=== PATIENT | female | born 1975 | race Caucasian/White ===

== ENCOUNTER → 2020-11-19 08:27 | Outpatient (BNVA) | payer BC, SELFPAY | PROVIDERS: PCP Physician Assistant; Referring Provider Physician Assistant; Visit Provider Surgery ==

== ENCOUNTER 2020-12-01 06:27 | Day surgery (SDC) | payer BC, SELFPAY ==
[2020-11-24 07:13] LABS: MANUAL DIFF FLAG NO
[2020-11-24 07:19] LABS: Basophils Percent Auto 0.3 % (0-2); Hematocrit 38.8 % (37-47); Hemoglobin 12.7 g/dl (12.0-16.0); Imm Gran Abs Auto 0.01 X10*3/uL (0.00-0.03); Imm Gran Pct Auto 0.3 % (0.0-0.4); Lymphocytes Percent Auto 24.4 % (20-40); Mean Corpuscular HGB Conc 32.7 g/dl (31.0-35.0); Mean Corpuscular Hemoglobin 28.1 pg (27.0-33.0); Mean Corpuscular Volume 85.8 fL (80-98); Mean Platelet Volume 10.2 fL (9.4-12.3); Monocytes Absolute Auto 0.3 X10*3/uL (0.1-1.2); Monocytes Percent Auto 7.8 % (2-11); Neutrophils Absolute Auto 2.6 X10*3/uL (2.0-8.3); Neutrophils Percent Auto 66.2 % (45-73); Platelet Count 235 X10*3/uL (160-400); Red Blood Count 4.52 X10*6/uL (4.20-5.50); Red Cell Distribution Width 13.2 % (11.0-16.0)
[2020-11-24 07:43] LABS: Estimated Average Glucose 100 mg/dL; Hemoglobin A1c % 5.1 %
[2020-11-24 07:49] LABS: Alanine Aminotransferase 12 U/L (0-31); Albumin Level 4.3 g/dL (3.5-5.0); Alkaline Phosphatase 48 U/L (39-117); Anion Gap 11 (12-20); Aspartate Amino Transferase 16 U/L (5-31); Bilirubin Total 0.9 mg/dL (0.0-1.0); Blood Urea Nitrogen 19 mg/dL (9-16); C Reactive Protein 1.03 mg/dL (< or = 0.50); Calcium 9.2 mg/dL (8.4-10.2); Carbon Dioxide 24 mmol/L (22-29); Chloride 107 mmol/L (96-108); Cholesterol 199 mg/dL; Estimated Glomerular Filt Rate > 60; Glucose Fasting 105 mg/dL (60-99); HDL Cholesterol 62 mg/dL; Iron 109 mcg/dL (30-160); LDL Cholesterol Calculated 114 mg/dl; Percent Iron Saturation 24 % (15-50); Potassium 4.1 mmol/L (3.3-5.1); Sodium 138 mmol/L (135-145); Total Iron Binding Capacity 446 mcg/dL (228-428); Total Protein 6.9 g/dL (6.5-8.0); Triglycerides 119 mg/dL; Unsaturated Iron Binding 337 ug/dL
--- NOTE | 2020-11-24 07:50 | ECG_ITS ---
Test Reason : OBESITY Blood Pressure : / mmHG Vent. Rate : 075 BPM Atrial Rate : 075 BPM P-R Int : 162 ms QRS Dur : 084 ms QT Int : 414 ms P-R-T Axes : 005 -23 -11 degrees QTc Int : 462 ms Normal sinus rhythm Normal ECG No previous ECGs available Referred By: Hilaria Tracey Electronically Signed By:JODY LONG MD
[2020-11-24 08:11] LABS: Thyroid Stimulating Hormone 1.86 uIU/mL (0.32-4.0); Vitamin D 25-OH Total 25.5 ng/mL (>30)
[2020-11-24 08:24] LABS: Vitamin B12 185 pg/mL (200-900)
[2020-11-24 13:42] VITALS: BMI 47.9
[2020-11-25 12:21] LABS: Calcium (PTHI) 9.4 mg/dL (8.6-10.2); PTHI 107 pg/mL (14-64)
[2020-11-27 00:16] LABS: Zinc 81 mcg/dL (60-130)
[2020-11-28 12:22] LABS: Vitamin B1 10 nmol/L (8-30)
--- NOTE | 2020-11-30 08:57 | HO.ANESPROP2 ---
Documented by User: Hermelinda Kim 11/30/20 08:59 HPI - Anesthesia Eval Consult details Narrative: 45yo F for Upper Endoscopy h/o gastric bypass PMFSH Active Problems Active Problems: All Active Problems (Updated 11/24/20 @ 13:44 by sAhwini Sanchez) Screening for diabetes mellitus (DM) (Acute) Screening for hypothyroidism (Acute) Screening for hypercholesterolemia (Acute) Screening, anemia, deficiency, iron (Acute) Shortness of breath (Acute) Preoperative examination (Acute) Morbid obesity due to excess calories (Acute) BMI 45.0-49.9, adult (Acute) Past Medical History Medical History Anxiety COVID-19 vaccine administered Depression Family history of adverse response to anesthesia in mother History of insomnia History of pernicious anemia Migraines Tachycardia Family History Family History Mother Diabetes Heart attack Father No problems noted. Brother No problems noted. Daughter No problems noted. Surgical History Surgical History History of bunionectomy History of tonsillectomy and adenoidectomy Hx of gastric bypass Hx of hernia repair S/P panniculectomy Social History Social History Are you a primary acute care occupational therapist to a significant other at home: No Do you presently have visiting nurse or other home services: No Alcohol intake: current Alcohol intake frequency: holidays/special occasions only Smoking Status: Former smoker Smoking Quit Date: > 5 yrs ago Use of substances other than those prescribed or required for medical reasons: No Have you been hit, kicked, punched, or otherwise hurt by someone within the past year? If so, by whom?: No Are you DNR?: No Advance Directives: No Advance Directives Information Provided: No Advance Directives on File: No Recently lost weight without trying: No Eating poorly because of decreased appetite: No Nutrition Risks: No Nutritional Risk Meds Allergies Allergy/AdvReac Type Severity Reaction Status Date / Time oxycodone [From PERCOCET] Allergy Unknown ITCHY Verified 12/01/20 06:36 Home Medications Medication Instructions Recorded Confirmed Last Taken Type bupropion HCl 150 mg 24 hr tablet, 150 mg PO QAM 09/20/20 11/24/20 Unknown History extended release citalopram 40 mg tablet 40 mg PO DAILY 09/20/20 11/24/20 Unknown History ergocalciferol (vitamin D2) 1,250 1,250 mcg PO QWEEK 11/19/20 11/24/20 Unknown History mcg (50,000 unit) capsule sumatriptan succinate 100 mg tablet 100 mg PO BEDTIME 11/19/20 11/24/20 Unknown History topiramate 25 mg tablet 25 mg PO BID 11/19/20 11/24/20 Unknown History lorazepam 1 mg tablet 1 mg PO DAILY PRN 11/22/20 11/24/20 Unknown History [id number]-[id number] 1 cap PO Q8H PRN 11/24/20 11/24/20 Unknown History [Fioricet] Exam Exam Date and Time: November 30, 2020 0857 Height,Weight and Vital Signs: Height 5 ft 4 in Weight 126.552 kg Pertinent Lab Results Pertinent Lab Results: Laboratory Tests 11/24/20 11/24/20 11/24/20 06:50 06:50 06:50 WBC 4.0 L RBC 4.52 Hgb 12.7 Hct 38.8 MCV 85.8 MCH 28.1 MCHC 32.7 RDW 13.2 Plt Count 235 MPV 10.2 Immature Gran % (Auto) 0.3 Neut % (Auto) 66.2 Lymph % (Auto) 24.4 [place] % (Auto) 7.8 Eos % (Auto) 1.0 Baso % (Auto) 0.3 Lymph # (Auto) 1.0 L [place] # (Auto) 0.3 Eos # (Auto) 0.0 Baso # (Auto) 0.0 Abs Immat Gran (auto) 0.01 Absolute Neuts (auto) 2.6 Absolute Nucleated RBC 0.000 Nucleated RBC % (auto) 0.0 Sodium 138 Potassium 4.1 Chloride 107 Carbon Dioxide 24 Anion Gap 11 L BUN 19 H Creatinine 0.74 Estim Creat Clear Calc TNP Estimated GFR > 60 Fasting Glucose 105 H Estimat Average Glucose 100 Hemoglobin A1c % 5.1 Calcium 9.2 Iron 109 TIBC 446 H % Saturation 24 Unsat Iron Binding 337 Total Bilirubin 0.9 AST 16 ALT 12 Alkaline Phosphatase 48 C-Reactive Protein 1.03 H Total Protein 6.9 Albumin 4.3 Triglycerides 119 Cholesterol 199 LDL Cholesterol, Calc 114 HDL Cholesterol 62 Vitamin B1 Vitamin B12 25-OH Vitamin D Total 25.5 TSH 1.86 PTH Intact Calcium (PTH Intact) Zinc 11/24/20 11/24/20 11/24/20 06:50 06:50 06:50 WBC RBC Hgb Hct MCV MCH MCHC RDW Plt Count MPV Immature Gran % (Auto) Neut % (Auto) Lymph % (Auto) [place] % (Auto) Eos % (Auto) Baso % (Auto) Lymph # (Auto) [place] # (Auto) Eos # (Auto) Baso # (Auto) Abs Immat Gran (auto) Absolute Neuts (auto) Absolute Nucleated RBC Nucleated RBC % (auto) Sodium Potassium Chloride Carbon Dioxide Anion Gap BUN Creatinine Estim Creat Clear Calc Estimated GFR Fasting Glucose Estimat Average Glucose Hemoglobin A1c % Calcium Iron TIBC % Saturation Unsat Iron Binding Total Bilirubin AST ALT Alkaline Phosphatase C-Reactive Protein Total Protein Albumin Triglycerides Cholesterol LDL Cholesterol, Calc HDL Cholesterol Vitamin B1 10 Vitamin B12 185 L 25-OH Vitamin D Total TSH PTH Intact 107 H Calcium (PTH Intact) 9.4 Zinc 11/24/20 06:50 WBC RBC Hgb Hct MCV MCH MCHC RDW Plt Count MPV Immature Gran % (Auto) Neut % (Auto) Lymph % (Auto) [place] % (Auto) Eos % (Auto) Baso % (Auto) Lymph # (Auto) [place] # (Auto) Eos # (Auto) Baso # (Auto) Abs Immat Gran (auto) Absolute Neuts (auto) Absolute Nucleated RBC Nucleated RBC % (auto) Sodium Potassium Chloride Carbon Dioxide Anion Gap BUN Creatinine Estim Creat Clear Calc Estimated GFR Fasting Glucose Estimat Average Glucose Hemoglobin A1c % Calcium Iron TIBC % Saturation Unsat Iron Binding Total Bilirubin AST ALT Alkaline Phosphatase C-Reactive Protein Total Protein Albumin Triglycerides Cholesterol LDL Cholesterol, Calc HDL Cholesterol Vitamin B1 Vitamin B12 25-OH Vitamin D Total TSH PTH Intact Calcium (PTH Intact) Zinc 81 Narrative Narrative: EKG 11/2020 Vent. Rate : 075 BPM Atrial Rate : 075 BPM P-R Int : 162 ms QRS Dur : 084 ms QT Int : 414 ms P-R-T Axes : 005 -23 -11 degrees QTc Int : 462 ms Normal sinus rhythm Normal ECG No previous ECGs available Assessment and Plan Assessment Anesthesia Assessment: Chart Reviewed Documented by User: Gilmar Rice 12/01/20 07:06 PMFSH Past Medical History Medical History Anxiety COVID-19 vaccine administered Depression Family history of adverse response to anesthesia in mother History of insomnia History of pernicious anemia Migraines Tachycardia Family History Family History Mother Diabetes Heart attack Father No problems noted. Brother No problems noted. Daughter No problems noted. Surgical History Surgical History History of bunionectomy History of tonsillectomy and adenoidectomy Hx of gastric bypass Hx of hernia repair S/P panniculectomy Social History Social History Are you a primary acute care occupational therapist to a significant other at home: No Do you presently have visiting nurse or other home services: No Alcohol intake: current Alcohol intake frequency: holidays/special occasions only Smoking Status: Former smoker Smoking Quit Date: > 5 yrs ago Use of substances other than those prescribed or required for medical reasons: No Have you been hit, kicked, punched, or otherwise hurt by someone within the past year? If so, by whom?: No Are you DNR?: No Advance Directives: No Advance Directives Information Provided: No Advance Directives on File: No Recently lost weight without trying: No Eating poorly because of decreased appetite: No Nutrition Risks: No Nutritional Risk Meds Allergies Allergy/AdvReac Type Severity Reaction Status Date / Time oxycodone [From PERCOCET] Allergy Unknown ITCHY Verified 12/01/20 06:36 Home Medications Medication Instructions Recorded Confirmed Last Taken Type bupropion HCl 150 mg 24 hr tablet, 150 mg PO QAM 09/20/20 11/24/20 Unknown History extended release citalopram 40 mg tablet 40 mg PO DAILY 09/20/20 11/24/20 Unknown History ergocalciferol (vitamin D2) 1,250 1,250 mcg PO QWEEK 11/19/20 11/24/20 Unknown History mcg (50,000 unit) capsule sumatriptan succinate 100 mg tablet 100 mg PO BEDTIME 11/19/20 11/24/20 Unknown History topiramate 25 mg tablet 25 mg PO BID 11/19/20 11/24/20 Unknown History lorazepam 1 mg tablet 1 mg PO DAILY PRN 11/22/20 11/24/20 Unknown History nbwxmpeszk-ymqhfroeyotph-qrcw 1 cap PO Q8H PRN 11/24/20 11/24/20 Unknown History [Fioricet] Exam Airway Mallampati Class: III TM Dist: >3cm Neck ROM: Full
--- NOTE | 2020-11-30 11:11 | MHC.SHP ---
Pre-Procedural Eval Section B Chief Complaint: GERD,z01.818 Allergies: Allergies Allergy/AdvReac Type Severity Reaction Status Date / Time oxycodone [From PERCOCET] Allergy Unknown ITCHY Verified 11/24/20 13:38 Plan I have reviewed the history and physical and performed a pertinent physical examination on my patient. No changes have occurred unless specified.
[2020-11-30 13:21] LABS: Vitamin A 51 mcg/dL (38-98)
--- NOTE | ~2020-12-01 | XR_ITS ---
EXAMINATION: XR CHEST CLINICAL INFORMATION: Shortness of breath. COMPARISON: None TECHNIQUE: 2 views of the chest were obtained. FINDINGS: No significant abnormality is noted involving the heart, lungs, mediastinum, bony thorax or soft tissues. XR/XR chest 2V IMPRESSION: Unremarkable chest examination.
[2020-12-01 06:41] VITALS: BP 115/69; PULSE 73; RESP 16; TEMP 36.8; O2SAT 97
[2020-12-01 06:48] LABS: UPreg QC Valid YES; Urine Pregnancy NEGATIVE (NEGATIVE)
[2020-12-01] MEDS: Lactated Ringers 1,000 ML 100 ML IVCONT (06:57)
[2020-12-01 07:03] LABS: COVID-19 Test Negative (Negative)
[2020-12-01 08:07] VITALS: BP 127/77; PULSE 71; RESP 14; TEMP 36.4; O2SAT 96
--- NOTE | 2020-12-01 08:18 | P.BOP_ITS ---
Brief Operative Note Date of Service: 12/01/20 Pre-op diagnosis: Weight gain after gastric bypass Post-op diagnosis: other (Enlarged gastric pouch and sliding hiatal hernia) Procedure: Esophagogastrojejunostomy, enteroscopy to 90 cm from the incisors Implants: None Surgeon: Hilaria Tracey MD Anesthesia: MAC Was an Jewelry Store Manager used for this Procedure?: No Estimated blood loss (mL): 0 Pathology: none sent Condition: stable Disposition: PACU
[2020-12-01 08:23] VITALS: BP 124/77; PULSE 68; RESP 16; O2SAT 98
[2020-12-01 08:30] VITALS: PULSE 62; RESP 16; O2SAT 98
--- NOTE | 2020-12-01 13:30 | OP_ITS ---
SURGEON: Hilaria Tracey MD PREOPERATIVE DIAGNOSIS: POSTOPERATIVE DIAGNOSIS: PROCEDURE PERFORMED: Esophagogastrojejunoscopy with enteroscopy to 90 cm from the incisors. ESTIMATED BLOOD LOSS: COMPLICATIONS: None. ANESTHESIA: Total intravenous anesthesia with propofol given by the nurse bisque grader. ASSISTANTS: None. SPECIMENS: PRE-PROCEDURE DIAGNOSIS: Weight gain after gastric bypass. POSTPROCEDURE DIAGNOSES: Enlarged gastric pouch and sliding hiatal hernia. FINDINGS: An enlarged gastric pouch with the GE junction located at 34 cm from the incisors and the gastrojejunal anastomosis was located at 42 cm from the incisors. The gastric part was enlarged. The anastomotic opening was normal in size and was not too large. There was a small sliding hiatal hernia that was about 2 cm in size. DESCRIPTION OF PROCEDURE: The patient was brought into the operating room and placed on the stretcher in the left lateral decubitus position. A safety time-out was performed. A bite block was placed between the teeth. Total intravenous anesthesia was administered using propofol by the nurse bisque grader. Once the patient was adequately sedated, a gastroscope was placed into posterior oropharynx and passed down the esophagus, evaluating the esophageal mucosa, which was normal. There was a small sliding hiatal hernia and the GE junction was located at 34 cm from the incisors. The gastroscope was passed into the gastric pouch, which was large for its age. The gastrojejunal anastomosis was located at 42 cm from the incisors. The anastomotic opening was normal in size for its age and was not overly enlarged. The gastroscope was easily passed into the efferent limb of the [place] limb and was passed down to 90 cm from the incisors, all of which was normal. The gastroscope was retracted back into the stomach. The stomach was desufflated. The gastroscope was removed without difficulty. The patient tolerated the procedure well and was sent to the recovery room in stable condition. MD BENTLEY Goodson/SONUL / [id number] MTDD
== END 2020-12-01 08:50 | disposition home or self-care (01) ==
PROVIDERS: Nurse Practitioner; PCP Physician Assistant; Visit Provider Surgery
PROC: 0DJ08ZZ Inspection of Upper Intestinal Tract, Via Natural or Artificial Opening Endoscopic (ICD-10-PCS; CPT 43235; principal; 2020-12-01 07:30)
DX: K21.9 Gastro-esophageal reflux disease without esophagitis (principal); R06.02 Shortness of breath; K91.2 Postsurgical malabsorption, not elsewhere classified; R63.5 Abnormal weight gain; Z90.3 Acquired absence of stomach [part of]; Z98.84 Bariatric surgery status; K44.9 Diaphragmatic hernia without obstruction or gangrene; F32.9 Major depressive disorder, single episode, unspecified; Z20.822 Contact with and (suspected) exposure to COVID-19; Z79.899 Other long term (current) drug therapy; Z88.8 Allergy status to other drugs, medicaments and biological substances
CPT/HCPCS: 43235; 36415; 71046; 80053; 80061; 81025; 82306; 82607; 83036; 83540; 83970; 84425; 84443; 84590; 84630; 85025; 86140; 87635; 93005; J1100; J2250

== ENCOUNTER → 2020-12-07 08:15 | Outpatient (BNVA) | payer BC, SELFPAY | PROVIDERS: PCP Physician Assistant; Visit Provider Surgery ==

== ENCOUNTER → 2020-12-21 08:07 | Outpatient (BNVA) | payer BC, SELFPAY | PROVIDERS: PCP Physician Assistant; Visit Provider Dietitian, Registered | DX: E66.01 Morbid (severe) obesity due to excess calories (principal) | CPT/HCPCS: 97802 ==

== ENCOUNTER → 2021-01-04 10:10 | Outpatient (BNVA) | payer BC, SELFPAY | PROVIDERS: PCP Physician Assistant; Referring Provider Physician Assistant; Visit Provider Surgery ==

== ENCOUNTER 2021-01-27 09:38 | Outpatient (REF) | payer BC, SELFPAY ==
[2021-01-28 12:22] LABS: H Pylori Breath Test NOT DETECTED (NOT DETECTED)
== END 2021-01-27 09:39 | disposition home or self-care (01) ==
LOC: HO.LNP 09:38
PROVIDERS: PCP Physician Assistant; Referring Provider Physician Assistant; Visit Provider Surgery
DX: Z01.818 Encounter for other preprocedural examination (principal); E66.01 Morbid (severe) obesity due to excess calories; Z68.42 Body mass index [BMI] 45.0-49.9, adult; Z71.3 Dietary counseling and surveillance
CPT/HCPCS: 83013

== ENCOUNTER 2021-03-17 12:29 | Outpatient (REF) | payer BC, SELFPAY | END 2021-03-17 12:30 | disposition home or self-care (01) | LOC: HO.LAB 12:29 | PROVIDERS: PCP Physician Assistant; Visit Provider Nurse Practitioner Family | DX: Z20.822 Contact with and (suspected) exposure to COVID-19 (principal); R52 Pain, unspecified | CPT/HCPCS: U0003; U0005 ==

== ENCOUNTER 2021-08-08 08:06 | Outpatient (REF) | payer BC, SELFPAY ==
--- NOTE | ~2021-08-08 | US_ITS ---
EXAMINATION: US ABDOMEN COMPLETE CLINICAL INFORMATION: Right upper quadrant pain. COMPARISON: None TECHNIQUE: Real-time imaging of the abdominal viscera. Technically limited study secondary to body habitus. FINDINGS: PANCREAS: Not well visualized due to bowel gas. ABDOMINAL AORTA: Not well visualized due to bowel gas. INFERIOR VENA CAVA: The visualized IVC is normal. LIVER: Normal. The liver is normal in size. The liver contour is normal. Parenchymal echogenicity is normal. No focal hepatic lesion. There is no intrahepatic biliary duct dilatation seen. GALLBLADDER: The gallbladder is physiologically distended. Multiple mobile gallstones are present. No evidence of gallbladder wall thickening or pericholecystic fluid. COMMON BILE DUCT: Normal in caliber measuring 0.3 cm in diameter. RIGHT KIDNEY: Normal. No hydronephrosis. No renal calculi or focal parenchymal lesions. The kidney measures 10.1 cm in maximum dimension. LEFT KIDNEY: Normal. No hydronephrosis. No renal calculi or focal parenchymal lesions. The kidney measures 10.5 cm in maximum dimension. SPLEEN: Normal. The spleen measures 11.2 cm in maximum dimension. FREE FLUID: None. US/US abdomen complete IMPRESSION: Gallstones. Limited visualization of the pancreas and aorta.
== END 2021-08-08 08:07 | disposition home or self-care (01) ==
LOC: HO.US 08:06
PROVIDERS: PCP Physician Assistant; Visit Provider Physician Assistant
DX: R10.11 Right upper quadrant pain (principal)
CPT/HCPCS: 76700

== ENCOUNTER → 2021-09-08 08:38 | Outpatient (BNVA) | payer BC, SELFPAY | PROVIDERS: PCP Physician Assistant; Referring Provider Physician Assistant; Visit Provider Surgery ==

== ENCOUNTER 2021-11-09 05:56 | Day surgery (SDC) | payer BC, SELFPAY ==
[2021-11-03 14:54] VITALS: BMI 48.2
--- NOTE | 2021-11-08 08:11 | HO.ANESPROP2 ---
Documented by User: Hermelinda Kim NP 11/08/21 08:19 HPI - Anesthesia Eval Consult details Narrative: 46yo F for Cholecystectomy Laparoscopic, Poss Open PMFSH Active Problems Active Problems: All Active Problems (Updated 11/03/21 @ 15:00 by Ashwini Sanchez RN) Screening for diabetes mellitus (DM) (Acute) Screening for hypothyroidism (Acute) Screening for hypercholesterolemia (Acute) Screening, anemia, deficiency, iron (Acute) Shortness of breath (Acute) Preoperative examination (Acute) Morbid obesity due to excess calories (Acute) BMI 45.0-49.9, adult (Acute) Skin cyst (Acute) Generalized body aches (Acute) Annual physical exam (Acute) RUQ abdominal pain (Acute) Skin cyst (Acute) Loss of transverse plantar arch of left foot (Acute) Foot pain, bilateral (Acute) Cholelithiasis (Acute) Biliary colic (Acute) Atypical chest pain (Acute) Migraines (Acute) Anxiety (Acute) Past Medical History Medical History Anxiety COVID-19 vaccine administered Depression Family history of adverse response to anesthesia in mother Hiatal hernia History of insomnia History of pernicious anemia Migraines Obesity Personal history of COVID-19 Tachycardia Family History Family History Mother Diabetes Heart attack Father No problems noted. Brother No problems noted. Daughter No problems noted. Surgical History Surgical History History of bunionectomy History of esophagogastroduodenoscopy (EGD) History of tonsillectomy and adenoidectomy Hx of gastric bypass Hx of hernia repair S/P panniculectomy Social History Social History Housing: House Are you a primary healthcare liaison to a significant other at home: No Do you presently have visiting nurse or other home services: No Alcohol intake: current Alcohol intake frequency: a few times a month Patient Tobacco Use Status: Former Tobacco user Quit Date: many yrs ago Tobacco use type: Cigarette Use of substances other than those prescribed or required for medical reasons: No Have you been hit, kicked, punched, or otherwise hurt by someone within the past year? 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 Allergies Allergy/AdvReac Type Severity Reaction Status Date / Time oxycodone [From PERCOCET] Allergy Unknown ITCHY Verified 11/09/21 06:18 Home Medications Medication Instructions Recorded Confirmed Last Taken Type citalopram 40 mg tablet 40 mg PO DAILY 09/20/20 11/03/21 11/09/21 05:30 History sumatriptan succinate 100 mg tablet 100 mg PO BEDTIME 11/19/20 09/08/21 Unknown History topiramate 25 mg tablet 25 mg PO BID 11/19/20 11/03/21 Unknown History lorazepam 1 mg tablet 1 mg PO DAILY PRN 11/22/20 11/03/21 Unknown History cholecalciferol (vitamin D3) 50 3,000 unit PO DAILY cap 01/04/21 11/03/21 Unknown History mcg (2,000 unit) capsule cyanocobalamin (vitamin B-12) 1,000 mcg PO DAILY 01/04/21 11/03/21 Unknown History 1,000 mcg capsule omeprazole 20 mg capsule,delayed 20 mg PO DAILY 01/04/21 11/03/21 Unknown History release Exam Exam Date and Time: November 08, 2021 0811 Height,Weight and Vital Signs: Height 5 ft 4 in Weight 127.459 kg Pertinent Lab Results Pertinent Lab Results: Laboratory Tests 11/24/20 11/24/20 06:50 06:50 WBC 4.0 L Hgb 12.7 Hct 38.8 Plt Count 235 Sodium 138 Potassium 4.1 Chloride 107 Carbon Dioxide 24 BUN 19 H Creatinine 0.74 Narrative Narrative: EKG 11/2020 Vent. Rate : 075 BPM ? ? Atrial Rate : 075 BPM ?? P-R Int : 162 ms? QRS Dur : 084 ms ? ? QT Int : 414 ms ? ? ? P-R-T Axes : 005 -23 -11 degrees ?? QTc Int : 462 ms ? Normal sinus rhythm Normal ECG No previous ECGs available Assessment and Plan Assessment Anesthesia Assessment: Chart Reviewed Documented by User: Marsha Lozano MD 11/09/21 08:11 PMFSH Past Medical History Medical History Anxiety COVID-19 vaccine administered Depression Family history of adverse response to anesthesia in mother Hiatal hernia History of insomnia History of pernicious anemia Migraines Obesity Personal history of COVID-19 Tachycardia Family History Family History Mother Diabetes Heart attack Father No problems noted. Brother No problems noted. Daughter No problems noted. Family history of problems with anesthesia: No Surgical History Surgical History History of bunionectomy History of esophagogastroduodenoscopy (EGD) History of tonsillectomy and adenoidectomy Hx of gastric bypass Hx of hernia repair S/P panniculectomy History of Problems with Anesthesia: No Social History Social History Housing: House Are you a primary healthcare liaison to a significant other at home: No Do you presently have visiting nurse or other home services: No Alcohol intake: current Alcohol intake frequency: a few times a month Patient Tobacco Use Status: Former Tobacco user Quit Date: many yrs ago Tobacco use type: Cigarette Use of substances other than those prescribed or required for medical reasons: No Have you been hit, kicked, punched, or otherwise hurt by someone within the past year? 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 Allergies Allergy/AdvReac Type Severity Reaction Status Date / Time oxycodone [From PERCOCET] Allergy Unknown ITCHY Verified 11/09/21 06:18 Home Medications Medication Instructions Recorded Confirmed Last Taken Type citalopram 40 mg tablet 40 mg PO DAILY 09/20/20 11/03/21 11/09/21 05:30 History sumatriptan succinate 100 mg tablet 100 mg PO BEDTIME 11/19/20 09/08/21 Unknown History topiramate 25 mg tablet 25 mg PO BID 11/19/20 11/03/21 Unknown History lorazepam 1 mg tablet 1 mg PO DAILY PRN 11/22/20 11/03/21 Unknown History cholecalciferol (vitamin D3) 50 3,000 unit PO DAILY cap 01/04/21 11/03/21 Unknown History mcg (2,000 unit) capsule cyanocobalamin (vitamin B-12) 1,000 mcg PO DAILY 01/04/21 11/03/21 Unknown History 1,000 mcg capsule omeprazole 20 mg capsule,delayed 20 mg PO DAILY 01/04/21 11/03/21 Unknown History release Exam Height,Weight and Vital Signs: Height 5 ft 4 in Weight 127.459 kg Vital Signs Temp Pulse Resp BP Pulse Ox 11/09/21 06:12 97.2 F 76 16 136/84 98 Pertinent Lab Results Pertinent Lab Results: Laboratory Tests 11/24/20 11/24/20 06:50 06:50 WBC 4.0 L Hgb 12.7 Hct 38.8 Plt Count 235 Sodium 138 Potassium 4.1 Chloride 107 Carbon Dioxide 24 BUN 19 H Creatinine 0.74 Lab Results 11/09/21 Range/Units 06:05 Urine Test NEGATIVE (NEGATIVE) Airway Mallampati Class: III TM Dist: >3cm Neck ROM: Full Loose/Missing/Broken Teeth: No Heart: RRR Lungs: CTAB Assessment and Plan Assessment Anesthesia Assessment: Anesthesia Plan Discussed Final Anesthetic Review Family History of Problems with Anesthesia: No History of Problems with Anesthesia: No NPO: Yes ASA Class: III Final Preanesthetic Review: No Changes in Pt Med Stat, Meds/Allgs Chart Reviewed, Consent Obtained/Reviewed and Anes Risks/Benef Reviewed Patient Risk: Intermediate Procedure Risk: Intermediate Assessment/Block/Sedation in SS: Assess/Block/Sedation- Anesthetic Plan Anesthetic Plan: GA Disposition: Standard PACU
[2021-11-09 06:12] VITALS: BP 136/84; PULSE 76; RESP 16; TEMP 36.2; O2SAT 98
[2021-11-09] MEDS: Acetaminophen 325 MG TABLET 650 MG PO (06:23)
[2021-11-09] MEDS: Lactated Ringers 1,000 ML 100 ML IVCONT (06:31)
[2021-11-09 06:33] LABS: UPreg QC Valid YES; Urine Pregnancy NEGATIVE (NEGATIVE)
--- NOTE | 2021-11-09 07:22 | MHC.SHP ---
Pre-Procedural Eval Section A Date of Service: 11/09/21 The patient is an INPATIENT: No Changes since office visit: Yes Patient answered all questions; No Cold of Flu in the past 2 weeks, No New Medical Problems and No Changes in Medication The History & Physical has been completed within 30 days and I have reviewed it.: Yes Section B Chief Complaint: Cholelithiasis, Biliary colic Allergies: Allergies Allergy/AdvReac Type Severity Reaction Status Date / Time oxycodone [From PERCOCET] Allergy Unknown ITCHY Verified 11/09/21 06:18 Plan Diagnosis/Plan: Unchanged I have reviewed the history and physical and performed a pertinent physical examination on my patient. No changes have occurred unless specified.
--- NOTE | 2021-11-09 09:10 | W.PM.OPN ---
Operative Note Operative Note Date of Service: 11/09/21 Narrative: Preoperative diagnosis: Biliary colic, cholelithiasis Postoperative diagnosis: Same Procedure: Laparoscopic cholecystectomy Surgeon: Bart Garcia MD Shift Boss: BLAYNE Medrano Anesthesia: General endotracheal Indications for procedure:46 year old female presenting with complaints of pain in the right upper quadrant found to have tenderness in the right upper quadrant found to have several gallstones in the gallbladder Operative findings:Dense adhesions to the abdominal was due to previous hernia surgery. Acutely inflammed gallbladder. Specimen: gallbladder Estimated blood loss:2 mls Complications: none Procedure details: Patient was brought to the OR and placed in a supine position. After administering general anesthesia the patient's abdomen was prepped with ChloraPrep and draped in a sterile fashion. Local anesthesia consisting of 0.5% Sensorcaine without epinephrine was infiltrated in a periumbilical region. A 5 mm incision was made above the umbilicus in a transverse fashion. The Veress needle was then inserted while elevating abdominal cavity with towel clips. After positive drop test the abdomen was insufflated to a pressure of 15 mm of mercury. The Veress needle was then removed and a 5 mm trocar inserted. The camera was inserted in the abdomen explored. Dense adhesions were noted to the anterior abdominal wall. Patient had a previous laparoscopic hernia repair in the upper midline with a large mesh over the midline. Dense adhesions were obscuring the view of the gallbladder. A 2nd trocar was placed laterally in the right upper quadrant. The camera was placed in this trocar and operated by the porcelain buildup assistant. Using the umbilical incision LigaSure was used to divide the adhesions at the abdominal wall. Care was taken to avoid injury to the small bowel below. Once adhesions were taken down, a 12 mm trocar was then placed in the epigastrium. Two 5 mm trocars placed in the right upper quadrant by the porcelain buildup assistant. The patient was placed in reverse Trendelenburg positioning and rotated to the left. The gallbladder was grasped with the fundus and retracted cephalad by the porcelain buildup assistant. The infundibulum was then grasped and retracted away from the liver bed, also by the porcelain buildup assistant. The Dolphin dissected was then used by the surgeon to dissect the peritoneum off the infundibulum to reveal the junction with the cystic duct. Cystic artery was noted slightly medial and posterior to the cystic duct. After obtaining a critical view the cystic duct was doubly clipped and divided. The cystic artery was then doubly clipped and divided. The gallbladder was then dissected off the liver bed using electrocautery with an L hook. Hemostasis was assured all times using the electrocautery. When the gallbladder is completely dissected off the liver bed was placed in an Endo-Catch bag and brought out through the epigastric incision. The gallbladder was sent to pathology for further examination. The abdomen was then re-examined. The liver bed was irrigated and suctioned dry. No bleeding or bile leak could be identified. CO2 was then evacuated and all trocars removed. Fascia was closed at the epigastric incision using a [id number] 0 Polysorb suture. Skin was closed in all incisions using a subcuticular 4 0 Polysorb suture by both the surgeon and porcelain buildup assistant. Sterile dressings consisting of Steri-Strips, 2 x 2 gauze, and Tegaderm were then applied. The patient tolerated the procedure well. Sponge instrument and needle counts reported as correct. The patient was transferred to PACU in stable condition.
[2021-11-09 09:18] VITALS: BP 132/79; PULSE 81; RESP 20; TEMP 36.2; O2SAT 99
[2021-11-09 09:23] VITALS: BP 126/75; PULSE 72; RESP 20; O2SAT 99
[2021-11-09 09:28] VITALS: BP 121/69; PULSE 74; RESP 13; O2SAT 95
[2021-11-09 09:33] VITALS: BP 116/64; PULSE 78; RESP 20; O2SAT 98
[2021-11-09 09:48] VITALS: BP 121/78; PULSE 75; RESP 22; TEMP 36.2; O2SAT 96
== END 2021-11-09 10:30 | disposition home or self-care (01) ==
PROVIDERS: Nurse Practitioner; PCP Physician Assistant; Visit Provider Surgery
PROC: 0FT44ZZ Resection of Gallbladder, Percutaneous Endoscopic Approach (ICD-10-PCS; CPT 47562; principal; 2021-11-09 07:30)
DX: K80.10 Calculus of gallbladder with chronic cholecystitis without obstruction (principal); K66.0 Peritoneal adhesions (postprocedural) (postinfection); R00.0 Tachycardia, unspecified; F41.8 Other specified anxiety disorders; Z79.899 Other long term (current) drug therapy; Z88.8 Allergy status to other drugs, medicaments and biological substances; Z98.84 Bariatric surgery status; Z90.49 Acquired absence of other specified parts of digestive tract; Z98.890 Other specified postprocedural states; Z87.891 Personal history of nicotine dependence
CPT/HCPCS: 47562; 81025; 88304; J1100; J1170; J2250; J2405; J3010

== ENCOUNTER → 2021-11-17 08:57 | Outpatient (BNVA) | payer BC, SELFPAY | PROVIDERS: PCP Physician Assistant; Referring Provider Physician Assistant; Visit Provider Surgery | DX: K80.50 Calculus of bile duct without cholangitis or cholecystitis without obstruction (principal) ==

== ENCOUNTER 2021-12-08 03:23 | Observation (INO) | payer BC, SELFPAY ==
[2021-12-08] VITALS (8 sets, daily range): BP systolic 105–149; BP diastolic 63–103; PULSE 60–87; RESP 14–17; TEMP 36.1–36.6; O2SAT 94–97; BMI 47.2
--- NOTE | ~2021-12-08 | CT_ITS ---
EXAMINATION: CT ABDOMEN AND PELVIS WITH CONTRAST CLINICAL INFORMATION: Right flank pain. Possible liver hematoma, stone. COMPARISON: 12/08/2021 TECHNIQUE: Multidetector volumetric images were obtained from the superior aspect of the liver through the pubic symphysis following administration 100 mL of Omnipaque 300 intravenous contrast. Sagittal and coronal reformatted images were obtained on the technologist's workstation. Oral contrast: No This CT examination was performed using dose optimization techniques as appropriate, variously including the following: *Automated exposure control *Adjustment of mA and/or kV according to patient size (this includes techniques or standardized protocols for targeted exams where dose is matched to indication/reason for exam; i.e. extremities or head) *Use of iterative reconstruction technique DLP: 1471 mGy-cm FINDINGS: LUNG BASES: Trace right pleural effusion. Bibasilar atelectasis. The visualized cardiac structures are within normal limits. LIVER, GALLBLADDER, AND BILIARY TREE: Redemonstration of the exophytic area at the lower aspect of the right lobe of the liver. This measures higher than simple fluid attenuation, but lower attenuation than the adjacent liver parenchyma. This area measures 2.5 cm. Persistent mild adjacent stranding. The liver is otherwise normal in size, shape, and attenuation. No focal hepatic lesion or biliary ductal dilatation is present. Cholecystectomy. PANCREAS: Unremarkable. SPLEEN: Unremarkable. ADRENAL GLANDS: Subtle nodularity of the left adrenal gland measuring 1.1 cm. On prior noncontrast study this shows Hounsfield unit measurement consistent with lipid rich adenoma. KIDNEYS AND URETERS: The kidneys are normal in size, shape, and attenuation. No hydronephrosis, hydroureter, or calculi seen. No perinephric stranding. BLADDER: Unremarkable. GASTROINTESTINAL TRACT: Postsurgical changes of gastric bypass. Nonobstructive appearance of the bowel with normal caliber small bowel. Normal appendix. No colonic wall thickening or inflammatory change. No free air. No significant free fluid. ABDOMINAL WALL: No significant hernia is appreciated. LYMPH NODES: Normal. VASCULAR: Unremarkable. PELVIC VISCERA: Anteverted uterus with IUD in place. Bilateral adnexal follicles with no suspicious mass. OSSEOUS STRUCTURES: No acute or suspicious osseous abnormality. CT/CT abdomen pelvis w con IMPRESSION: Redemonstration of the exophytic area at the inferior aspect of the right lobe of the liver. This is nonspecific. Hematoma is possible. This is unchanged in size from prior. This is not visualized on the previous ultrasound. As such, consider follow-up CT to determine resolution or stability. Nonemergent MRI could also be performed if clinically indicated. No additional acute finding. No hydronephrosis or nephrolithiasis. The bowel is unremarkable. Fleischner guidelines were followed.
--- NOTE | ~2021-12-08 | US_ITS ---
EXAMINATION: US ABDOMEN LIMITED CLINICAL INFORMATION: Right upper quadrant pain, status post laparoscopic cholecystectomy. Abnormal findings on CT exam. COMPARISON: CT abdomen from 12/08/2021. TECHNIQUE: Real-time imaging of the right upper quadrant abdominal viscera. FINDINGS: PANCREAS: The pancreas is obscured by bowel gas. LIVER: Liver has normal size and contour. No focal liver lesion or intrahepatic bile duct dilatation. GALLBLADDER: Surgically absent. COMMON BILE DUCT: Normal in caliber measuring 0.5 cm in diameter. RIGHT KIDNEY: Normal. No hydronephrosis. No renal calculi or focal parenchymal lesions. The kidney measures 11.1 cm in maximum dimension. FREE FLUID: Small amount of free fluid is detected inferior to the right hepatic lobe in region of Morison's pouch. This area of hypoechoic fluid measures up to 5.4 cm in length and 1.3 cm in width (image 61 of 75). This fluid does not exert any mass effect upon the liver. A 0.9 cm echogenic structure in this area might represent a dropped gallstone (image 38 of 75) after recent cholecystectomy. The fluid is nonspecific. It could represent a small liquefying hematoma or residual small postoperative biloma. US/US abdomen limited IMPRESSION: A small amount of free fluid is detected in inferior to the right hepatic lobe, in region of Morison's pouch. In this same area, there is 0.9 cm echogenic structure, possibly representing a dropped gallstone.
--- NOTE | ~2021-12-08 | CT_ITS ---
EXAMINATION: CT ABDOMEN AND PELVIS WITHOUT CONTRAST CLINICAL INFORMATION: Upper abdominal pain, cholecystectomy 4 weeks ago COMPARISON: Ultrasound 08/08/2021 TECHNIQUE: Multidetector volumetric imaging was performed from the superior aspect of the liver through the pubic symphysis. Sagittal and coronal reformatted images were obtained on the technologist's workstation. This CT examination was performed using dose optimization techniques as appropriate, variously including the following: *Automated exposure control *Adjustment of mA and/or kV according to patient size (this includes techniques or standardized protocols for targeted exams where dose is matched to indication/reason for exam; i.e. extremities or head) *Use of iterative reconstruction technique DLP: 1355 mGy-cm FINDINGS: LUNG BASES: Mild pleural thickening versus trace effusion at the right base. LIVER, GALLBLADDER, AND BILIARY TREE: The liver is normal in size, shape, and attenuation. There is mild bulging along the contour of the inferior right hepatic lobe such as seen on axial image 33/105 and coronal image 67. There is ill-defined mild hyperdensity in this region with subtle surrounding hypoattenuation, not adequately characterized on this exam. In the coronal plane this region measures up to approximately 3.6 cm. Mild adjacent fat stranding is noted. No biliary ductal dilatation is present. Patient is status post cholecystectomy. PANCREAS: Unremarkable. SPLEEN: Unremarkable. ADRENAL GLANDS: Unremarkable. KIDNEYS AND URETERS: The kidneys are normal in size, shape, and attenuation. No hydronephrosis, hydroureter, or calculi seen. Nonspecific mild perinephric stranding. BLADDER: Minimally distended and not well evaluated. GASTROINTESTINAL TRACT: Small hiatal hernia. Status post gastric bypass surgery. No evidence of bowel obstruction. No significant bowel wall thickening or pericolonic inflammation. The appendix is unremarkable. No free fluid or free air is seen. ABDOMINAL WALL: No significant hernia is appreciated. LYMPH NODES: Normal. VASCULAR: Unremarkable. PELVIC VISCERA: IUD is present in the uterus. OSSEOUS STRUCTURES: Unremarkable. CT/CT abdomen pelvis wo con IMPRESSION: 1. Mild bulging along the contour of the inferior right hepatic lobe with an ill-defined region of heterogeneous attenuation measuring approximately 3.6 cm. In the setting of relatively recent cholecystectomy, appearance is suggestive of a peripheral hepatic hematoma. Evaluation with ultrasound may be helpful to assess for the extent of this abnormality. Underlying mass would be difficult to entirely exclude, though is considered less likely given no abnormality was seen in this region on ultrasound of 08/08/2021. Mild adjacent stranding is noted, without additional intra-abdominal collection. 2. No acute bowel abnormality. Status post gastric bypass surgery. 3. Small hiatal hernia. This was discussed with Dr. Martin on 12/08/2021 6:47 AM.
[2021-12-08 04:04] LABS: MANUAL DIFF FLAG NO
[2021-12-08 04:05] LABS: Basophils Percent Auto 0.2 % (0-2); Eosinophils Absolute Auto 0.1 X10*3/uL (0.0-0.4); Eosinophils Percent Auto 1.9 % (0-4); Hematocrit 36.4 % (37.0-47.0); Hemoglobin 11.5 g/dl (12.0-16.0); Imm Gran Abs Auto 0.01 X10*3/uL (0.00-0.03); Imm Gran Pct Auto 0.2 % (0.0-0.4); Lymphocytes Absolute Auto 1.5 X10*3/uL (1.2-4.9); Lymphocytes Percent Auto 23.2 % (20-40); Mean Corpuscular HGB Conc 31.6 g/dl (31.0-35.0); Mean Corpuscular Hemoglobin 26.4 pg (27.0-33.0); Mean Corpuscular Volume 83.7 fL (80.0-98.0); Mean Platelet Volume 9.6 fL (9.4-12.3); Monocytes Absolute Auto 0.5 X10*3/uL (0.1-1.2); Monocytes Percent Auto 7.3 % (2-11); Neutrophils Absolute Auto 4.2 x10*3/uL (2.0-8.3); Neutrophils Percent Auto 67.2 % (45-73); Platelet Count 238 X10*3/uL (160-400); Red Blood Count 4.35 X10*6/uL (4.20-5.50); Red Cell Distribution Width 13.6 % (11.0-16.0); White Blood Count 6.3 X10*3/uL (4.8-10.8)
[2021-12-08 04:24] LABS: Alanine Aminotransferase 16 U/L (0-31); Albumin Level 3.7 g/dL (3.5-5.0); Alkaline Phosphatase 65 U/L (39-117); Anion Gap 13 (12-20); Aspartate Amino Transferase 15 U/L (5-31); Bilirubin Direct 0.3 mg/dL (0.0-0.5); Bilirubin Total 0.6 mg/dL (0.0-1.0); Blood Urea Nitrogen 12 mg/dL (9-16); Calcium 8.7 mg/dL (8.4-10.2); Carbon Dioxide 20 mmol/L (22-29); Chloride 106 mmol/L (96-108); Creatinine Clr Calc Pharmacy 134.4; Estimated Glomerular Filt Rate > 60; Glucose Random 103 mg/dL (60-115); Lipase 20 U/L (8-78); Potassium 3.9 mmol/L (3.3-5.1); Sodium 135 mmol/L (135-145); Total Protein 6.2 g/dL (6.5-8.0)
--- NOTE | 2021-12-08 04:30 | ED_ITS ---
HPI - General Adult General Chief complaint: Abdominal Pain Stated complaint: Back pain Time Seen by Provider: 12/08/21 04:27 Source: patient and family (Spouse) Mode of arrival: ambulatory Limitations: no limitations History of Present Illness HPI narrative: 46-year-old female status post laparoscopic cholecystectomy came in for evaluation of right-sided abdominal pain radiate to the back and goes to the right shoulder. Pain started about a week ago but progressively getting worse, patient declined any difficulty breathing or chest pain. No fever or chills. No urinary frequency or dysuria. Related Data Home Medications Medication Instructions Recorded Confirmed citalopram 40 mg tablet 40 mg PO DAILY 09/20/20 11/03/21 sumatriptan succinate 100 mg tablet 100 mg PO BEDTIME 11/19/20 09/08/21 topiramate 25 mg tablet 25 mg PO BID 11/19/20 11/03/21 lorazepam 1 mg tablet 1 mg PO DAILY PRN 11/22/20 11/03/21 cholecalciferol (vitamin D3) 50 3,000 unit PO DAILY cap 01/04/21 11/03/21 mcg (2,000 unit) capsule cyanocobalamin (vitamin B-12) 1,000 mcg PO DAILY 01/04/21 11/03/21 1,000 mcg capsule omeprazole 20 mg capsule,delayed 20 mg PO DAILY 01/04/21 11/03/21 release Previous Rx's Medication Instructions Recorded doxycycline hyclate 100 mg tablet 100 mg PO BID 7 Days #14 tab 03/24/21 mupirocin 2 % topical ointment 1 appl TOPICAL BID 15 Days #22 g 03/24/21 bupropion HCl 150 mg 24 hr tablet, 150 mg PO QAM 90 Days #90 tab 09/12/21 extended release topiramate 50 mg tablet 50 mg PO BEDTIME 90 Days #90 tab 09/27/21 hydromorphone 2 mg tablet 2 mg PO Q6H PRN #14 tab 11/09/21 (Dilaudid) Allergies Allergy/AdvReac Type Severity Reaction Status Date / Time oxycodone [From PERCOCET] Allergy Unknown ITCHY Verified 11/09/21 06:18 Review of Systems Review of Systems: All other systems are reviewed and are negative Constitutional: Reports as per HPI and Reports no additional constitutional complaints Eyes: Reports as per HPI and Reports no additional eye complaints Reports system reviewed and no additional complaints, except as documented Cardiovascular: Reports as per HPI and Reports no additional cardiovascular complaints Respiratory: Reports as per HPI and Reports no additional respiratory complaints Gastrointestinal: Reports as per HPI and Reports no additional gastrointestinal complaints Genitourinary: Reports no additional female genitourinary complaints Musculoskeletal: Reports no additional musculoskeletal complaints Skin/Breast: Reports system reviewed and no additional complaints, except as docu Psychiatric: Reports no additional psychiatric complaints Endocrine: Reports no additional endocrine complaints Hematologic/Lymphatic: Reports no additional hematologic/lymphatic complaints Allergic/Immunologic: Reports no additional allergic/immunologic complaints Reports system reviewed and no additional complaints, except as documented and Reports Abnormal speech present [facility] Past Medical History Medical History Anxiety COVID-19 vaccine administered Depression Family history of adverse response to anesthesia in mother Hiatal hernia History of insomnia History of pernicious anemia Migraines Obesity Personal history of COVID-19 Tachycardia Surgical History History of bunionectomy History of esophagogastroduodenoscopy (EGD) History of tonsillectomy and adenoidectomy Hx of gastric bypass Hx of hernia repair S/P laparoscopic cholecystectomy (11/09/21) S/P panniculectomy Family History Family History Mother Diabetes Heart attack Father No problems noted. Brother No problems noted. Daughter No problems noted. 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 Blood pressure no rmal. Heart rate normal. Respiration rate normal. Temperature normal. Oxygen saturation normal. Appearance: Alert. Oriented X3. No acute distress. Head: Normal external exam. Normocephalic. Atraumatic. No [place] signs noted. No raccoon eyes noted Eyes: PERRLA. EOMI. Conjunctiva and sclera normal. Eyelids normal. ENT: TM's Normal. Pharynx normal. Uvula midline. Moist mucous membranes. No trismus noted. No drooling noted. No muffled voice noted. Neck: Normal inspection. Neck supple. FROM. No adenopathy. Thyroid Normal. No meningeal signs. No neck mass noted. CVS: Normal heart rate and rhythm. Heart sound normal. No murmurs noted. Pulses normal throughout. Respiratory: No respiratory distress. Painless inspiration. Breath sounds normal. No wheezes/rales/rhonchi noted. Chest nontender. No accessory muscle usage noted or decreased air movement noted. Abdomen: Soft, obese and nontender. Incision site is dry, clean, and intact. With no discharge. Bowel sounds normal in all 4 quadrants. No distention noted. No organomegaly noted. No visible injury noted. Back: No CVA tenderness. Full range of motion noted. Skin: Skin warm and dry. Normal skin color. Normal skin turgor. No rashes/lesions/lacerations noted. Extremities: No lower extremity edema. Extremities exhibit normal range of motion. Extremities nontender. Neuro: Oriented X 3. Cranial nerve exam: II-XII are grossly intact No motor deficit. No sensory deficit. Reflexes normal. Course Course Course Narrative: Assessment and plan. 46-year-old female status post cholecystectomy a month ago by Dr. Garcia, been having on and off postoperative pain in the right upper quadrant radiate to the back, last night felt pain 10/10 and came to the ER for further evaluation. Labs are unremarkable, patient already feels better with p.o. oxycodone, awaiting for CT abdomen and pelvis for further evaluation of postoperative complication case discussed with who recommended ultrasound, signed out to Dr. Mason Medical Decision Making Lab Data Lab results reviewed: Yes I reviewed the patient's lab results. Result diagrams: 12/08/21 03:59 12/08/21 03:59 Labs: Lab Results 12/08/21 12/08/2122 Range/Units 03:59 03:59 06:04 WBC 6.3 (4.8-10.8) X10*3/uL RBC 4.35 (4.20-5.50) X10*6/uL Hgb 11.5 L (12.0-16.0) g/dl Hct 36.4 L (37.0-47.0) % MCV 83.7 (80.0-98.0) fL MCH 26.4 L (27.0-33.0) pg MCHC 31.6 (31.0-35.0) g/dl RDW 13.6 (11.0-16.0) % Plt Count 238 (160-400) X10*3/uL MPV 9.6 (9.4-12.3) fL Immature Gran % (Auto) 0.2 (0.0-0.4) % Neut % (Auto) 67.2 (45-73) % Lymph % (Auto) 23.2 (20-40) % [place] % (Auto) 7.3 (2-11) % Eos % (Auto) 1.9 (0-4) % Baso % (Auto) 0.2 (0-2) % Lymph # (Auto) 1.5 (1.2-4.9) X10*3/uL [place] # (Auto) 0.5 (0.1-1.2) X10*3/uL Eos # (Auto) 0.1 (0.0-0.4) X10*3/uL Baso # (Auto) 0.0 (0.0-0.2) X10*3/uL Abs Immat Gran (auto) 0.01 (0.00-0.03) X10*3/uL Absolute Neuts (auto) 4.2 (2.0-8.3) x10*3/uL Absolute Nucleated RBC 0.000 (0.0-0.012) X10*3/uL Nucleated RBC % (auto) 0.0 (0.0-0.2) /100WBC Sodium 135 (135-145) mmol/L Potassium 3.9 (3.3-5.1) mmol/L Chloride 106 (96-108) mmol/L Carbon Dioxide 20 L (22-29) mmol/L Anion Gap 13 (12-20) BUN 12 (9-16) mg/dL Creatinine 0.69 (0.5-1.4) mg/dL Estim Creat Clear Calc 134.4 Estimated GFR > 60 Random Glucose 103 (60-115) mg/dL Calcium 8.7 (8.4-10.2) mg/dL Total Bilirubin 0.6 (0.0-1.0) mg/dL Direct Bilirubin 0.3 (0.0-0.5) mg/dL AST 15 (5-31) U/L ALT 16 (0-31) U/L Alkaline Phosphatase 65 D (39-117) U/L Total Protein 6.2 L (6.5-8.0) g/dL Albumin 3.7 (3.5-5.0) g/dL Lipase 20 (8-78) U/L Urine Color YELLOW Urine Appearance HAZY Urine pH 6.0 (5.0-8.0) Ur Specific [place] 1.020 (1.005-1.025) Urine Protein NEG (NEG-TRACE) MG/DL Urine Glucose (UA) NEG (NEG) MG/DL Urine Ketones NEG (NEG) MG/DL Urine Blood NEG (NEG) Urine Nitrite NEG (NEG) Ur Leukocyte Esterase NEG (NEG) Urine Test (NEGATIVE) 12/08/21 Range/Units 06:04 WBC (4.8-10.8) X10*3/uL RBC (4.20-5.50) X10*6/uL Hgb (12.0-16.0) g/dl Hct (37.0-47.0) % MCV (80.0-98.0) fL MCH (27.0-33.0) pg MCHC (31.0-35.0) g/dl RDW (11.0-16.0) % Plt Count (160-400) X10*3/uL MPV (9.4-12.3) fL Immature Gran % (Auto) (0.0-0.4) % Neut % (Auto) (45-73) % Lymph % (Auto) (20-40) % [place] % (Auto) (2-11) % Eos % (Auto) (0-4) % Baso % (Auto) (0-2) % Lymph # (Auto) (1.2-4.9) X10*3/uL [place] # (Auto) (0.1-1.2) X10*3/uL Eos # (Auto) (0.0-0.4) X10*3/uL Baso # (Auto) (0.0-0.2) X10*3/uL Abs Immat Gran (auto) (0.00-0.03) X10*3/uL Absolute Neuts (auto) (2.0-8.3) x10*3/uL Absolute Nucleated RBC (0.0-0.012) X10*3/uL Nucleated RBC % (auto) (0.0-0.2) /100WBC Sodium (135-145) mmol/L Potassium (3.3-5.1) mmol/L Chloride (96-108) mmol/L Carbon Dioxide (22-29) mmol/L Anion Gap (12-20) BUN (9-16) mg/dL Creatinine (0.5-1.4) mg/dL Estim Creat Clear Calc Estimated GFR Random Glucose (60-115) mg/dL Calcium (8.4-10.2) mg/dL Total Bilirubin (0.0-1.0) mg/dL Direct Bilirubin (0.0-0.5) mg/dL AST (5-31) U/L ALT (0-31) U/L Alkaline Phosphatase (39-117) U/L Total Protein (6.5-8.0) g/dL Albumin (3.5-5.0) g/dL Lipase (8-78) U/L Urine Color Urine Appearance Urine pH (5.0-8.0) Ur Specific [place] (1.005-1.025) Urine Protein (NEG-TRACE) MG/DL Urine Glucose (UA) (NEG) MG/DL Urine Ketones (NEG) MG/DL Urine Blood (NEG) Urine Nitrite (NEG) Ur Leukocyte Esterase (NEG) Urine Test NEGATIVE (NEGATIVE) Discharge Plan Discharge Clinical Impression: RUQ abdominal pain, Status post laparoscopic cholecystectomy Patient Disposition: Still a Patient Prescriptions: No Action bupropion HCl 150 mg tablet extended release 24 hr 150 mg PO QAM 90 Days Qty: 90 1RF topiramate 50 mg tablet 50 mg PO BEDTIME 90 Days Qty: 90 1RF hydromorphone [Dilaudid] 2 mg tablet 2 mg PO Q6H PRN (Reason: pain (scale score 7-10)) Qty: 14 0RF mupirocin 2 % ointment 1 appl topical BID 15 Days Qty: 22 1RF doxycycline hyclate 100 mg tablet 100 mg PO BID 7 Days Qty: 14 0RF citalopram 40 mg tablet 40 mg PO DAILY 0RF lorazepam 1 mg tablet 1 mg PO DAILY PRN (Reason: Anxiety) 0RF sumatriptan succinate 100 mg tablet 100 mg PO BEDTIME 0RF topiramate 25 mg tablet 25 mg PO BID 0RF cholecalciferol (vitamin D3) 50 mcg (2,000 unit) capsule 3,000 unit PO DAILY 0RF cyanocobalamin (vitamin B-12) 1,000 mcg capsule 1,000 mcg PO DAILY 0RF omeprazole 20 mg capsule,delayed release(DR/EC) 20 mg PO DAILY 0RF
[2021-12-08 06:10] LABS: Appearance Urine HAZY; Color Urine YELLOW; Glucose Urine UA NEG (NEG); Leukocyte Esterase Urine NEG (NEG); Nitrite Urine NEG (NEG); Urine Blood NEG (NEG); Urine Ketones NEG (NEG); Urine Protein NEG (NEG-TRACE)
[2021-12-08 06:12] LABS: UPreg QC Valid YES; Urine Pregnancy NEGATIVE (NEGATIVE)
[2021-12-08] MEDS: oxyCODONE HCl Immed Release 5 MG TABLET PO (06:12)
--- NOTE | 2021-12-08 09:02 | PHA.MEDREC ---
Pharmacy Consult ? Medication Reconciliation Pharmacy has completed the medication reconciliation. Patient reported all medications. Nidia Hurley, CrystalD
[2021-12-08 09:35] LABS: COVID-19 Test Negative (Negative); IDNOW Serial# 9DD0AD1C
[2021-12-08] MEDS: Piperacillin Sodium/Tazobactam 3.375 GM in 0.9 % Sodium Chloride 50 ML IV ×3 (09:48→21:26)
--- NOTE | 2021-12-08 10:01 | P.CONGS_ITS ---
History of Present Illness Consult details Consult date: 12/08/21 Reason for consult: abdominal pain Requesting physician: Bart Garcia Narrative: 46 yo woman who is s/p lap patel on 11/09 21 and GBP 2001 presented to ED today with complaints of severe right flank and RUQ pain that radiates to her right chest wall and takes her breath away. Pt states the pain has been present since her lap patel but has gotten worse over the last week or so. + nausea due to pain, no emesis and no lower GI symptoms. Regular BM's and flatus. Patient was seen in [facility] office in 2020 when she was interested in revision of her previous GBP done at [facility] in 2001, Dr Tracey did an EGD in November 2020 and patient did not return for appts after January 2021. Review of Systems Constitutional: Constitutional: Reports as per [facility] Past Medical History Medical History Anxiety COVID-19 vaccine administered Depression Family history of adverse response to anesthesia in mother Hiatal hernia History of insomnia History of pernicious anemia Migraines Obesity Personal history of COVID-19 Tachycardia Family History Family History Mother Diabetes Heart attack Father No problems noted. Brother No problems noted. Daughter No problems noted. Surgical History Surgical History (Updated 12/08/21 @ 10:08 by Lisa Byrd PA-C) History of bunionectomy History of esophagogastroduodenoscopy (EGD) History of tonsillectomy and adenoidectomy Hx of gastric bypass Hx of hernia repair S/P laparoscopic cholecystectomy (11/09/21) S/P panniculectomy Social History Social History Housing: House Are you a primary healthcare business analyst to a significant other at home: No Do you presently have visiting nurse or other home services: No Alcohol intake: current Alcohol intake frequency: a few times a month Patient Tobacco Use Status: Former Tobacco user Quit Date: many yrs ago Tobacco use type: Cigarette Advance Directives: No service: No Current occupational status: employed 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 Allergies Allergy/AdvReac Type Severity Reaction Status Date / Time oxycodone [From PERCOCET] Allergy Unknown ITCHY Verified 11/09/21 06:18 Active Medications: Current Medications Hydromorphone HCl (Hydromorphone Hcl 1 Mg/Ml Syringe) 0.5 mg IVPUSH Q4H PRN; Protocol PRN Reason: Pain, Severe (Pain Scale 7-10) Acetaminophen (Ofirmev) 1,000 mg in 100 mls @ 400 mls/hr IV Q6H [facility]ILA Stop: 12/09/21 03:29 Piperacillin Sod/Tazobactam (Sod 3.375 gm/ Sodium Chloride) 50 mls @ 100 mls/hr IV Q6H [facility] Last Admin: 12/08/21 09:48 Dose: 100 mls/hr Documented by: Ondansetron HCl (Ondansetron Hcl 4 Mg/2 Ml Vial) 4 mg IVPUSH QID PRN PRN Reason: Nausea Pharmacy Consult (Consult Rx Perform Med Rec) 1 each MISCELLANE ONCE PRN PRN Reason: Consult order Sodium Chloride (0.9 % Sodium Chloride Flush 3 Ml Syringe) 3 ml IVFLUSH [facility] Zolpidem Tartrate (Zolpidem Tartrate 5 Mg Tablet) 5 mg PO BEDTIME PRN PRN Reason: Insomnia Home Medications Medication Instructions Recorded Confirmed Last Taken Type citalopram 40 mg tablet 40 mg PO DAILY 09/20/20 12/08/21 12/07/21 History sumatriptan succinate 100 mg tablet 100 mg PO BEDTIME PRN 11/19/20 12/08/21 12/07/21 History lorazepam 1 mg tablet 1 mg PO BEDTIME 11/22/20 12/08/21 12/07/21 History cholecalciferol (vitamin D3) 50 3,000 unit PO DAILY cap 01/04/21 12/08/21 12/07/21 History mcg (2,000 unit) capsule omeprazole 20 mg capsule,delayed 20 mg PO DAILY PRN 01/04/21 12/08/21 Unknown History release Physical Exam Vital Signs: Vital Signs: Last Vital Signs Temp 97.8 F 12/08/21 03:48 Pulse 87 12/08/21 03:48 Resp 16 12/08/21 03:48 BP 144/103 H 12/08/21 03:48 Pulse Ox 97 12/08/21 03:48 BMI result Body Mass Index 47.2 Const: General: cooperative, healthy appearing and no acute distress (until she moves, then significant distress over R flankwith movement) Limitations: no limitations GI: Inspection: No distended Palpation (GI): Soft to palpation, nontender (no tenderness over mid and low abdomen or LUQ), no guarding and not rigid Results Labs Result diagrams: 12/08/21 03:59 12/08/21 03:59 Labs: Abnormal lab results 12/08/21 12/08/21 Range/Units 03:59 03:59 Hgb 11.5 L (12.0-16.0) g/dl Hct 36.4 L (37.0-47.0) % MCH 26.4 L (27.0-33.0) pg Carbon Dioxide 20 L (22-29) mmol/L Total Protein 6.2 L (6.5-8.0) g/dL Short CBC 12/08/21 Range/Units 03:59 WBC 6.3 (4.8-10.8) X10*3/uL Hgb 11.5 L (12.0-16.0) g/dl Hct 36.4 L (37.0-47.0) % Plt Count 238 (160-400) X10*3/uL BMP 12/08/21 03:59 Sodium 135 Potassium 3.9 Chloride 106 Carbon Dioxide 20 L BUN 12 Creatinine 0.69 Calcium 8.7 Liver Function 12/08/21 Range/Units 03:59 Total Bilirubin 0.6 (0.0-1.0) mg/dL Direct Bilirubin 0.3 (0.0-0.5) mg/dL AST 15 (5-31) U/L ALT 16 (0-31) U/L Alkaline Phosphatase 65 D (39-117) U/L Albumin 3.7 (3.5-5.0) g/dL Urine 12/08/21 12/08/21 Range/Units 06:04 06:04 Urine Color YELLOW Urine Appearance HAZY Urine pH 6.0 (5.0-8.0) Ur Specific [place] 1.020 (1.005-1.025) Urine Protein NEG (NEG-TRACE) MG/DL Urine Glucose (UA) NEG (NEG) MG/DL Urine Test NEGATIVE (NEGATIVE) All other labs normal. Imaging Abdomen CT scan report/results: image reviewed (no evidence for pathology of gastric bypass) Assessment and Plan (1) RUQ abdominal pain: Status: Acute 46 yo patient with 1 month of increaasing RUQ and R flank pain since lap patel. No evidence for any abnormalities of her remote gastric bypass. Labs and VS normal, except for low protein stores. Pt is admitted to general surgery, Dr Garcia's service. Please contact bariatric surgery if the need arises. Discussed with Dr Garcia. (2) Status post laparoscopic cholecystectomy: Status: Acute (3) Morbid obesity due to excess calories: Status: Acute Patient can return to bariatric surgery office for care if she desires. Procedures Date of Service Date of Service: 12/08/21
--- NOTE | 2021-12-08 12:44 | P.HPGS_ITS ---
History of Present Illness History of Present Illness Date of Service: 12/08/21 Chief complaint: Abdominal pain post cholecystectomy Narrative: Colleen Garrido is a 46 year old female presented to the emergency department with progressively increased pain in the right flank extending up into the right shoulder. Pain started approximately 1 week ago and increased in severity since then. She denies fever or chills, nausea or vomiting. She is having difficulty sleeping because of the pain. She presented to the emergency department for further evaluation. Initial laboratories revealed normal WBC and liver function tests. CT of the abdomen and pelvis however revealed a possible hematoma in the liver. Subsequent ultrasound however revealed fluid around the liver possibly of hematoma verses seroma/biloma. A possible drop stone was also noted by ultrasound. Patient is admitted for further observation, antibiotics, and pain control. Review of Systems Review of Systems: Yes all other systems are reviewed and are negative Constitutional: Constitutional: Reports difficulty sleeping and Reports fatigue Cardiovascular: Cardiovascular: Denies chest pain, Denies irregular heart rhythm, Denies palpitations and Denies dyspnea on exertion Respiratory: Respiratory: Denies cough, Reports pain on inspiration and Denies dyspnea on exertion Gastrointestinal: Gastrointestinal: Reports as per HPI, Reports abdominal pain, Denies constipation, Denies nausea and Denies vomiting Genitourinary: Genitourinary: Denies dysuria and Denies urinary urgency Endocrine: Endocrine: Reports fatigue and Denies palpitations PMFSH Past Medical History Medical History Anxiety COVID-19 vaccine administered Depression Family history of adverse response to anesthesia in mother Hiatal hernia History of insomnia History of pernicious anemia Migraines Obesity Personal history of COVID-19 Tachycardia Family History Family History Mother Diabetes Heart attack Father No problems noted. Brother No problems noted. Daughter No problems noted. Surgical History Surgical History History of bunionectomy History of esophagogastroduodenoscopy (EGD) History of tonsillectomy and adenoidectomy Hx of gastric bypass Hx of hernia repair S/P laparoscopic cholecystectomy (11/09/21) S/P panniculectomy Social History Social History Housing: House Are you a primary memory care program director to a significant other at home: No Do you presently have visiting nurse or other home services: No Alcohol intake: unknown Patient Tobacco Use Status: Former Tobacco user Quit Date: many yrs ago Tobacco use type: Cigarette Use of substances other than those prescribed or required for medical reasons: No Advance Directives: No service: No Current occupational status: employed 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 Allergies Allergy/AdvReac Type Severity Reaction Status Date / Time oxycodone [From PERCOCET] Allergy Unknown ITCHY Verified 11/09/21 06:18 Active Medications: Current Medications Hydromorphone HCl (Hydromorphone Hcl 1 Mg/Ml Syringe) 0.5 mg IVPUSH Q4H PRN; Protocol PRN Reason: Pain, Severe (Pain Scale 7-10) Acetaminophen (Ofirmev) 1,000 mg in 100 mls @ 400 mls/hr IV Q6H PENDING SALE TO [facility] Stop: 12/09/21 03:29 Last Infusion: 12/08/21 10:38 Dose: Infused Documented by: Piperacillin Sod/Tazobactam (Sod 3.375 gm/ Sodium Chloride) 50 mls @ 100 mls/hr IV Q6H [facility] TO [facility] Last Infusion: 12/08/21 10:20 Dose: Infused Documented by: Ondansetron HCl (Ondansetron Hcl 4 Mg/2 Ml Vial) 4 mg IVPUSH QID PRN PRN Reason: Nausea Pharmacy Consult (Consult Rx Perform Med Rec) 1 each MISCELLANE ONCE PRN PRN Reason: Consult order Sodium Chloride (0.9 % Sodium Chloride Flush 3 Ml Syringe) 3 ml IVFLUSH QSHIFT PENDING SALE TO [facility] Zolpidem Tartrate (Zolpidem Tartrate 5 Mg Tablet) 5 mg PO BEDTIME PRN PRN Reason: Insomnia Home Medications Medication Instructions Recorded Confirmed Last Taken Type citalopram 40 mg tablet 40 mg PO DAILY 09/20/20 12/08/21 12/07/21 History sumatriptan succinate 100 mg tablet 100 mg PO BEDTIME PRN 11/19/20 12/08/21 12/07/21 History lorazepam 1 mg tablet 1 mg PO BEDTIME 11/22/20 12/08/21 12/07/21 History cholecalciferol (vitamin D3) 50 3,000 unit PO DAILY cap 01/04/21 12/08/21 12/07/21 History mcg (2,000 unit) capsule omeprazole 20 mg capsule,delayed 20 mg PO DAILY PRN 01/04/21 12/08/21 Unknown History release Physical Exam Vital Signs: Vital Signs: Last Vital Signs Temp 97.0 F 12/08/21 10:07 Pulse 71 12/08/21 10:07 Resp 16 12/08/21 10:07 BP 149/86 H 12/08/21 10:07 Pulse Ox 96 12/08/21 10:07 BMI result Body Mass Index 47.2 Const: General: healthy appearing and no acute distress Nutritional Appearance: well nourished Orientation/consciousness: patient oriented x3 Limitations: no limitations HEENT: Head: Yes normocephalic and Yes atraumatic Eyes: Sclerae: sclerae normal EOM: EOMs intact bilaterally GI: Inspection: Yes normal to inspection Palpation (GI): Soft to palpation, Tenderness to palpation present (GI) (Right flank, right back, subcostal), No hepatosplenomegaly present, no hernias and no masses Percussion: Yes normal to percussion Auscultation: normal bowel sounds Rectal Exam - Female: deferred Skin: General skin exam: no ecchymosis and no erythema Neuro: General: patient oriented x3 Extrem: General: No edema Results Results Labs: Short CBC 12/08/21 Range/Units 03:59 WBC 6.3 (4.8-10.8) X10*3/uL Hgb 11.5 L (12.0-16.0) g/dl Hct 36.4 L (37.0-47.0) % Plt Count 238 (160-400) X10*3/uL BMP 12/08/21 03:59 Sodium 135 Potassium 3.9 Chloride 106 Carbon Dioxide 20 L BUN 12 Creatinine 0.69 Calcium 8.7 Liver Function 12/08/21 Range/Units 03:59 Total Bilirubin 0.6 (0.0-1.0) mg/dL Direct Bilirubin 0.3 (0.0-0.5) mg/dL AST 15 (5-31) U/L ALT 16 (0-31) U/L Alkaline Phosphatase 65 D (39-117) U/L Albumin 3.7 (3.5-5.0) g/dL Urine 06/02/22 06/02/22 Range/Units 06:04 06:04 Urine Color YELLOW Urine Appearance HAZY Urine pH 6.0 (5.0-8.0) Ur Specific Mum[place] 1.020 (1.005-1.025) Urine Protein NEG (NEG-TRACE) MG/DL Urine Glucose (UA) NEG (NEG) MG/DL Urine Test NEGATIVE (NEGATIVE) Assessment and Plan (1) Status post laparoscopic cholecystectomy: Status: Acute (2) Right flank pain: Status: Acute Plan 46-year-old female patient presenting with right flank pain following laparoscopic cholecystectomy. CT and ultrasound indicate fluid around the liver which appears to be postoperative fluid. There is also the possibility of a drop stone in the intraperitoneal cavity noted by ultrasound. I discussed the findings in detail with the patient and her family. She will be placed in observation and placed on IV antibiotic, pain control. Will monitor labs as well. Patient expressed understanding and agreed with the plan. Quality Stroke Does the patient have a stroke diagnosis?: No VTE Prior VTE?: No VTE Risk Level:: Surgical - moderate VTE Device Contraindication: N/A - Device Ordered VTE Drug Contraindication: Treatment Not Indicated Procedures Date of Service Date of Service: 12/08/21
[2021-12-08] MEDS: 0.9 % Sodium Chloride Flush 3 ML SYRINGE IVFLUSH ×2 (16:11→22:46)
[2021-12-08] MEDS: HYDROmorphone HCl 1 MG/ML SYRINGE 0.5 MG IVPUSH ×2 (16:33→21:25)
--- NOTE | 2021-12-08 17:13 | HO.PM.IMCN ---
History of Present Illness Data of Consult Service Date: 12/08/21 Requesting physician: Bart Garcia Primary Care Provider: Abiel Verma PA-C HPI Reason for consult: Abdominal pain 46-year-old female patient with past medical history significant for anxiety, migraine, morbid obesity status post gastric bypass surgery, status post recent laparoscopic cholecystectomy on November 09 presented to [facility] due to right flank pain with radiation to right upper abdomen and right shoulder as per patient post surgery she was having progressively worsening pain, that got worse in last 2 days this morning pain was sharp CVA that made her nauseous without associated fever chills, she denies urinary symptoms of dysuria urgency she denies vaginal discharge, patient denies associated URI symptoms no cough no sputum production, denies hematemesis, no melena, tolerating diet, CT abdomen and pelvis without contrast in the emergency room showed mild bulging along inferior right hepatic lobe with an ill-defined region of heterogeneous attenuation measuring 3.6 cm suggestive of peripheral hepatitic hematoma, mild adjacent stranding is noted without additional intra-abdominal collection no acute bowel abnormality was noted, and ultrasound showed small amount of free fluid in the inferior to the right hepatic lobe in region of Morison's pouch there is also 0.9 cm echogenic structure possibly representing a dropped gallstone, patient urinalysis is normal, no leukocytosis, normal LFTs and lipase, patient admitted under surgical service. Review of Systems Review of Systems: General no headache, no dizziness, no fever chills. CVS no chest pain, no palpitation. Respiratory no cough no sob. Gastrointestinal no nausea no vomiting Skin no rash no urinary urgency, no frequency, no cervical discharge Yes all other systems are reviewed and are negative [facility] Medical History Anxiety COVID-19 vaccine administered Depression Family history of adverse response to anesthesia in mother Hiatal hernia History of insomnia History of pernicious anemia Migraines Obesity Personal history of COVID-19 Tachycardia Family History Mother Diabetes Heart attack Father No problems noted. Brother No problems noted. Daughter No problems noted. Surgical History History of bunionectomy History of esophagogastroduodenoscopy (EGD) History of tonsillectomy and adenoidectomy Hx of gastric bypass Hx of hernia repair S/P laparoscopic cholecystectomy (11/09/21) S/P panniculectomy Social History Housing: House Are you a primary health careers instructor to a significant other at home: No Do you presently have visiting nurse or other home services: No Alcohol intake: unknown Patient Tobacco Use Status: Former Tobacco user Quit Date: 2016 Tobacco use type: Cigarette Second Hand Smoke Exposure: No service: No Current occupational status: employed 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 Allergies Allergy/AdvReac Type Severity Reaction Status Date / Time oxycodone [From PERCOCET] Allergy Unknown ITCHY Verified 11/09/21 06:18 Active Medications: Current Medications Bupropion HCl (Bupropion Hcl Xl 150 Mg Tab.Er.24h) 150 mg PO DAILY LEILA Escitalopram Oxalate (Escitalopram Oxalate 20 Mg Tablet) 20 mg PO DAILY LEILA Hydromorphone HCl (Hydromorphone Hcl 1 Mg/Ml Syringe) 0.5 mg IVPUSH Q4H PRN; Protocol PRN Reason: Pain, Severe (Pain Scale 7-10) Last Admin: 12/08/21 16:33 Dose: 0.5 mg Documented by: Hydromorphone HCl (Hydromorphone Hcl 2 Mg Tablet) 2 mg PO Q4H PRN PRN Reason: Pain, Moderate (Pain Scale 4-6 Acetaminophen (Ofirmev) 1,000 mg in 100 mls @ 400 mls/hr IV Q6H [facility] Stop: 12/09/21 03:29 Last Infusion: 12/08/21 16:10 Dose: Infused Documented by: Piperacillin Sod/Tazobactam (Sod 3.375 gm/ Sodium Chloride) 50 mls @ 100 mls/hr IV Q6H [facility] Last Admin: 12/08/21 16:40 Dose: 100 mls/hr Documented by: Lorazepam (Lorazepam 1 Mg Tablet) 1 mg PO BEDTIME LEILA Omeprazole (Omeprazole 20 Mg Capsule.Dr) 20 mg PO DAILY PRN PRN Reason: Gastric Reflux Ondansetron HCl (Ondansetron Hcl 4 Mg/2 Ml Vial) 4 mg IVPUSH QID PRN PRN Reason: Nausea Pharmacy Consult (Consult Rx Perform Med Rec) 1 each MISCELLANE ONCE PRN PRN Reason: Consult order Sodium Chloride (0.9 % Sodium Chloride Flush 3 Ml Syringe) 3 ml IVFLUSH QSHIFT [facility] Last Admin: 12/08/21 16:11 Dose: 3 ml Documented by: Sumatriptan Succinate (Sumatriptan Succinate 100 Mg Tablet) 100 mg PO BEDTIME PRN PRN Reason: Migraine Headache Topiramate (Topiramate 25 Mg Tablet) 50 mg PO BEDTIME [facility]IL[facility] Vitamin D (Cholecalciferol (Vitamin D3) 25 Mcg Tablet) 25 mcg PO DAILY [facility] Zolpidem Tartrate (Zolpidem Tartrate 5 Mg Tablet) 5 mg PO BEDTIME PRN PRN Reason: Insomnia Home Medications Medication Instructions Recorded Confirmed Last Taken Type citalopram 40 mg tablet 40 mg PO DAILY 09/20/20 12/08/21 12/07/21 History sumatriptan succinate 100 mg tablet 100 mg PO BEDTIME PRN 11/19/20 12/08/21 12/07/21 History lorazepam 1 mg tablet 1 mg PO BEDTIME 11/22/20 12/08/21 12/07/21 History cholecalciferol (vitamin D3) 50 3,000 unit PO DAILY cap 01/04/21 12/08/21 12/07/21 History mcg (2,000 unit) capsule omeprazole 20 mg capsule,delayed 20 mg PO DAILY PRN 01/04/21 12/08/21 Unknown History release Physical Exam Vital Signs and Narrative: Vital Signs: Last Vital Signs Temp 97.0 F 12/08/21 10:07 Pulse 71 12/08/21 13:00 Resp 16 12/08/21 17:02 BP 121/73 12/08/21 13:00 Pulse Ox 96 12/08/21 13:00 BMI result Body Mass Index 47.2 Const: Other: General patient resting comfortably in no acute distress. HEENT pupils equal round reactive to light and accommodation Neck no JVD. CVS regular rate rhythm, Respiratory lungs clear to auscultation, no respiratory distress, no wheeze, no rhonchi. Gastrointestinal abdomen soft, obese, nontender, bowel sounds audible, no guarding , no rigidity. Right flank no tenderness to palpation Extremities no edema. Neuro nonfocal Skin no rash Psych appropriate affect Results Labs CBC and Chem 7: 12/09/21 05:36 12/09/21 05:36 Labs: Laboratory Results - last 24 hr 12/08/21 12/08/21 12/08/21 03:59 03:59 06:04 MCV 83.7 MCH 26.4 L MCHC 31.6 RDW 13.6 Plt Count 238 MPV 9.6 Immature Gran % (Auto) 0.2 Neut % (Auto) 67.2 Lymph % (Auto) 23.2 Davidson % (Auto) 7.3 Eos % (Auto) 1.9 Baso % (Auto) 0.2 Lymph # (Auto) 1.5 Davidson # (Auto) 0.5 Eos # (Auto) 0.1 Baso # (Auto) 0.0 Abs Immat Gran (auto) 0.01 Absolute Neuts (auto) 4.2 Absolute Nucleated RBC 0.000 Nucleated RBC % (auto) 0.0 Anion Gap 13 Estim Creat Clear Calc 134.4 Estimated GFR > 60 Random Glucose 103 Calcium 8.7 Total Bilirubin 0.6 Direct Bilirubin 0.3 AST 15 ALT 16 Alkaline Phosphatase 65 D Total Protein 6.2 L Albumin 3.7 Lipase 20 Urine Color YELLOW Urine Appearance HAZY Urine pH 6.0 Ur Specific Bowman 1.020 Urine Protein NEG Urine Glucose (UA) NEG Urine Ketones NEG Urine Blood NEG Urine Nitrite NEG Ur Leukocyte Esterase NEG Urine Test COVID-19 ([place]) COVID-19 [employer] Com 12/08/21 12/08/21 06:04 09:01 MCV MCH MCHC RDW Plt Count MPV Immature Gran % (Auto) Neut % (Auto) Lymph % (Auto) Davidson % (Auto) Eos % (Auto) Baso % (Auto) Lymph # (Auto) Davidson # (Auto) Eos # (Auto) Baso # (Auto) Abs Immat Gran (auto) Absolute Neuts (auto) Absolute Nucleated RBC Nucleated RBC % (auto) Anion Gap Estim Creat Clear Calc Estimated GFR Random Glucose Calcium Total Bilirubin Direct Bilirubin AST ALT Alkaline Phosphatase Total Protein Albumin Lipase Urine Color Urine Appearance Urine pH Ur Specific Bowman Urine Protein Urine Glucose (UA) Urine Ketones Urine Blood Urine Nitrite Ur Leukocyte Esterase Urine Test NEGATIVE COVID-19 ([place]) Negative COVID-19 Clin Com See Note Imaging Radiologist's Impressions: Impressions Abdomen/Pelvis CT 12/08/21 06:25 IMPRESSION: 1. Mild bulging along the contour of the inferior right hepatic lobe with an ill-defined region of heterogeneous attenuation measuring approximately 3.6 cm. In the setting of relatively recent cholecystectomy, appearance is suggestive of a peripheral hepatic hematoma. Evaluation with ultrasound may be helpful to assess for the extent of this abnormality. Underlying mass would be difficult to entirely exclude, though is considered less likely given no abnormality was seen in this region on ultrasound of 08/08/2021. Mild adjacent stranding is noted, without additional intra-abdominal collection. 2. No acute bowel abnormality. Status post gastric bypass surgery. 3. Small hiatal hernia. This was discussed with Dr. Martin on 12/08/2021 6:47 AM. Abdomen Ultrasound 12/08/21 07:32 IMPRESSION: A small amount of free fluid is detected in inferior to the right hepatic lobe, in region of Morison's pouch. In this same area, there is 0.9 cm echogenic structure, possibly representing a dropped gallstone. Assessment and Plan (1) Right flank pain: Status: Acute (2) Status post laparoscopic cholecystectomy: Status: Acute (3) Hx of gastric bypass: Status: Acute (4) BMI 45.0-49.9, adult: Status: Acute (5) Morbid obesity due to excess calories: Status: Acute Plan 46-year-old female patient presenting with right flank pain following laparoscopic cholecystectomy.? CT and ultrasound indicate fluid around the liver which appears to be postoperative fluid.? There is also the possibility of a drop stone in the intraperitoneal cavity noted by ultrasound. Right flank pain with radiation to right shoulder and right upper quadrant gradually progressing since laparoscopic cholecystectomy 11/09 Patient afebrile, normal WBC Differential diagnosis inferior right hepatic lobe peripheral hepatic hematoma causing inflammation /irritation/drop stones/no evidence of pancreatitis, no hepatitis, no renal stones, no pelvic infection symptoms No heartburn, no acidity no evidence of gastritis or peptic ulcer disease, no hematemesis, no melena Normal LFTs, normal lipase, normal urinalysis Continue analgesics, follow clinical course, repeat imaging study as per General surgery Tolerating diet Morbid obesity history of gastric bypass, will recommend low-calorie diet. Anxiety no acute exacerbation continue home medication. DVT prophylaxis? compression therapy.
[2021-12-08] MEDS: buPROPion HCl XL 150 MG TAB.ER.24H PO (18:40)
[2021-12-08] MEDS: LORazepam 1 MG TABLET PO (20:55)
[2021-12-08] MEDS: Topiramate 25 MG TABLET 50 MG PO (20:55)
[2021-12-09 03:53] VITALS: BP 157/90; PULSE 75; RESP 17; TEMP 36.4; O2SAT 95
[2021-12-09] MEDS: Piperacillin Sodium/Tazobactam 3.375 GM in 0.9 % Sodium Chloride 50 ML IV ×2 (03:56→09:13)
[2021-12-09] MEDS: HYDROmorphone HCl 1 MG/ML SYRINGE 0.5 MG IVPUSH ×2 (04:03→10:56)
[2021-12-09 06:17] LABS: MANUAL DIFF FLAG NO
[2021-12-09 06:25] LABS: Basophils Percent Auto 0.3 % (0-2); Eosinophils Absolute Auto 0.1 X10*3/uL (0.0-0.4); Hematocrit 34.9 % (37.0-47.0); Hemoglobin 10.9 g/dl (12.0-16.0); Imm Gran Abs Auto 0.03 X10*3/uL (0.00-0.03); Imm Gran Pct Auto 0.5 % (0.0-0.4); Lymphocytes Absolute Auto 0.9 X10*3/uL (1.2-4.9); Lymphocytes Percent Auto 15.4 % (20-40); Mean Corpuscular HGB Conc 31.2 g/dl (31.0-35.0); Mean Corpuscular Hemoglobin 26.5 pg (27.0-33.0); Mean Corpuscular Volume 84.9 fL (80.0-98.0); Mean Platelet Volume 10.3 fL (9.4-12.3); Monocytes Absolute Auto 0.3 X10*3/uL (0.1-1.2); Monocytes Percent Auto 5.8 % (2-11); Neutrophils Absolute Auto 4.5 x10*3/uL (2.0-8.3); Platelet Count 229 X10*3/uL (160-400); Red Blood Count 4.11 X10*6/uL (4.20-5.50); White Blood Count 5.9 X10*3/uL (4.8-10.8)
[2021-12-09 06:51] LABS: Anion Gap 11 (12-20); Blood Urea Nitrogen 13 mg/dL (9-16); Calcium 8.8 mg/dL (8.4-10.2); Carbon Dioxide 22 mmol/L (22-29); Chloride 106 mmol/L (96-108); Creatinine Clr Calc Pharmacy 132.5; Estimated Glomerular Filt Rate > 60; Glucose Random 97 mg/dL (60-115); Potassium 4.1 mmol/L (3.3-5.1); Sodium 135 mmol/L (135-145)
[2021-12-09 08:00] VITALS: BP 114/75; PULSE 63; RESP 18; TEMP 36.6; O2SAT 95
[2021-12-09] MEDS: buPROPion HCl XL 150 MG TAB.ER.24H PO (09:15)
[2021-12-09] MEDS: Escitalopram Oxalate 20 MG TABLET PO (09:15)
[2021-12-09] MEDS: Cholecalciferol (Vitamin D3) 25 MCG TABLET PO (09:15)
[2021-12-09] MEDS: 0.9 % Sodium Chloride Flush 3 ML SYRINGE IVFLUSH (09:16)
--- NOTE | 2021-12-09 09:32 | MHC.CM.PN ---
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 transportyation family health care proxy her requested copy to be brought in
[2021-12-09] MEDS: iohexoL 300 MG/ML 100 ML INFUS..BTL IV (10:48)
--- NOTE | 2021-12-09 11:36 | HO.PM.IMPN ---
Subjective Subjective Date of Service: 12/09/21 Interval History: No change in abdominal pain, complaining of persistent right flank pain with radiation to right upper quadrant and right shoulder, denies fever chills, no lightheadedness, no dizziness, no acute issues overnight. Review of Systems [employer] no headache, no dizziness CVS no chest pain, no palpatation GI no nausea no vomiting no epigastric pain no diarrhea Review of Systems: Yes all other systems are reviewed and are negative Physical Exam Vital Signs: Vital Signs: Last Vital Signs Temp 98 F 12/09/21 08:00 Pulse 63 12/09/21 08:00 Resp 18 12/09/21 08:00 BP 114/75 12/09/21 08:00 Pulse Ox 95 12/09/21 08:00 BMI result Body Mass Index 47.2 Const: Other: General patient resting comfortably in no acute distress.? Neck no JVD. CVS? regular rate rhythm, Respiratory lungs clear to auscultation, no respiratory distress, no wheeze, no rhonchi. Gastrointestinal abdomen soft, obese, nontender, bowel sounds audible, no guarding , no rigidity. Right flank discomfort with palpation Extremities no edema. Neuro nonfocal Skin no rash Psych appropriate affect Objective Data Active Medications Bupropion HCl (Bupropion Hcl Xl 150 Mg Tab.Er.24h) 150 mg PO DAILY [facility] Last Admin: 12/09/21 09:15 Dose: 150 mg Documented by: DAYLIN Escitalopram Oxalate (Escitalopram Oxalate 20 Mg Tablet) 20 mg PO DAILY [facility] Last Admin: 12/09/21 09:15 Dose: 20 mg Documented by: DAYLIN Hydromorphone HCl (Hydromorphone Hcl 1 Mg/Ml Syringe) 0.5 mg IVPUSH Q4H PRN; Protocol PRN Reason: Pain, Severe (Pain Scale 7-10) Last Admin: 12/09/21 10:56 Dose: 0.5 mg Documented by: GUILHERME Hydromorphone HCl (Hydromorphone Hcl 2 Mg Tablet) 2 mg PO Q4H PRN PRN Reason: Pain, Moderate (Pain Scale 4-6 Piperacillin Sod/Tazobactam (Sod 3.375 gm/ Sodium Chloride) 50 mls @ 100 mls/hr IV Q6H [facility] Last Infusion: 12/09/21 09:43 Dose: 0 mls/hr Documented by: GUILHERME Lorazepam (Lorazepam 1 Mg Tablet) 1 mg PO BEDTIME [facility] Last Admin: 12/08/21 20:55 Dose: 1 mg Documented by: GOPAL Omeprazole (Omeprazole 20 Mg Capsule.Dr) 20 mg PO DAILY PRN PRN Reason: Gastric Reflux Ondansetron HCl (Ondansetron Hcl 4 Mg/2 Ml Vial) 4 mg IVPUSH QID PRN PRN Reason: Nausea Pharmacy Consult (Consult Rx Perform Med Rec) 1 each MISCELLANE ONCE PRN PRN Reason: Consult order Sodium Chloride (0.9 % Sodium Chloride Flush 3 Ml Syringe) 3 ml IVFLUSH QSHIFT [facility] Last Admin: 12/09/21 09:16 Dose: 3 ml Documented by: DAYLIN Sumatriptan Succinate (Sumatriptan Succinate 100 Mg Tablet) 100 mg PO BEDTIME PRN PRN Reason: Migraine Headache Topiramate (Topiramate 25 Mg Tablet) 50 mg PO BEDTIME [facility] Last Admin: 12/08/21 20:55 Dose: 50 mg Documented by: GOPAL Vitamin D (Cholecalciferol (Vitamin D3) 25 Mcg Tablet) 25 mcg PO DAILY [facility] Last Admin: 12/09/21 09:15 Dose: 25 mcg Documented by: DAYLIN Zolpidem Tartrate (Zolpidem Tartrate 5 Mg Tablet) 5 mg PO BEDTIME PRN PRN Reason: Insomnia Labs CBC & Chem 7: 12/09/21 05:36 12/09/21 05:36 Labs: Laboratory Results - last 24 hr 12/09/21 12/09/21 05:36 05:36 MCV 84.9 MCH 26.5 L MCHC 31.2 RDW 14.0 Plt Count 229 MPV 10.3 Immature Gran % (Auto) 0.5 H Neut % (Auto) 76.0 H Lymph % (Auto) 15.4 L [place] % (Auto) 5.8 Eos % (Auto) 2.0 Baso % (Auto) 0.3 Lymph # (Auto) 0.9 L [place] # (Auto) 0.3 Eos # (Auto) 0.1 Baso # (Auto) 0.0 Abs Immat Gran (auto) 0.03 Absolute Neuts (auto) 4.5 Absolute Nucleated RBC 0.000 Nucleated RBC % (auto) 0.0 Anion Gap 11 L Estim Creat Clear Calc 132.5 Estimated GFR > 60 Random Glucose 97 Calcium 8.8 Assessment and Plan (1) Right flank pain: Status: Acute (2) Status post laparoscopic cholecystectomy: Status: Acute (3) Hx of gastric bypass: Status: Acute Plan 46-year-old female patient presenting with right flank pain following laparoscopic cholecystectomy.? CT and ultrasound indicate fluid around the liver which appears to be postoperative fluid.? There is also the possibility of a drop stone in the intraperitoneal cavity noted by ultrasound. Right flank pain with radiation to right shoulder and right upper quadrant gradually progressing since laparoscopic cholecystectomy 5/4 Persistent abdominal pain unchanged, tolerating diet no nausea no vomiting no fevers no chills Patient afebrile, normal WBC, normal LFTs, normal lipase, normal UA No evidence of nephrolithiasis/peptic ulcer disease/PID CT abdomen and pelvis with contrast redemonstrated nonspecific exophytic area at the inferior aspect of the right lobe of the liver possible hematoma unchanged from yesterday, no other bowel pathology Likely hematoma with irritation of the hepatic capsule question outpatient follow-up versus MRI abdomen Continue analgesics, further treatment plan as per General surgery Morbid obesity history of gastric bypass, will recommend low-calorie diet. Anxiety no acute exacerbation continue home medication. DVT prophylaxis? compression therapy. Quality Stroke Does the patient have a stroke diagnosis?: No VTE Prior VTE?: No VTE Risk Level:: Surgical - moderate VTE Device Contraindication: N/A - Device Ordered VTE Drug Contraindication: Treatment Not Indicated
--- NOTE | 2021-12-14 13:10 | PM.DS ---
DS: Providers Provider Date of Service: 12/09/21 Date of admission: 12/08/21 09:15 Date of discharge: 12/09/21 Primary care physician: Abiel Verma PA-C Admitting clinician: Bart Garcia Consults: 12/08/21 16:38 Consult to Hospitalist Routine Consulting Provider: Hospitalist Reason For Exam: Flank/pleuritic pain following cholecystectomy Discharging clinician: Bart Garcia DS: Diagnosis Discharge Diagnosis (1) Atelectasis, right: Status: Acute (2) Right flank pain: Status: Acute (3) Status post laparoscopic cholecystectomy: Status: Acute (4) Hx of gastric bypass: Status: Acute DS: Summary Hospital Course Hospital Course: Colleen Garrido is a 46 year old female presented to the emergency department with progressively increased pain in the right flank extending up into the right shoulder.? Pain started approximately 1 week ago and increased in severity since then.? She denies fever or chills, nausea or vomiting.? She is having difficulty sleeping because of the pain.? She presented to the emergency department for further evaluation.? Initial laboratories revealed normal WBC and liver function tests.? CT of the abdomen and pelvis however revealed a possible hematoma in the liver.? Subsequent ultrasound however revealed fluid around the liver possibly of hematoma verses seroma/biloma.? A possible drop stone was also noted by ultrasound.? Patient is admitted for further observation, antibiotics, and pain control. Patient reports that proximally 2 weeks following her laparoscopic cholecystectomy, she developed COVID with persistent coughing noted. She subsequently developed increased left flank pain as noted above. Patient was admitted to the surgical service and hospitalist consultation requested. On the 2nd hospital day she continued to have the right flank pain essentially unchanged. The pain seems to increase with deep breathing. Laboratories remained normal with normal H&H and WBC. A repeat contrasted CT was obtained To evaluate for liver hematoma. Note was made of right lower lobe atelectasis with a effusion which corresponds to the area of right flank tenderness. And patient was started on incentive spirometry and encouraged to perform this Q1 hour while awake times 10. She reported having difficulty taking deep breaths since her COVID infection. The patient was tolerating regular diet without nausea or vomiting feel comfortable enough to go home. She agree to continue the incentive spirometry at home. She will follow up in the office in approximately 1 week. Time spent discussing smoking cessation with patient: 3 to 10 minutes Status at Discharge Functional status at discharge: independent ambulation Overall status at discharge: patient is not back to baseline Time Spent with Patient Time attestation: Total time spent providing and/or coordinating discharge services: Discharge coordination time: Less than 30 minutes Quality: Safe Use of Opioids Does Pt have an Active Cancer Diagnosis on the Problem List?: No Quality: Stroke Does the patient have a stroke diagnosis?: No Physical Exam Vital Signs: Vital Signs: Last Vital Signs Temp 98 F 12/09/21 08:00 Pulse 63 12/09/21 08:00 Resp 18 12/09/21 08:00 BP 114/75 12/09/21 08:00 Pulse Ox 95 12/09/21 08:00 O2 Del Method 12/09/21 08:00 BMI result Body Mass Index 47.2 Const: General: no acute distress and well developed Nutritional Appearance: well nourished Orientation/consciousness: patient oriented x3 Limitations: no limitations HEENT: Head: Yes normocephalic and Yes atraumatic Ears: hearing grossly normal bilaterally Resp: Other: Effort & Inspection: normal respiratory effort, no audible wheezes, no cough and no respiratory distress GI: Other: right flank tenderness as noted above Palpation (GI): Soft to palpation, nontender, no guarding and not rigid Percussion: Yes normal to percussion Auscultation: normal bowel sounds Neuro: General: patient oriented x3 Extrem: General: Yes normal to inspection and No edema DS: Data Imaging CT scan - abdomen: Radiologist's impression: ITS Impressions Abdomen/Pelvis CT 12/08/21 06:25 IMPRESSION: 1. Mild bulging along the contour of the inferior right hepatic lobe with an ill-defined region of heterogeneous attenuation measuring approximately 3.6 cm. In the setting of relatively recent cholecystectomy, appearance is suggestive of a peripheral hepatic hematoma. Evaluation with ultrasound may be helpful to assess for the extent of this abnormality. Underlying mass would be difficult to entirely exclude, though is considered less likely given no abnormality was seen in this region on ultrasound of 08/08/2021. Mild adjacent stranding is noted, without additional intra-abdominal collection. 2. No acute bowel abnormality. Status post gastric bypass surgery. 3. Small hiatal hernia. This was discussed with Dr. Martin on 12/08/2021 6:47 AM. Abdomen Ultrasound 12/08/21 07:32 IMPRESSION: A small amount of free fluid is detected in inferior to the right hepatic lobe, in region of Morison's pouch. In this same area, there is 0.9 cm echogenic structure, possibly representing a dropped gallstone. Abdomen/Pelvis CT 12/09/21 10:58 IMPRESSION: Redemonstration of the exophytic area at the inferior aspect of the right lobe of the liver. This is nonspecific. Hematoma is possible. This is unchanged in size from prior. This is not visualized on the previous ultrasound. As such, consider follow-up CT to determine resolution or stability. Nonemergent MRI could also be performed if clinically indicated. No additional acute finding. No hydronephrosis or nephrolithiasis. The bowel is unremarkable. Fleischner guidelines were followed. Discharge Plan Discharge Patient Disposition: Home, Self-Care Referrals: Abiel Verma PA-C [Primary Care Provider] - 1 Week Discharge Medications: New hydrocodone-acetaminophen 5-325 mg tablet 1 tab PO Q6H PRN (Reason: pain) Qty: 14 0RF Continued bupropion HCl 150 mg tablet extended release 24 hr 150 mg PO QAM 90 Days Qty: 90 1RF topiramate 50 mg tablet 50 mg PO BEDTIME 90 Days Qty: 90 1RF citalopram 40 mg tablet 40 mg PO DAILY lorazepam 1 mg tablet 1 mg PO BEDTIME sumatriptan succinate 100 mg tablet 100 mg PO BEDTIME PRN (Reason: Migraine Headache) cholecalciferol (vitamin D3) 50 mcg (2,000 unit) capsule 3,000 unit PO DAILY omeprazole 20 mg capsule,delayed release(DR/EC) 20 mg PO DAILY PRN (Reason: Gastric Reflux) Discharge Orders: Discharge Order (Routine); Ordered 12/09/21 Ordered By: Bart Garcia Diet: advance to usual diet Activity on Discharge: As tolerated Stand Alone Forms: Patient Portal Discharge page Care Plan Goals: Return to normal activity and diet Health Concerns: Pain in the right flank Plan of Treatment: Incentive spirometry x 10 every hour Assessment: Atelectasis, effusion right lower lobe Patient Instructions: How to Use an Incentive Spirometer (DC) Discharge Date/Time: 12/09/21 13:04
== END 2021-12-09 13:04 | disposition home or self-care (01) ==
LOC: HO.ED 09:11 → HO.EDOVER 12:21 → HO.S3 19:36
PROVIDERS: Emergency Medicine; Admitting Provider Surgery; Emergency Provider Emergency Medicine; PCP Physician Assistant; Visit Provider Surgery
DX: R10.11 Right upper quadrant pain (principal); R10.9 Unspecified abdominal pain; J98.11 Atelectasis; E66.01 Morbid (severe) obesity due to excess calories; G43.909 Migraine, unspecified, not intractable, without status migrainosus; F41.8 Other specified anxiety disorders; Z87.891 Personal history of nicotine dependence; Z20.822 Contact with and (suspected) exposure to COVID-19; Z68.42 Body mass index [BMI] 45.0-49.9, adult; Z98.84 Bariatric surgery status; Z90.49 Acquired absence of other specified parts of digestive tract; Z97.5 Presence of (intrauterine) contraceptive device; Z88.6 Allergy status to analgesic agent; Z79.899 Other long term (current) drug therapy
CPT/HCPCS: 36415; 74176; 74177; 76705; 80048; 80053; 81003; 81025; 82248; 83690; 85025; 87635; 96365; 96375; 99218; 99285; J0131; J1170; J2543; Q9967

== ENCOUNTER 2021-12-23 09:02 | Outpatient (REF) | payer BC, SELFPAY ==
--- NOTE | ~2021-12-23 | XR_ITS ---
EXAMINATION: XR CHEST CLINICAL INFORMATION: Low back pain COMPARISON: Previous chest x-rays most recent November 2020 TECHNIQUE: 2 views of the chest were obtained. FINDINGS: The cardiac and mediastinal contours are stable. There is mild subsegmental atelectasis left lung base. The lungs are otherwise clear. No pleural effusion or pneumothorax. The structures are unremarkable. XR/XR chest 2V IMPRESSION: Mild subsegmental atelectasis at the left lung base.
== END 2021-12-23 09:03 | disposition home or self-care (01) ==
LOC: HO.XRAY 09:02
PROVIDERS: PCP Physician Assistant; Visit Provider Surgery
DX: J98.11 Atelectasis (principal); M54.50 Low back pain, unspecified
CPT/HCPCS: 71046

== ENCOUNTER → 2022-01-26 11:00 | Outpatient (BNVA) | payer BC, SELFPAY | PROVIDERS: PCP Physician Assistant; Referring Provider Physician Assistant; Visit Provider Counselor Mental Health | DX: F41.1 Generalized anxiety disorder (principal); E66.9 Obesity, unspecified | CPT/HCPCS: 90791 ==

== ENCOUNTER 2022-02-09 06:09 | Outpatient (REF) | payer BC, SELFPAY ==
[2022-02-09 06:26] LABS: MANUAL DIFF FLAG NO
[2022-02-09 07:32] LABS: Basophils Percent Auto 0.4 % (0-2); Eosinophils Absolute Auto 0.1 X10*3/uL (0.0-0.4); Eosinophils Percent Auto 2.1 % (0-4); Hematocrit 37.3 % (37.0-47.0); Hemoglobin 11.6 g/dl (12.0-16.0); Imm Gran Abs Auto 0.03 X10*3/uL (0.00-0.03); Imm Gran Pct Auto 0.5 % (0.0-0.4); Lymphocytes Percent Auto 17.2 % (20-40); Mean Corpuscular HGB Conc 31.1 g/dl (31.0-35.0); Mean Corpuscular Hemoglobin 26.2 pg (27.0-33.0); Mean Corpuscular Volume 84.4 fL (80.0-98.0); Mean Platelet Volume 10.6 fL (9.4-12.3); Monocytes Absolute Auto 0.3 X10*3/uL (0.1-1.2); Monocytes Percent Auto 5.4 % (2-11); Neutrophils Absolute Auto 4.2 x10*3/uL (2.0-8.3); Neutrophils Percent Auto 74.4 % (45-73); Platelet Count 247 X10*3/uL (160-400); Red Blood Count 4.42 X10*6/uL (4.20-5.50); White Blood Count 5.6 X10*3/uL (4.8-10.8)
[2022-02-09 07:42] LABS: Estimated Average Glucose 100 mg/dL; Hemoglobin A1c % 5.1 %
[2022-02-09 07:52] LABS: Alanine Aminotransferase 13 U/L (0-31); Alkaline Phosphatase 57 U/L (39-117); Anion Gap 15 (12-20); Aspartate Amino Transferase 19 U/L (5-31); Bilirubin Total 0.7 mg/dL (0.0-1.0); Blood Urea Nitrogen 11 mg/dL (9-16); C Reactive Protein 1.88 mg/dL (< or = 0.50); Calcium 8.8 mg/dL (8.4-10.2); Carbon Dioxide 21 mmol/L (22-29); Chloride 107 mmol/L (96-108); Cholesterol 187 mg/dL; Estimated Glomerular Filt Rate > 60; Glucose Random 110 mg/dL (60-115); HDL Cholesterol 79 mg/dL; Iron 57 mcg/dL (30-160); LDL Cholesterol Calculated 84 mg/dl; Percent Iron Saturation 13 % (15-50); Potassium 4.1 mmol/L (3.3-5.1); Sodium 139 mmol/L (135-145); Total Iron Binding Capacity 437 mcg/dL (228-428); Total Protein 6.5 g/dL (6.5-8.0); Triglycerides 123 mg/dL; Unsaturated Iron Binding 380 ug/dL
[2022-02-09 08:17] LABS: Ferritin 10 ng/mL (10-250); Insulin 11 uU/mL (2-29); TSH reflex Free T4 3.08 uIU/mL (0.32-4.0); Vitamin D 25-OH Total 39.4 ng/mL (>30)
[2022-02-09 08:27] LABS: Folate 9.6 ng/mL (> or = 4.0); Vitamin B12 871 pg/mL (200-900)
[2022-02-13 17:32] LABS: Calcium (PTHI) 8.9 mg/dL (8.6-10.2); PTHI 112 pg/mL (16-77)
[2022-02-14 06:07] LABS: Zinc 58 mcg/dL (60-130)
[2022-02-15 10:52] LABS: Vitamin A 40 mcg/dL (38-98)
[2022-02-16 06:22] LABS: Vitamin B1 11 nmol/L (8-30)
== END 2022-02-09 06:10 | disposition home or self-care (01) ==
LOC: HO.LAB 06:09
PROVIDERS: PCP Physician Assistant; Visit Provider Physician Assistant
DX: Z01.818 Encounter for other preprocedural examination (principal); E66.01 Morbid (severe) obesity due to excess calories; Z98.84 Bariatric surgery status
CPT/HCPCS: 36415; 80053; 80061; 82306; 82607; 82728; 82746; 83036; 83525; 83540; 83970; 84425; 84443; 84590; 84630; 85025; 86140

== ENCOUNTER → 2022-02-14 14:36 | Outpatient (BNVA) | payer BC, SELFPAY | PROVIDERS: PCP Physician Assistant; Referring Provider Physician Assistant; Visit Provider Dietitian, Registered | DX: Z98.84 Bariatric surgery status (principal) | CPT/HCPCS: 97803 ==

== ENCOUNTER 2022-02-27 17:13 | Outpatient (REF) | payer BC, SELFPAY ==
[2022-02-28 13:19] LABS: H Pylori Breath Test Negative (Negative)
== END 2022-02-27 17:14 | disposition home or self-care (01) ==
LOC: HO.LNP 17:13
PROVIDERS: Visit Provider Physician Assistant
DX: Z01.818 Encounter for other preprocedural examination (principal); E66.01 Morbid (severe) obesity due to excess calories
CPT/HCPCS: 83013

== ENCOUNTER 2022-03-07 09:34 | Outpatient (REF) | payer BC, SELFPAY ==
--- NOTE | ~2022-03-07 | FL_ITS ---
EXAMINATION: FL UPPER GI SERIES CLINICAL INFORMATION: Encounter for other preprocedural examination COMPARISON: CT 12/09/2021 TECHNIQUE: Realtime fluoroscopy with spot images were obtained as the patient swallowed thick barium by cup. FINDINGS: The patient initiated swallowing normally. There is mildly ineffective primary peristalsis but no tertiary contractions were seen. No fixed esophageal mucosal abnormality to suggest stricture or mass. There is a hiatal hernia with the majority of the gastric pouch extending above the diaphragm, seen on recent CT scan as well. The pouch is normal in size. There is prompt emptying of the gastric pouch via a side to side gastrojejunostomy. There is prompt runoff to the distal small bowel. No dilated loops of small bowel to suggest obstruction. No stricture seen. FLUOROSCOPY TIME: 1.9 minutes DOSE AREA PRODUCT: 51.163 Gy-cm2 (tyson-centimeter squared) 24 images. FL/FL upper GI series IMPRESSION: Hiatal hernia with the majority of the normal size gastric pouch seen above the diaphragm. Prompt runoff via the gastrojejunostomy. Mildly ineffective primary esophageal peristalsis but no evidence of stricture or mass.
--- NOTE | ~2022-03-07 | XR_ITS ---
EXAMINATION: XR CHEST CLINICAL INFORMATION: Atelectasis COMPARISON: December 23, 2021 and November 24, 2020 TECHNIQUE: 2 views of the chest were obtained. FINDINGS: No significant abnormality is noted involving the heart, lungs, mediastinum, bony thorax or soft tissues. XR/XR chest 2V IMPRESSION: No acute disease.
--- NOTE | ~2022-03-07 | US_ITS ---
EXAMINATION: US COMPLETE ABDOMEN WITH LIVER ELASTOGRAPHY CLINICAL INFORMATION: Obesity COMPARISON: Previous CT of the abdomen and pelvis most recent December 2021 and abdominal ultrasound most recent December 2021 TECHNIQUE: Real-time imaging of the abdominal viscera. Noninvasive ultrasound liver fibrosis assessment is performed using Naresh ElastPQ point quantification shear wave elastography (2D-SWE) with a C5-2 MHz transducer. Multiple elastography samples are obtained. FINDINGS: PANCREAS: Not well visualized due to bowel gas ABDOMINAL AORTA: The proximal abdominal aorta is not well visualized due to bowel gas. The middle and distal aortic segments are normal in caliber. INFERIOR VENA CAVA: Not well visualized due to bowel gas. LIVER: The liver echotexture is slightly increased. The liver size and contour is normal. No focal lesion or intrahepatic biliary duct dilatation. The right lobe measures 13 cm in length. The left lobe measures 9 cm in length. Portal flow is normal/hepatopedal Shear wave liver elastography median stiffness is 1.3 m/s (reference: normal median stiffness is 1.3 m/s or less). IQR/median stiffness to assess sampling precision is 0.08 (reference: good quality data set is IQR/median stiffness of 0.15 or less). GALLBLADDER: Surgically removed. COMMON BILE DUCT: Not seen. RIGHT KIDNEY: Normal. No hydronephrosis. No renal calculi or focal parenchymal lesions. The kidney measures 11 cm in maximum dimension. LEFT KIDNEY: Normal. No hydronephrosis. No renal calculi or focal parenchymal lesions. The kidney measures 10 cm in maximum dimension. SPLEEN: Normal. The spleen measures 11.6 cm in maximum dimension. FREE FLUID: None. US/US abdomen comp w elastography IMPRESSION: 1. Impression: Slightly echogenic liver. Limited exam. The pancreas, proximal aorta, IVC and common bile duct are not well visualized. 2. Liver elastography: Adequate liver sampling. High probability of being normal. REFERENCE: Society of Radiologists in Ultrasound Liver Stiffness Thresholds (2020): LIVER STIFFNESS THRESHOLDS: *Liver Stiffness equal or less than 1.3 m/s: High probability of being normal. *Liver Stiffness less than 1.7 m/s: In the absence of other known clinical signs, rules out compensated advanced chronic liver disease. *Liver Stiffness 1.7-2.1 m/s: Suggestive of compensated advanced chronic liver disease but need further test for confirmation. *Liver Stiffness over 2.1 m/s: Rules in compensated advanced chronic liver disease. *Liver Stiffness over 2.4 m/s: Suggestive of clinically significant portal hypertension. QUALITY OF DATA SET: *IQR/Median value equal or less than 0.15 implies a quality data set. *IQR/Median value over 0.15 implies a poor quality data set. SIGNIFICANT CHANGE FROM PRIOR EXAM: Significant change if liver stiffness measurement is 10% or greater from prior exam. OTHER CONSIDERATIONS: The stage of liver fibrosis may be overestimated in the setting of acute hepatitis, liver inflammation, elevated liver function tests, hepatic vascular congestion, obstructive cholestasis, non-fasting state, and infiltrative diseases such as amyloidosis and lymphoma. In some patients with NAFLD, the liver stiffness thresholds for compensated advanced chronic liver disease may be lower. In causes other than viral hepatitis and NAFLD, liver stiffness thresholds are not well established.
== END 2022-03-07 09:35 | disposition home or self-care (01) ==
LOC: HO.US 09:34
PROVIDERS: Visit Provider Physician Assistant
DX: Z01.818 Encounter for other preprocedural examination (principal); J98.11 Atelectasis; Z98.84 Bariatric surgery status; E66.9 Obesity, unspecified; K21.9 Gastro-esophageal reflux disease without esophagitis
CPT/HCPCS: 71046; 74240; 76705; 76981

== ENCOUNTER → 2022-03-16 14:07 | Outpatient (BNVA) | payer BC, SELFPAY | PROVIDERS: PCP Physician Assistant; Referring Provider Physician Assistant; Visit Provider Dietitian, Registered | DX: E66.01 Morbid (severe) obesity due to excess calories (principal); Z71.3 Dietary counseling and surveillance | CPT/HCPCS: 97803 ==

== ENCOUNTER 2022-03-17 08:25 | Outpatient (REF) | payer BC, SELFPAY ==
--- NOTE | ~2022-03-17 | CT_ITS ---
EXAMINATION: CT ANGIOGRAM OF THE CHEST WITH AND WITHOUT CONTRAST (CT PULMONARY ANGIOGRAM FOR PE) CLINICAL INFORMATION: Atelectasis. J98.11 COMPARISON: Chest 03/08/2022 TECHNIQUE: Prior to contrast administration, noncontrast localization images were obtained. Subsequently, multidetector volumetric imaging was performed from the thoracic inlet to below the diaphragms following the administration of 80 mL Omnipaque 350 intravenous contrast. No contrast reaction reported Sagittal, coronal, and MIP oblique sagittal reformatted images were obtained on the CT workstation, uploaded to PACS, and reviewed. This CT examination was performed using dose optimization techniques as appropriate, variously including the following: *Automated exposure control *Adjustment of mA and/or kV according to patient size (this includes techniques or standardized protocols for targeted exams where dose is matched to indication/reason for exam; i.e. extremities or head) *Use of iterative reconstruction technique Total exam dose-length product: 406 mGy-cm FINDINGS: QUALITY OF STUDY/CONTRAST BOLUS: Satisfactory. PULMONARY ARTERIES: No central or segmental pulmonary emboli. THORACIC AORTA: No aneurysm or dissection. LUNGS: The lungs are well-expanded and clear of acute pneumonic process. There is no pulmonary nodule, mass, ground-glass density or interstitial thickening. Minimal linear atelectatic changes are seen in the lingula. PLEURA: No pleural effusion or pneumothorax. MEDIASTINUM: Normal heart size. No pericardial effusion. No hilar or mediastinal lymphadenopathy. No evidence of septal bowing or right heart strain. There is a small hiatal hernia. CHEST WALL/AXILLA: No axillary or internal mammary lymphadenopathy. OSSEOUS STRUCTURES: No acute or suspicious osseous abnormality. UPPER ABDOMEN: No reflux of contrast into the hepatic veins to suggest elevated right heart pressures. CT/CT angio chest PE protocol IMPRESSION: No evidence of PE. No evidence of aortic aneurysm or dissection. Minimal atelectatic changes seen in the lingula. VTE: negative
[2022-03-17] MEDS: iohexoL 350 MG/ML 100 ML INFUS..BTL IV (10:51)
== END 2022-03-17 08:26 | disposition home or self-care (01) ==
LOC: HO.CT 08:25
PROVIDERS: PCP Physician Assistant; Visit Provider Physician Assistant
DX: J98.11 Atelectasis (principal); R07.81 Pleurodynia; Z98.890 Other specified postprocedural states
CPT/HCPCS: 71275; Q9967

== ENCOUNTER 2022-03-29 11:11 | Day surgery (SDC) | payer BC, SELFPAY ==
[2022-03-24 09:45] VITALS: BMI 47.7
--- NOTE | 2022-03-25 00:01 | MHC.SHP ---
Pre-Procedural Eval Section A Date of Service: 03/25/22 The patient is an INPATIENT: No The History & Physical has been completed within 30 days and I have reviewed it.: Yes Section B Chief Complaint: Bariatric surgery status Relevant Family History (Specify if Yes): No Relevant Social History: None Present Medications: None Medical History: No relevant PMH History of Previous Operations: Relevant previous surgery/procedure and date(s) (lap gastric bypass) Allergies: Allergies Allergy/AdvReac Type Severity Reaction Status Date / Time oxycodone [From PERCOCET] Allergy Unknown ITCHY Verified 02/27/22 15:51 Review of Systems Sugical H&P ROS: Negative: Constitution, Cardiovascular, Respiratory, Neurological, Psychiatric, Hem-Onc, Allergic/Immunologic, Gastrointestinal, Genitourinary, Musculoskeletal, Integumentary, Endocrine and Eyes/Ears/Nose/Throat Exam Surgical H&P Exam: Normal: HEENT, Normal: Heart, Normal: Lungs, Normal: Extremities, Normal: Abdomen, Normal: Skin and Normal: Neurological Plan Diagnosis/Plan: Unchanged I have reviewed the history and physical and performed a pertinent physical examination on my patient. No changes have occurred unless specified.
[2022-03-28 14:11] LABS: COVID-19 Test Negative (Negative)
[2022-03-29 11:51] VITALS: BMI 46.1
[2022-03-29 11:56] LABS: UPreg QC Valid YES; Urine Pregnancy NEGATIVE (NEGATIVE)
[2022-03-29 12:13] VITALS: BP 116/72; PULSE 74; RESP 16; TEMP 36.6; O2SAT 96
[2022-03-29] MEDS: Lactated Ringers 1,000 ML 80 ML IVCONT (12:41)
--- NOTE | 2022-03-29 14:11 | HO.ANESPROP2 ---
[facility] Active Problems Active Problems: All Active Problems (Updated 03/27/22 @ 17:03 by Lisa Byrd PA-C) Hiatal hernia (Acute) Screening for diabetes mellitus (DM) (Acute) Screening for hypothyroidism (Acute) Screening for hypercholesterolemia (Acute) Screening, anemia, deficiency, iron (Acute) Shortness of breath (Acute) Preoperative examination (Acute) Morbid obesity due to excess calories (Acute) BMI 45.0-49.9, adult (Acute) Skin cyst (Acute) Generalized body aches (Acute) Annual physical exam (Acute) Skin cyst (Acute) Loss of transverse plantar arch of left foot (Acute) Foot pain, bilateral (Acute) Cholelithiasis (Acute) Biliary colic (Acute) Atypical chest pain (Acute) Migraines (Acute) Obesity (Acute) Right flank pain (Acute) Atelectasis, right (Acute) S/P cholecystectomy (Acute) Polyarthralgia (Acute) Acid reflux (Acute) Right low back pain (Acute) Pre-op evaluation (Acute) Generalized anxiety disorder (Acute) Hx of hernia repair (Acute) Hx of gastric bypass (Acute) Anxiety (Acute) Past Medical History Medical History (Updated 03/27/22 @ 17:03 by Lisa Byrd PA-C) Anxiety COVID-19 vaccine administered Depression Family history of adverse response to anesthesia in mother Hiatal hernia History of insomnia History of pernicious anemia Migraines Personal history of COVID-19 RUQ abdominal pain Tachycardia Family History Family History Mother Diabetes Heart attack Father No problems noted. Brother No problems noted. Daughter No problems noted. Surgical History Surgical History History of bunionectomy History of esophagogastroduodenoscopy (EGD) History of tonsillectomy and adenoidectomy Hx of cholecystectomy Hx of gastric bypass Hx of hernia repair S/P laparoscopic cholecystectomy (11/09/21) S/P panniculectomy History of Problems with Anesthesia: No Social History Social History Housing: House Are you a primary medical care administrator to a significant other at home: No Do you presently have visiting nurse or other home services: No Alcohol intake: current Alcohol intake frequency: holidays/special occasions only Patient Tobacco Use Status: Former Tobacco user Quit Date: 2016 Tobacco use type: Cigarette Second Hand Smoke Exposure: No Use of substances other than those prescribed or required for medical reasons: No Are you DNR?: No Advance Directives: No Advance Directives Information Provided: Yes service: No Current occupational status: employed 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 Cognitive needs: No Hearing needs: No Vision needs: Yes Meds Allergies Allergy/AdvReac Type Severity Reaction Status Date / Time oxycodone [From PERCOCET] Allergy Unknown ITCHY Verified 03/27/22 16:24 Active Medications: Current Medications Lactated Ringer's (Lr) 1,000 mls @ 80 mls/hr IVCONT .[id number] LEILA Last Admin: 03/29/22 12:41 Dose: 80 mls/hr Home Medications Medication Instructions Recorded Confirmed Last Taken Type citalopram 40 mg tablet 40 mg PO DAILY 09/20/20 03/29/22 03/29/22 History lorazepam 1 mg tablet 1 mg PO BEDTIME 11/22/20 01/17/22 12/07/21 History cholecalciferol (vitamin D3) 50 3,000 unit PO DAILY 01/04/21 01/17/22 12/07/21 History mcg (2,000 unit) capsule cyanocobalamin (vitamin B-12) 500 500 mcg PO DAILY 01/17/22 01/17/22 Unknown History mcg lozenges Exam Exam Date and Time: March 29, 2022 1411 Height,Weight and Vital Signs: Height 5 ft 4 in Weight 122.016 kg Last Vital Signs Temp 97.8 F 03/29/22 12:13 Pulse 74 03/29/22 12:13 Resp 16 03/29/22 12:13 BP 116/72 03/29/22 12:13 Pulse Ox 96 03/29/22 12:13 O2 Del Method 03/29/22 12:13 Pertinent Lab Results Pertinent Lab Results: Laboratory Tests 03/28/22 03/29/22 13:25 11:45 Urine Test NEGATIVE COVID-19 (TOSHIA) Negative COVID-19 Clin Com See Note Airway Mallampati Class: II TM Dist: >3cm Neck ROM: Full Loose/Missing/Broken Teeth: No Heart: RRR Lungs: CTA Assessment and Plan Assessment Anesthesia Assessment: Anesthesia Plan Discussed and Chart Reviewed Final Anesthetic Review History of Problems with Anesthesia: No NPO: Yes ASA Class: III Final Preanesthetic Review: Meds/Allgs Chart Reviewed, Consent Obtained/Reviewed and Anes Risks/Benef Reviewed Patient Risk: Intermediate Procedure Risk: Intermediate Anesthetic Plan Anesthetic Plan: MAC: Disposition: Standard PACU
--- NOTE | 2022-03-29 14:37 | PM.OP ---
Brief Operative Note Date of Service: 03/29/22 Pre-op diagnosis: Diaphragmatic hernia, s/p gastric bypass Procedure: PROCEDURE DATE: ?03/29/2022 PREOPERATIVE DIAGNOSIS: GERD, diaphragmatic hernia, s/p gastric bypass POSTOPERATIVE DIAGNOSIS: ?Same as above. 1) Redundant gastric pouch, 2) Candy cane gastro-jejunostomy, 3) diaphragmatic hernia PROCEDURE: [id number] with biopsies Surgeon: ?Keenan Huber M.D.. Ph.D. Switchgear Repairer: ?None ? Anesthesia: IV sedation Estimated blood loss: ?Minimal FINDINGS AND PROCEDURE: ? OPERATIVE INDICATIONS: ?The patient is a 47 year old female known to me who underwent an open gastric bypass at [facility]. The patient had inadequate weight loss so far and has GERD.?Recent UGI showed a large diaphragmatic hernia containing 2/3 of the gastric pouch. Based on this information I recommended an upper endoscopy to evaluate the patient's symptoms.? Risks and complications of the surgery were discussed with the patient in advance particularly the possibility of perforation or bleeding that may require surgical intervention. The patient understood the risks and was in agreement with the plan. ? PROCEDURE: After informed consent was obtained by the patient, the patient was ?transferred to the Operating Room and was placed in the supine position.? After successful induction of IV sedation, a mouth block was placed and the patient was placed in the left lateral decubitus position. An upper endoscopy was performed next, the oropharynx and esophagus appeared within the normal limits. There was 4cm hiatal hernia.? The z-line was at 34cm from incisors and it smooth. Two biopsies were obtained from the distal esophagus 2-3 cm proximal to the GE junction and two biopsies from the GE junction. The crura were at 38cm from incisors. The gastric pouch was entered. There was significant lateral redundancy.. There was no gastritis and the gastrojejunostomy was at 41cm from incisors and it was patent. A biopsy was obtained from the gastric pouch. No significant bleeding was noted from any of the biopsy sites. There was no anastomotic ulcer.? At that point the scope was advanced into the proximal small intestine (proximal Idalia limb) which appeared to be normal as well. The scope was advancing preferentially to an elongated blind end of the Id[place] limb. Considerable manipulation was required to enter into the [place] limb and the scope was advanced up to 56cm from incisors. At that point Idalia limb and the pouch were decompressed and the scope was withdrawn from the patient's mouth. The patient was awaken and was transferred in stable condition to the Recovery Room for further care. I was present and performed all steps of the procedure. There were no residents to assist with this case. Keenan Huber M.D., Ph.D. Surgeon: David Huber MD Anesthesia: MAC Was an Switchgear Repairer used for this Procedure?: No Estimated blood loss (mL): 0 IV fluids (mL): 400 Urine output (mL): 0 (No Zarate to record) Pathology: other (1) gastric pouch, 2) GE junction x2, 3) distal esophagus x2) Condition: stable Disposition: PACU
[2022-03-29 15:09] VITALS: BP 101/69; PULSE 65; RESP 11; TEMP 36.5; O2SAT 100
[2022-03-29 15:24] VITALS: BP 101/69; PULSE 64; RESP 15; O2SAT 93
[2022-03-29 15:39] VITALS: BP 100/68; PULSE 60; RESP 16; TEMP 36.7; O2SAT 95
[2022-03-29 15:50] VITALS: BP 109/72
== END 2022-03-29 16:16 | disposition home or self-care (01) ==
PROVIDERS: Anesthesiology; Physician Assistant Surgical; PCP Physician Assistant; Visit Provider Surgery
PROC: 0DJ08ZZ Inspection of Upper Intestinal Tract, Via Natural or Artificial Opening Endoscopic (ICD-10-PCS; CPT 43235; principal; 2022-03-29 12:30)
DX: K95.89 Other complications of other bariatric procedure (principal); K21.9 Gastro-esophageal reflux disease without esophagitis; K44.9 Diaphragmatic hernia without obstruction or gangrene; Z98.84 Bariatric surgery status; E66.01 Morbid (severe) obesity due to excess calories; Z68.42 Body mass index [BMI] 45.0-49.9, adult; F32.A Depression, unspecified; F41.9 Anxiety disorder, unspecified; R00.0 Tachycardia, unspecified; Z88.8 Allergy status to other drugs, medicaments and biological substances; Z20.822 Contact with and (suspected) exposure to COVID-19; Z86.16 Personal history of COVID-19; Z90.49 Acquired absence of other specified parts of digestive tract; Z87.891 Personal history of nicotine dependence
CPT/HCPCS: 43239; 81025; 87635; 88305; 88342

== ENCOUNTER 2022-06-06 08:53 | Inpatient (IN) | payer BC, SELFPAY ==
[2022-05-29 13:19] VITALS: BMI 42.4
--- NOTE | 2022-05-30 07:08 | ECG_ITS ---
Test Reason : cp Blood Pressure : / mmHG Vent. Rate : 065 BPM Atrial Rate : 065 BPM P-R Int : 166 ms QRS Dur : 086 ms QT Int : 416 ms P-R-T Axes : 011 -21 015 degrees QTc Int : 432 ms Normal sinus rhythm RSR' or QR pattern in V1 suggests right ventricular conduction delay Left axis deviation Borderline ECG When compared with ECG of 24-NOV-2020 07:53, No significant change was found Referred By: Abiel Verma Electronically Signed By:KHUSHI FOLEY MD
[2022-05-30 07:18] LABS: MANUAL DIFF FLAG NO
[2022-05-30 07:28] LABS: Basophils Percent Auto 0.4 % (0-2); Eosinophils Percent Auto 0.7 % (0-4); Hematocrit 39.7 % (37.0-47.0); Hemoglobin 12.7 g/dl (12.0-16.0); Imm Gran Abs Auto 0.01 X10*3/uL (0.00-0.03); Imm Gran Pct Auto 0.2 % (0.0-0.4); Lymphocytes Absolute Auto 0.8 X10*3/uL (1.2-4.9); Lymphocytes Percent Auto 17.5 % (20-40); Mean Corpuscular Hemoglobin 27.3 pg (27.0-33.0); Mean Corpuscular Volume 85.4 fL (80.0-98.0); Mean Platelet Volume 10.5 fL (9.4-12.3); Monocytes Absolute Auto 0.4 X10*3/uL (0.1-1.2); Monocytes Percent Auto 8.3 % (2-11); Neutrophils Absolute Auto 3.3 x10*3/uL (2.0-8.3); Neutrophils Percent Auto 72.9 % (45-73); Platelet Count 221 X10*3/uL (160-400); Red Blood Count 4.65 X10*6/uL (4.20-5.50); Red Cell Distribution Width 14.6 % (11.0-16.0); White Blood Count 4.6 X10*3/uL (4.8-10.8)
[2022-05-30 07:36] LABS: INTERNATIONAL NORM RATIO 1.1 (0.9-1.1); Prothrombin Time 12.8 SEC (10.0-13.1)
[2022-05-30 07:39] LABS: Estimated Average Glucose 94 mg/dL; Hemoglobin A1c % 4.9 %; Partial Thromboplastin Time 40.6 SEC (26.0-36.4)
[2022-05-30 08:21] LABS: Alanine Aminotransferase 10 U/L (0-31); Albumin Level 4.2 g/dL (3.5-5.0); Alkaline Phosphatase 50 U/L (39-117); Anion Gap 14 (12-20); Aspartate Amino Transferase 14 U/L (5-31); Bilirubin Total 1.1 mg/dL (0.0-1.0); Blood Urea Nitrogen 18 mg/dL (9-16); C Reactive Protein 1.21 mg/dL (< or = 0.50); Calcium 9.4 mg/dL (8.4-10.2); Carbon Dioxide 21 mmol/L (22-29); Chloride 107 mmol/L (96-108); Cholesterol 162 mg/dL; Estimated Glomerular Filt Rate > 60; Glucose Random 101 mg/dL (60-115); HDL Cholesterol 45 mg/dL; Insulin 7 uU/mL (2-29); LDL Cholesterol Calculated 100 mg/dl; Sodium 138 mmol/L (135-145); TSH reflex Free T4 1.66 uIU/mL (0.32-4.0); Total Protein 6.7 g/dL (6.5-8.0); Triglycerides 86 mg/dL
--- NOTE | 2022-06-02 14:56 | MHC.SHP ---
Pre-Procedural Eval Section A Date of Service: 06/02/22 The patient is an INPATIENT: Yes The History & Physical has been completed within 30 days and I have reviewed it.: Yes Section B Chief Complaint: morbid obesity Relevant Family History (Specify if Yes): No Relevant Social History: None Present Medications: None Medical History: No relevant PMH History of Previous Operations: Relevant previous surgery/procedure and date(s) (open gastric bypass) Allergies: Allergies Allergy/AdvReac Type Severity Reaction Status Date / Time oxycodone [From PERCOCET] Allergy Intermediate Itching Verified 05/29/22 11:14 Review of Systems Sugical H&P ROS: Negative: Constitution, Cardiovascular, Respiratory, Neurological, Psychiatric, Hem-Onc, Allergic/Immunologic, Gastrointestinal, Genitourinary, Musculoskeletal, Integumentary, Endocrine and Eyes/Ears/Nose/Throat Exam Surgical H&P Exam: Normal: HEENT, Normal: Heart, Normal: Lungs, Normal: Extremities, Normal: Abdomen, Normal: Skin and Normal: Neurological Plan Diagnosis/Plan: Unchanged I have reviewed the history and physical and performed a pertinent physical examination on my patient. No changes have occurred unless specified.
--- NOTE | 2022-06-05 09:32 | HO.ANESPROP2 ---
Documented by User: Hermelinda Kim NP 06/05/22 09:34 HPI - Anesthesia Eval Consult details Narrative: 47yo F for Gastrectomy Sleeve,EGD,poss diaphragmatic hernia,poss ventral hernia,poss open, PMFSH Active Problems Active Problems: All Active Problems (Updated 05/29/22 @ 13:19 by Ludy Rojas RN) Screening for diabetes mellitus (DM) (Acute) Screening for hypothyroidism (Acute) Screening for hypercholesterolemia (Acute) Screening, anemia, deficiency, iron (Acute) Shortness of breath (Acute) Preoperative examination (Acute) Morbid obesity due to excess calories (Acute) BMI 45.0-49.9, adult (Acute) Skin cyst (Acute) Generalized body aches (Acute) Annual physical exam (Acute) Skin cyst (Acute) Loss of transverse plantar arch of left foot (Acute) Foot pain, bilateral (Acute) Cholelithiasis (Acute) Biliary colic (Acute) Atypical chest pain (Acute) Migraines (Acute) Obesity (Acute) Right flank pain (Acute) Atelectasis, right (Acute) S/P cholecystectomy (Acute) Polyarthralgia (Acute) Acid reflux (Acute) Right low back pain (Acute) Pre-op evaluation (Acute) Generalized anxiety disorder (Acute) Hiatal hernia (Acute) Barretts esophagus (Acute) Hx of hernia repair (Acute) Hx of gastric bypass (Acute) Anxiety (Acute) Past Medical History Medical History Anxiety COVID-19 vaccine administered Depression Family history of adverse response to anesthesia in mother Hiatal hernia History of insomnia Iron deficiency anemia Migraines Personal history of COVID-19 RUQ abdominal pain Family History Family History Mother Diabetes Heart attack Father No problems noted. Brother No problems noted. Daughter No problems noted. Surgical History Surgical History History of bunionectomy History of esophagogastroduodenoscopy (EGD) History of tonsillectomy and adenoidectomy Hx of gastric bypass Hx of hernia repair S/P laparoscopic cholecystectomy (11/09/21) S/P panniculectomy History of Problems with Anesthesia: No Social History Social History Housing: House Are you a primary ambulatory care coordinator to a significant other at home: No Do you presently have visiting nurse or other home services: No Alcohol intake: current Alcohol intake frequency: does not drink Patient Tobacco Use Status: Former Tobacco user Quit Date: 2016 Tobacco use type: Cigarette Years Smoked: 15 Second Hand Smoke Exposure: No Use of substances other than those prescribed or required for medical reasons: No Have you been hit, kicked, punched, or otherwise hurt by someone within the past year? 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 needs: No Hearing needs: No Vision needs: Yes Meds Allergies Allergy/AdvReac Type Severity Reaction Status Date / Time oxycodone [From PERCOCET] Allergy Intermediate Itching Verified 06/06/22 09:31 Home Medications Medication Instructions Recorded Confirmed Last Taken Type citalopram 40 mg tablet 40 mg PO DAILY 09/20/20 05/29/22 06/05/22 07:00 History lorazepam 1 mg tablet 1 mg PO BEDTIME 11/22/20 05/29/22 06/05/22 20:00 History cholecalciferol (vitamin D3) 50 2,000 unit PO DAILY 01/04/21 05/29/22 06/05/22 07:00 History mcg (2,000 unit) capsule cyanocobalamin (vitamin B-12) 500 500 mcg PO DAILY 01/17/22 05/29/22 06/05/22 07:00 History mcg lozenges famotidine 20 mg tablet 20 mg PO BEDTIME 05/29/22 05/29/22 06/05/22 20:00 History Exam Exam Date and Time: June 05, 2022 0932 Height,Weight and Vital Signs: Height 5 ft 4 in Weight 112.037 kg Pertinent Lab Results Pertinent Lab Results: Laboratory Tests 11/05/30/22 05/30/22 07:10 07:10 07:10 WBC 4.6 L RBC 4.65 Hgb 12.7 Hct 39.7 MCV 85.4 MCH 27.3 MCHC 32.0 RDW 14.6 Plt Count 221 MPV 10.5 Immature Gran % (Auto) 0.2 Neut % (Auto) 72.9 Lymph % (Auto) 17.5 L [place] % (Auto) 8.3 Eos % (Auto) 0.7 Baso % (Auto) 0.4 Lymph # (Auto) 0.8 L [place] # (Auto) 0.4 Eos # (Auto) 0.0 Baso # (Auto) 0.0 Abs Immat Gran (auto) 0.01 Absolute Neuts (auto) 3.3 Absolute Nucleated RBC 0.000 Nucleated RBC % (auto) 0.0 PT 12.8 INR 1.1 APTT 40.6 H Sodium 138 Potassium 4.0 Chloride 107 Carbon Dioxide 21 L Anion Gap 14 BUN 18 H Creatinine 0.70 Estim Creat Clear Calc 123.0 Estimated GFR > 60 Random Glucose 101 Estimat Average Glucose Hemoglobin A1c % Insulin Level 7 Calcium 9.4 D Total Bilirubin 1.1 H AST 14 ALT 10 Alkaline Phosphatase 50 C-Reactive Protein 1.21 H Total Protein 6.7 Albumin 4.2 Triglycerides 86 Cholesterol 162 LDL Cholesterol, Calc 100 HDL Cholesterol 45 TSH 1.66 Blood Type Antibody Screen 05/30/22 05/30/22 07:10 07:10 WBC RBC Hgb Hct MCV MCH MCHC RDW Plt Count MPV Immature Gran % (Auto) Neut % (Auto) Lymph % (Auto) [place] % (Auto) Eos % (Auto) Baso % (Auto) Lymph # (Auto) [place] # (Auto) Eos # (Auto) Baso # (Auto) Abs Immat Gran (auto) Absolute Neuts (auto) Absolute Nucleated RBC Nucleated RBC % (auto) PT INR APTT Sodium Potassium Chloride Carbon Dioxide Anion Gap BUN Creatinine Estim Creat Clear Calc Estimated GFR Random Glucose Estimat Average Glucose 94 Hemoglobin A1c % 4.9 Insulin Level Calcium Total Bilirubin AST ALT Alkaline Phosphatase C-Reactive Protein Total Protein Albumin Triglycerides Cholesterol LDL Cholesterol, Calc HDL Cholesterol TSH Blood Type O Positive Antibody Screen NEGATIVE Narrative Narrative: EKG 05/2022 Vent. Rate : 065 BPM ? ? Atrial Rate : 065 BPM ?? P-R Int : 166 ms? QRS Dur : 086 ms ? ? QT Int : 416 ms ? ? ? P-R-T Axes : 011 -21 015 degrees ?? QTc Int : 432 ms ? Normal sinus rhythm RSR' or QR pattern in V1 suggests right ventricular conduction delay Left axis deviation Borderline ECG When compared with ECG of 24-NOV-2020 07:53, No significant change was found Assessment and Plan Assessment Anesthesia Assessment: Chart Reviewed Final Anesthetic Review History of Problems with Anesthesia: No Documented by User: Wilmar Paz MD 06/06/22 11:31 [facility] Past Medical History Medical History Anxiety COVID-19 vaccine administered Depression Family history of adverse response to anesthesia in mother Hiatal hernia History of insomnia Iron deficiency anemia Migraines Personal history of COVID-19 RUQ abdominal pain Family History Family History Mother Diabetes Heart attack Father No problems noted. Brother No problems noted. Daughter No problems noted. Surgical History Surgical History History of bunionectomy History of esophagogastroduodenoscopy (EGD) History of tonsillectomy and adenoidectomy Hx of gastric bypass Hx of hernia repair S/P laparoscopic cholecystectomy (11/09/21) S/P panniculectomy Social History Social History Housing: House Are you a primary ambulatory care coordinator to a significant other at home: No Do you presently have visiting nurse or other home services: No Alcohol intake: current Alcohol intake frequency: does not drink Patient Tobacco Use Status: Former Tobacco user Quit Date: 2016 Tobacco use type: Cigarette Years Smoked: 15 Second Hand Smoke Exposure: No Use of substances other than those prescribed or required for medical reasons: No Have you been hit, kicked, punched, or otherwise hurt by someone within the past year? 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 needs: No Hearing needs: No Vision needs: Yes Meds Allergies Allergy/AdvReac Type Severity Reaction Status Date / Time oxycodone [From PERCOCET] Allergy Intermediate Itching Verified 06/06/22 09:31 Home Medications Medication Instructions Recorded Confirmed Last Taken Type citalopram 40 mg tablet 40 mg PO DAILY 09/20/20 05/29/22 06/05/22 07:00 History lorazepam 1 mg tablet 1 mg PO BEDTIME 11/22/20 05/29/22 06/05/22 20:00 History cholecalciferol (vitamin D3) 50 2,000 unit PO DAILY 01/04/21 05/29/22 06/05/22 07:00 History mcg (2,000 unit) capsule cyanocobalamin (vitamin B-12) 500 500 mcg PO DAILY 01/17/22 05/29/22 06/05/22 07:00 History mcg lozenges famotidine 20 mg tablet 20 mg PO BEDTIME 05/29/22 05/29/22 06/05/22 20:00 History Exam Narrative Narrative: xEKG 05/2022 Vent. Rate : 065 BPM ? ? Atrial Rate : 065 BPM ?? P-R Int : 166 ms? QRS Dur : 086 ms ? ? QT Int : 416 ms ? ? ? P-R-T Axes : 011 -21 015 degrees ?? QTc Int : 432 ms ? Normal sinus rhythm RSR' or QR pattern in V1 suggests right ventricular conduction delay Left axis deviation Borderline ECG When compared with ECG of 24-NOV-2020 07:53, No significant change was found Airway Mallampati Class: II TM Dist: >3cm Neck ROM: Full Loose/Missing/Broken Teeth: No Heart: [id number] Lungs: cta b/l Assessment and Plan Final Anesthetic Review NPO: Yes ASA Class: III Final Preanesthetic Review: No Changes in Pt Med Stat, Meds/Allgs Chart Reviewed, Consent Obtained/Reviewed and Anes Risks/Benef Reviewed Patient Risk: Intermediate Procedure Risk: Intermediate Assessment/Block/Sedation in SS: Assess/Block/Sedation-SS Anesthetic Plan Anesthetic Plan: GA and Agree w/ Assess. and Plan Disposition: Standard PACU
[2022-06-05 13:07] LABS: COVID-19 Test Negative (Negative); IDNOW Serial# 16C4AD1C
[2022-06-06] VITALS (8 sets, daily range): BP systolic 115–146; BP diastolic 62–88; PULSE 65–92; RESP 16–18; TEMP 36.3–36.9; O2SAT 91–97
[2022-06-06 09:11] LABS: UPreg QC Valid YES; Urine Pregnancy NEGATIVE (NEGATIVE)
[2022-06-06] MEDS: Lactated Ringers 1,000 ML 100 ML IVCONT ×2 (09:12→18:32)
[2022-06-06] MEDS: Lactated Ringers 1,000 ML 999 ML IV (09:12)
--- NOTE | 2022-06-06 11:17 | P.BOP_ITS ---
Brief Operative Note Date of Service: 06/06/22 Pre-op diagnosis: Morbid obesity with comorbidities (see below) Post-op diagnosis: same Procedure: PROCEDURE: Vmrjwvii-egwggk-ryzigxfvolg, laparoscopic repair of incarcerated diaphragmatic hernia, extensive laparoscopic lysis of adhesions and laparoscopic sleeve gastrectomy of the gastric pouch INDICATIONS: This is a 47 year-old female with a BMI of 47.9 kg/m2, history of failed open gastric bypass surgery and a moderate size diaphragmatic hernia with significant GERD. After appropriate workup and a 32.6 lbs preoperative weight loss was achieved, the patient was electively scheduled for laparoscopic, possibly open sleeve gastrectomy of the gastric pouch and hiatal hernia repair. The risks and complications of the procedure were discussed with the patient in advance, particularly the possibility of ; pulmonary embolism; staple line leak; bleeding; GERD; cardiac, pulmonary, or renal complications; as well as long-term problems such as insufficient weight loss, vitamin deficiency, strictures, or ulcers. The patient also understood that there is a significant probability that I may not be able to complete all steps of the procedure if dissection at some point is not safe. The patient understood all the risks, and was in agreement to proceed with surgery. DESCRIPTION OF PROCEDURE: After informed consent was obtained from the patient, the patient was given preoperative antibiotics, and was transferred to the operating room. After successful induction of general anesthesia, a Zarate catheter and pneumatic compressive devices were placed on both lower extremities. An upper endoscopy was performed next. The oropharynx and esophagus appeared to be within normal limits. There was a diaphragmatic hernia present of moderate size consistent with the findings of the preoperative upper GI. The stomach was entered. Then after all fluid and air were suctioned and the stomach was fully decompressed, the scope was withdrawn and secured in the mid esophagus. The patient was then prepped and draped in the usual sterile manner. Due to a midline incision from previous open gastric bypass and a laparoscopic incisional vental hernia repair with a mesh, abdominal access was established at the right flank with the Karla technique. A 12 mm blunt port was inserted, and the abdomen was insufflated with CO2 to a pressure of 15 mmHg. Under direct visualization, two additional ports were placed, specifically two 5 mm Versi- step ports to the right middle axillary line, and a 5 mm Versi-Step port to the midline at the suprapubic region. 1% lidocaine plan was used to infiltrate all port sites as well as all fascia defects. There were extensive adhesions in the midline involving the mesh and several small bowel loops. Extensive and tedious adhesiolysis was performed using the Thunderbeat (Olympus) and several loops of small bowel were freed without any injury to the small bowel. Adhesions between the omentum and the right liver edge was freed up to the midline. Once enough space was freed, two additional 5 mm Versi-step ports were placed to the left uppe quadrant and the left middle axillary line at the mid-abdomen. Further adhesiolysis was performed especially in the upper abdomen in which mostly omentum was involved and not small bowel. The left liver edge was identified. It was completely adhered to the surrounding fat. I started the omental fat from the liver edge continuing towards the right lobe of the liver. Adhesiolysis continued from the left to the right until I was able to create a free window towards the right upper quadrant connecting with the area I had dissected from the right side of the abdomen. Once the window was created, I went back to the right side and I placed an additional 5 mm Versi-step port to the right upper quadrant. This allowed me to dissect further at the window I had created previously from the left and eventually I was able to free enough space at the upper abdomen to be able to place the additional upper abdominal ports so I can proceed with the main part of the operation. To do this, some additional small bowel loops were freed at the mid-upper abdomen. Until this point about 3 hours of adhesiolysis was performed. Some omental and small bowel adhesions at the central abdomen around the mesh were left intact as they were not interfering with our procedure. At this point the patient was placed in a steep reverse Trendelenburg position and two additional 5 mm Versi step ports were placed to the right of the midline as well as the left upper quadrant from the camera. There were dense adhesions between the undersurface of the left lobe of the liver and the surrounding fat which were lysed with the Thunderbeat. Eventually the distal gastric remnant was identified and was also freed from the left lobe of the liver. I continued towards the angle of His the liver edge from surrounding tissues all the way to the angle of His. The Idalia limb was identified and its blind end was also adherent to the liver edge. Some of it was freed, enough to expose the right darin. Once this was done, an additional 5 mm port was placed to the right flank for the Mediflex retractor that was used to retract the left lobe of the liver to get exposure to the hiatal area. Some omental fat overlying the Idalia limb was mobilized and the gastro- jejunostomy was identified. I continued by dissecting between the gastric remnant and the gastric pouch . Separation of the gastric pouch from the gastric remnant was difficult. Nevertheless, all gastro-gastric adhesions were divided all the way to the angle of His and that allowed exposure to the left darin. The gastro-esophageal fat pad was opened with the ultrasonic device (Thunderbeat, Olympus) and the anterior esophagus and hiatus were exposed. The angle of His was opened with the ultrasonic device the fundus of the stomach from any diaphragmatic and splenic attachments. Adhesiolysis took approximately an additional 120 min to complete for a total of 5 hours.. There was an obvious significant-sized hiatal hernia containing the gastric pouch. I continued dissecting along the hiatus toward the left darin and the angle of His. I fully mobilized the fat pad that was incarcerated in the hernia. I then continued by dissecting even further into the posterior retro-esophageal space all the way to the angle of His. I continued to mobilize the esophagus into the mediastinum circumferentially. Both vagal nerves were seen and preserved. At that point, I was able to have at least 3 to 5 cm of esophagus into the abdomen.? After I completely mobilized the esophagus from both the left and right darin and I had a good mobilization of the esophagus circumferentially, I closed the hernia defect with five interrupted #0 Surgidac sutures using the Endo Stitch device, out of which one was placed anterior and four posterior to the esophagus. ? There was significant redundancy of the stomach laterally and posteriorly. There were extensive attachments of the lateral edge of the gastric pouch with surrounding fat. All these adhesions were carefully divided without damaging any of the blood supply of the pouch. Once the gastric pouch was completely freed, the redundant stomach was then divided with one Endo MADHURI-45 and one MADHURI-60 articulating purple load using the Ceram Hyd stapler and loads. Several endoscopies were performed by me before each staple fire to make sure that I did not narrow the gastro-jejunostomy or the pouch. Once I confirmed that none of the above occurred and there was no damage in the blood supply of the gastric pouch or Idalia limb, the resection was completed. Every effort was made that the gastric pouch had a tubular shape and an even caliber throughout. Once the sleeve resection was completed, the staple line of the gastric sleeve was reinforced with Hemoclips. The resected stomach was retrieved without difficulty from the Karla port. ?An upper endoscopy was performed. There was no narrowing at the GE junction. The scope was easily advanced all the way to the gastro-jejunostomy which was clearly visualized and it was patent and viable. There was no narrowing anywhere and the pouch's caliber was even throughout. The pouch's staple line was inspected and there was no evidence of ischemia, bleeding or dehiscence. At that point the gastroscope was withdrawn from the patient?s mouth while we were decompressing the bowel and the stomach from any remaining air. I looked into the lesser sac to see how the gastric pouch was situating and it was situating well. There was no bleeding from the staple line, spleen, or short gastric vessels. The Mediflex retractor was removed, and the undersurface of the liver was inspected and there was no bleeding. The patient was placed in supine position. I closed the fascial defect of the two 12 mm port sites using the EndoClose suture passer device and #1 Polysorb ties. Then 30cc of Ropivacaine plain with 10 mg of Dexamethasone were used to infiltrate the fascial closure as well as all skin incisions. A total of 7ml of Zynrelef was applied in the Karla wound. At this point, the abdomen was deflated, all ports were removed under direct vision, and no bleeding was noted from any of the port sites. The skin incisions were irrigated with saline and were closed with 4-0 absorbable monofilament sutures. Steri-Strips and OpSites were used to cover all incisions. The patient was extubated and was transferred in stable condition to the recovery room for further care. I was present and performed all mckenzie parts of the procedure. Ms. Byrd was the first line supervisor. There were no residents to assist with this case. This was an extremely difficult case due to dense adhesions from previous open gastric bypass and incisional ventral hernia repair with mesh with a total operative time of 6 hours. Keenan Huber MD, PhD, FACS Surgeon: David Huber MD Anesthesia: GETA, local and other (TAP block and 7ml Zynrelef) Was an Communication Studies Professor used for this Procedure?: No Communication Studies Professor: Lisa Byrd Estimated blood loss (mL): 10 IV fluids (mL): 3,500 Urine output (mL): 435 Pathology: other (Stomach) Condition: stable Disposition: PACU
[2022-06-06] MEDS: ceFAZolin Sodium/Dextrose,Iso 2 GM/50 ML PIGGYBACK IV ×2 (11:20→19:34)
--- NOTE | 2022-06-06 11:21 | PM.PNGS ---
Subjective Subjective Date of Service: 06/07/22 Interval history: Patient has mild incisional pain, but was able to ambulate and use the incentive spirometer. She is tolerating phase 1 bariatric diet Physical Exam Vital Signs: Vital Signs: Last Vital Signs Temp 97.9 F 06/06/22 09:30 Pulse 65 06/06/22 09:30 Resp 18 06/06/22 09:30 BP 115/62 06/06/22 09:30 Pulse Ox 96 06/06/22 09:30 O2 Del Method 06/06/22 09:30 BMI result Body Mass Index 42.4 GI: Inspection: Yes normal to inspection, Yes incision (clean, dry and intact) and Yes obesity Palpation (GI): Soft to palpation Extrem: Right lower extremity: normal to inspection (no calf tenderness) Left lower extremity: normal to inspection (no calf tenderness) Objective Data Active Medications Lactated Ringer's (Lr) 1,000 mls @ 100 mls/hr IVCONT .Q10H LEILA Last Admin: 06/06/22 09:12 Dose: 100 mls/hr Documented By: BOY Labs CBC & Chem 7: 06/07/22 05:17 06/07/22 05:17 Labs: Laboratory Results - last 24 hr 06/05/22 06/06/22 12:40 08:45 Urine Test NEGATIVE COVID-19 ([facility]) Negative COVID-19 Clin Com See Note Procedures Date of Service Date of Service: 06/07/22 Progress Note: A&P Assessment and plan (1) Morbid obesity due to excess calories: Status: Acute Assessment and Plan: s/p laparoscopic sleeve gastrectomy of the gastric pouch, lysis of adhesions repair of diaphragmatic hernia. Doing well Check am labs. If OK, will discharge home (2) Hiatal hernia: Status: Acute (3) Barretts esophagus: Status: Inactive (4) Hx of gastric bypass: Status: Acute (5) Anxiety: Status: Inactive (6) Acid reflux: Status: Acute (7) Steatosis, liver: Status: Acute (8) Migraines: Status: Acute (9) History of repair of hiatal hernia: Status: Acute (10) S/P laparoscopic sleeve gastrectomy: Status: Acute (11) Intra-abdominal adhesions: Status: Acute (12) Diaphragmatic hernia: Status: Acute Time Spent With Patient Time: Total time spent is greater than 50% in coordination of care (as documented) at patient's floor/unit and/or counseling patient: Quality Stroke Does the patient have a stroke diagnosis?: No VTE Prior VTE?: No VTE Risk Level:: Surgical - moderate VTE Device Contraindication: N/A - Device Ordered VTE Drug Contraindication: Treatment Not Indicated
[2022-06-06] MEDS: Acetaminophen 1,000 MG/100 ML PIGGYBACK 400 MG IV (12:40)
--- NOTE | 2022-06-06 17:48 | P.DS_ITS ---
DS: Providers Provider Date of Service: 06/07/22 Date of admission: 06/06/22 08:53 Primary care physician: Abiel Verma PA-C DS: Diagnosis Discharge Diagnosis (1) Morbid obesity due to excess calories: Status: Acute (2) Hiatal hernia: Status: Acute (3) Barretts esophagus: Status: Inactive (4) Hx of gastric bypass: Status: Acute (5) Anxiety: Status: Inactive (6) Acid reflux: Status: Acute (7) Steatosis, liver: Status: Acute (8) Migraines: Status: Acute DS: Summary Hospital Course Hospital Course: ADMITTING DIAGNOSIS: morbid obesity, s/p gastrtic bypass and hiatal hernia repair DISCHARGE DIAGNOSIS: same, s/p laparoscopic sleeve gastrectomy and repair diaphragmatic hernia PAST SURGICAL HISTORY: Gastric bypass, hiatal hernia repair, ventral hernia with mesh, panniculecotmy, lap patel PROCEDURE: upper endoscopy, laparoscopic sleeve gastrectomy and repair of diaphragmatic hernia hernia DISCHARGE SUMMARY: History of Present Illness: The patient is a 47 year-old woman with a BMI of 47.9 kg/m2 and associated co- morbidities as described above. The patient had extensive work-up, lost 28.8 lbs preoperatively and was electively scheduled for laparoscopic, possible open sleeve gastrectomy and gastropexy. Risks and complications of the surgery were discussed with the patient in advance, particularly the possibility of , pulmonary embolism, anastomotic leak, bleeding, bowel injury, GERD, cardiac, renal or pulmonary complications. The patient understood all the risks and was in agreement with the surgical plan. Hospital Course: The patient underwent an uneventful laparoscopic sleeve gastrectomy with gastropexy and repair of diaphragmatic hernia on the day of admission. Postoperatively, the patient was transferred to the surgical floor. The patient received IV Acetaminophen and IV dilaudid for pain control. Patient was started on bariatric phase 1 diet POD #0. On postoperative day one, the patient was feeling well without nausea, vomiting, fevers, or tachycardia. The patient had some mild incisional pain and the abdomen was soft. On the morning of postoperative day one, the patient was continued on 1 ounce of water or ice every half hour. During the day, the patient did fairly well, having some incisional pain, but able to ambulate adequately and to tolerate liquids well. Since the patient is doing well, we decided that the patient was ready to be discharged. The patient was given instructions to follow-up with me next week and to call my office for any fever over 101, persistent abdominal pain, nausea, vomiting, GERD, symptoms of DVT such as calf tenderness, or leg swelling, or pulmonary embolism such as chest pain or shortness of breath. The patient was also instructed to drink 40-60 ounces of liquids per day using the 1-ounce cups. The patient had been given prescriptions for Tylenol for pain, Zofran prn for nausea, and pantoprazole and carafate previously. The patient was encouraged to ambulate and use the incentive spirometer. The patient was allowed to shower, but no baths, and encouraged to stay active at home. All of these instructions were given to the patient personally. All questions were answered and the patient understood all instructions, the instructions were also given to the patient in print. Time Spent with Patient Time attestation: Total time spent providing and/or coordinating discharge services: Discharge coordination time: Less than 30 minutes Quality: Safe Use of Opioids Does Pt have an Active Cancer Diagnosis on the Problem List?: No Quality: Stroke Does the patient have a stroke diagnosis?: No Physical Exam Vital Signs: Vital Signs: Last Vital Signs Temp 97.9 F 06/06/22 09:30 Pulse 65 06/06/22 09:30 Resp 18 06/06/22 09:30 BP 115/62 06/06/22 09:30 Pulse Ox 96 06/06/22 09:30 O2 Del Method 06/06/22 09:30 BMI result Body Mass Index 42.4 DS: Data Data Completed and Pending Pending studies at discharge: Pending at discharge 06/06/22 17:13 Surgical [PTH] Routine Labs on day of discharge: Laboratory Results - last 24 hr 06/06/22 08:45 Urine Test NEGATIVE Discharge Plan Discharge Anticipated Discharge Date/Time: 06/07/22 10:00 Patient Disposition: Home, Self-Care Discharge Diagnosis: s/p sleeve gastrectomy and hiatal hernia repair Referrals: Abiel Verma PA-C [Primary Care Provider] - 1 Week Discharge Medications: Continued bupropion HCl 150 mg tablet extended release 24 hr 150 mg PO QAM 90 Days Qty: 90 1RF sumatriptan succinate 100 mg tablet 100 mg PO BEDTIME PRN (Reason: Migraine Headache) 30 Days Qty: 9 0RF topiramate 50 mg tablet 50 mg PO BEDTIME 90 Days Qty: 90 1RF citalopram 40 mg tablet 40 mg PO DAILY lorazepam 1 mg tablet 1 mg PO BEDTIME pantoprazole 40 mg tablet,delayed release (DR/EC) 40 mg PO DAILY Qty: 30 2RF sucralfate 100 mg/mL suspension 10 ml PO BID Qty: 400 2RF ondansetron HCl 4 mg tablet 4 mg PO Q12H Qty: 20 0RF Discontinued Vitron-C 65 mg iron- 125 mg tablet,delayed release (DR/EC) 1 tab PO BEDTIME Qty: 30 5RF famotidine 20 mg tablet 20 mg PO BEDTIME cholecalciferol (vitamin D3) 50 mcg (2,000 unit) capsule 2,000 unit PO DAILY cyanocobalamin (vitamin B-12) 500 mcg lozenge 500 mcg PO DAILY polyethylene glycol 3350 [Miralax] 17 gram powder in packet 17 g PO DAILY Qty: 14 0RF Rx Instructions: Mix each packet with 8oz of water and do 7 packets on 06/04/22 and another 7 packets on 06/05/22 Discharge Orders: Discharge Order (Routine); Ordered 06/07/22 Ordered By: David Huber Activity on Discharge: As tolerated Stand Alone Forms: Patient Portal Discharge page Care Plan Goals: weight loss Health Concerns: morbid obesity Plan of Treatment: No tub baths, sex or returning to work until discussed at first post op appointment. No exercise, alcohol, tobacco or illegal drug use. Continue to use incentive spirometer hourly while awake. Walk in home for 5- 10 minutes every 2 hours during the first week. Continue phase 1 diet today and start phase 2 diet tomorrow morning. Follow all instructions in the bariatric handbook and call with any questions. 1. Please call your doctor or come back to the emergency room should any new symptoms arise. 2. You will receive a courtesy call from [facility] 24-48 hours after discharge. 3. Activity: abstain from alcohol, practice limited stair climbing, no bending, no driving, no exercise, no illicit substances, no lifting, no sex, no tub bath, no work. 4. Diet: continue as discussed with bariatric team.. 5. Dressing Change/Wound Care: Do not change or remove surgical dressings unless they are wet or soiled. 6. Call your doctor if: - Your temperature exceeds 101.5 F - You experience excessive pain or swelling - You have an unexpected reaction to medication - You have excessive bleeding - You experience continued vomiting/nausea - Your incision begins to separate - Your incision shows signs of infection such as increased redness, swelling, excessive pain, heat, or drainage (light blood or clear fluid is normal) 7. General instructions: No lifting greater than 5 lbs for the next 4 weeks[address] driving within 24 hours of taking narcotic pain medications. If you do not move your bowels in the next 2 days, please take milk of magnesia over the counter. Please follow the post op diet and do not advance your diet until you are seen in the office in about 2 weeks. Please walk around your home every hour or two to prevent blood clots from forming in your legs. You do not need to wake from sleeping to walk. Please sleep in a bed or couch to prevent kinking at the hips and knees. Please take your incentive spirometer (your lung warpman) home with you and use it for the next few days to prevent pneumonias. You may shower, no hot tubs, baths or swimming pools. Please call the office with any questions or concerns such as increasing abdominal pain, fever, chills, shortness of breath, chest pain, leg pain or swelling, or redness or drainage from your incisions. Do not hesitate to contact the office with any questions at . The patient's medical history has been reviewed and they are considered low risk for post op DVT and therefore DVT prophylaxis is not considered necessary. Travel after surgery was reviewed. The patient has not disclosed any travel plans during the first 30 days after surgery and they have been advised that within the first 30 days after surgery any bus, plane, train or car travel over 2 hours in duration is contraindicated due to the possibility of developing blood clots from immobility. Any travel, needs to include periods of ambulation of 10 minutes in duration every 2 hours. The patient was instructed to discuss any plans for travel during this period with their bariatric surgeon. Assessment: stable post op sleeve gastrectomy Discharge Date/Time: 06/07/22 10:14
[2022-06-06] MEDS: Famotidine/PF 20 MG/2 ML VIAL IVPUSH ×2 (18:14→21:49)
[2022-06-06 18:30] LABS: Anion Gap 12 (12-20); Blood Urea Nitrogen 11 mg/dL (9-16); Calcium 8.7 mg/dL (8.4-10.2); Carbon Dioxide 22 mmol/L (22-29); Chloride 106 mmol/L (96-108); Estimated Glomerular Filt Rate > 60; Glucose Random 157 mg/dL (60-115); Potassium 4.6 mmol/L (3.3-5.1); Sodium 135 mmol/L (135-145)
[2022-06-06] MEDS: Acetaminophen 1,000 MG/100 ML PIGGYBACK 16.7 MG IV (18:45)
[2022-06-06 18:49] LABS: Hematocrit 37.9 % (37.0-47.0); Hemoglobin 11.8 g/dl (12.0-16.0)
[2022-06-06] MEDS: Topiramate 25 MG TABLET 50 MG PO (19:34)
[2022-06-06] MEDS: 0.9 % Sodium Chloride Flush 3 ML SYRINGE IVFLUSH (19:34)
[2022-06-06] MEDS: ondansetron HCL 4 MG/2 ML VIAL IVPUSH (19:34)
[2022-06-07] VITALS: BP 133/73; PULSE 71; RESP 17; TEMP 36.7; O2SAT 93
[2022-06-07] MEDS: Acetaminophen 1,000 MG/100 ML PIGGYBACK 16.7 MG IV ×2 (00:11→06:11)
[2022-06-07 04:00] VITALS: BP 117/70; PULSE 71; RESP 17; TEMP 36.3; O2SAT 96
[2022-06-07] MEDS: ondansetron HCL 4 MG/2 ML VIAL IVPUSH (04:10)
[2022-06-07] MEDS: Lactated Ringers 1,000 ML 100 ML IVCONT (05:00)
[2022-06-07 06:02] LABS: MANUAL DIFF FLAG NO
[2022-06-07 06:07] LABS: Basophils Percent Auto 0.2 % (0-2); Hematocrit 34.6 % (37.0-47.0); Imm Gran Abs Auto 0.02 X10*3/uL (0.00-0.03); Imm Gran Pct Auto 0.3 % (0.0-0.4); Lymphocytes Absolute Auto 0.5 X10*3/uL (1.2-4.9); Mean Corpuscular HGB Conc 31.8 g/dl (31.0-35.0); Mean Corpuscular Hemoglobin 27.6 pg (27.0-33.0); Mean Corpuscular Volume 86.9 fL (80.0-98.0); Mean Platelet Volume 11.3 fL (9.4-12.3); Monocytes Absolute Auto 0.4 X10*3/uL (0.1-1.2); Monocytes Percent Auto 5.9 % (2-11); Neutrophils Absolute Auto 5.3 x10*3/uL (2.0-8.3); Neutrophils Percent Auto 85.6 % (45-73); Platelet Count 215 X10*3/uL (160-400); Red Blood Count 3.98 X10*6/uL (4.20-5.50); Red Cell Distribution Width 14.6 % (11.0-16.0); White Blood Count 6.2 X10*3/uL (4.8-10.8)
[2022-06-07 06:53] LABS: Anion Gap 11 (12-20); Blood Urea Nitrogen 10 mg/dL (9-16); Calcium 8.6 mg/dL (8.4-10.2); Carbon Dioxide 21 mmol/L (22-29); Chloride 104 mmol/L (96-108); Creatinine Clr Calc Pharmacy 141.2; Estimated Glomerular Filt Rate > 60; Glucose Random 126 mg/dL (60-115); Potassium 3.9 mmol/L (3.3-5.1); Sodium 132 mmol/L (135-145)
[2022-06-07] MEDS: Famotidine/PF 20 MG/2 ML VIAL IVPUSH (07:15)
[2022-06-07 08:00] VITALS: BP 140/80; PULSE 70; RESP 19; TEMP 36.6; O2SAT 94
--- NOTE | 2022-06-07 09:00 | MHC.CM.PN ---
PATIENT IS DC HOME - SELF CARE. TRANSPORT PREVIOUSLY ARRANGED. RN AWARE OF PLAN
--- NOTE | 2022-06-07 09:08 | PC.NURSE ---
Late entry: Anesthesia record not in patient chart. Per Dr Oriana Paz stated he will print the report in the morning when he comes in. Nicci Nix aware.
--- NOTE | 2022-06-07 13:39 | HO.POSTANES ---
Post Anesthesia Evaluation Post Anesthesia Evaluation Vital Signs: Vital Signs Temp Pulse Resp BP Pulse Ox O2 Del Method 06/07/22 08:00 97.8 F 70 19 140/80 H 94 Room Air 06/07/22 04:00 97.3 F 71 17 117/70 96 Room Air Anesthesia: General Endotracheal-GETA Mental Status: Awake Pain Control: Satisfactory Nausea/Vomiting: None Hydration: Adequate Anesthesia-Related Issues: No Anes. Related Issues
== END 2022-06-07 10:14 | disposition home or self-care (01) | DRG 403 ==
LOC: HO.SSSA 08:59 → HO.S3 16:05
PROVIDERS: Nurse Practitioner; Physician Assistant; Physician Assistant Surgical; Admitting Provider Surgery; PCP Physician Assistant; Visit Provider Surgery
PROC: 0DB64Z3 Excision of Stomach, Percutaneous Endoscopic Approach, Vertical (ICD-10-PCS; CPT 43845; principal; 2022-06-06 10:50)
DX: E66.01 Morbid (severe) obesity due to excess calories (principal); K44.0 Diaphragmatic hernia with obstruction, without gangrene; K76.0 Fatty (change of) liver, not elsewhere classified; K21.9 Gastro-esophageal reflux disease without esophagitis; K22.70 Barrett's esophagus without dysplasia; F41.9 Anxiety disorder, unspecified; K66.0 Peritoneal adhesions (postprocedural) (postinfection); G43.909 Migraine, unspecified, not intractable, without status migrainosus; Z98.84 Bariatric surgery status; Z68.42 Body mass index [BMI] 45.0-49.9, adult; Z20.822 Contact with and (suspected) exposure to COVID-19; Z88.5 Allergy status to narcotic agent; Z87.891 Personal history of nicotine dependence; Z79.899 Other long term (current) drug therapy
CPT/HCPCS: 36415; 80048; 80053; 80061; 81025; 83036; 83525; 84443; 85014; 85018; 85025; 85610; 85730; 86140; 86850; 86900; 86901; 87635; 88307; 88342; 93005; A4649; C9088; J0131; J0690; J1100; J1170; J2250; J2405; J2795; J3010

== ENCOUNTER → 2022-06-28 14:15 | Outpatient (BNVA) | payer BC, SELFPAY | PROVIDERS: PCP Physician Assistant; Visit Provider Physician Assistant | DX: Z98.84 Bariatric surgery status (principal) ==

== ENCOUNTER → 2022-07-13 14:17 | Outpatient (BNVA) | payer BC, SELFPAY | PROVIDERS: PCP Physician Assistant; Visit Provider Physician Assistant | DX: Z98.84 Bariatric surgery status (principal) ==

== ENCOUNTER → 2022-08-17 14:18 | Outpatient (BNVA) | payer BC, SELFPAY | PROVIDERS: PCP Physician Assistant; Visit Provider Physician Assistant | DX: Z13.89 Encounter for screening for other disorder (principal) ==

== ENCOUNTER → 2022-08-31 08:45 | Outpatient (BNVA) | payer BC, SELFPAY | PROVIDERS: PCP Physician Assistant; Visit Provider Surgery | DX: Z13.89 Encounter for screening for other disorder (principal) ==

== ENCOUNTER 2022-09-01 07:45 | Day surgery (SDC) | payer BC, SELFPAY ==
[2022-09-01] VITALS (8 sets, daily range): BP systolic 124–137; BP diastolic 68–93; PULSE 55–84; RESP 16–20; TEMP 36.1–37.1; O2SAT 97–100; BMI 35.2
[2022-09-01 08:22] LABS: UPreg QC Valid YES; Urine Pregnancy NEGATIVE (NEGATIVE)
--- NOTE | 2022-09-01 09:22 | HO.ANESPROP2 ---
HPI - Anesthesia Eval Consult details Narrative: 47 grant mariam s/p repair of hiatal hernia, sleevs gastrectomy,gastric bypass for anal fissure repair PMFSH Active Problems Active Problems: All Active Problems (Updated 08/29/22 @ 15:35 by SABA Figueredo) Anal fissure (Acute) Diaphragmatic hernia (Acute) Intra-abdominal adhesions (Acute) History of repair of hiatal hernia (Acute) S/P laparoscopic sleeve gastrectomy (Acute) Steatosis, liver (Acute) Morbid obesity due to excess calories (Acute) Migraines (Acute) Acid reflux (Acute) Generalized anxiety disorder (Acute) Hiatal hernia (Acute) Hx of gastric bypass (Acute) Past Medical History Medical History Anal fissure Annual physical exam Anxiety Atelectasis, right Atypical chest pain Barretts esophagus Biliary colic BMI 45.0-49.9, adult Cholelithiasis COVID-19 vaccine administered Depression Family history of adverse response to anesthesia in mother Foot pain, bilateral Generalized body aches Hiatal hernia History of insomnia Iron deficiency anemia Loss of transverse plantar arch of left foot Migraines Obesity Personal history of COVID-19 Polyarthralgia Pre-op evaluation Preoperative examination Right flank pain Right low back pain RUQ abdominal pain Screening for diabetes mellitus (DM) Screening for hypercholesterolemia Screening for hypothyroidism Screening, anemia, deficiency, iron Shortness of breath Skin cyst Skin cyst Family History Family History Mother Diabetes Heart attack Father No problems noted. Brother No problems noted. Daughter No problems noted. Surgical History Surgical History History of bunionectomy History of esophagogastroduodenoscopy (EGD) History of tonsillectomy and adenoidectomy Hx of gastric bypass Hx of hernia repair S/P cholecystectomy S/P laparoscopic cholecystectomy (11/09/21) S/P panniculectomy History of Problems with Anesthesia: No Social History Social History Housing: House Are you a primary field care coordinator to a significant other at home: No Do you presently have visiting nurse or other home services: No Alcohol intake: former Patient Tobacco Use Status: Former Tobacco user Quit Date: 2016 Tobacco use type: Cigarette Years Smoked: 15 Second Hand Smoke Exposure: No Use of substances other than those prescribed or required for medical reasons: No Advance Directives: No Advance Directives Information Provided: Yes service: No Current occupational status: employed 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 Cognitive needs: No Hearing needs: No Vision needs: Yes Meds Allergies Allergy/AdvReac Type Severity Reaction Status Date / Time oxycodone [From PERCOCET] Allergy Intermediate Itching Verified 08/31/22 08:59 Home Medications Medication Instructions Recorded Confirmed Last Taken Type citalopram 40 mg tablet 40 mg PO DAILY 09/20/20 08/31/22 06/05/22 07:00 History lorazepam 1 mg tablet 1 mg PO BEDTIME 11/22/20 08/31/22 06/05/22 20:00 History Exam Exam Date and Time: September 01, [id number] Height,Weight and Vital Signs: Height 5 ft 4 in Weight 92.986 kg Last Vital Signs Temp 96.9 F 09/01/22 08:01 Pulse 84 09/01/22 08:01 Resp 16 09/01/22 08:01 BP 124/93 H 09/01/22 08:01 Pulse Ox 97 09/01/22 08:01 O2 Del Method 09/01/22 08:01 Pertinent Lab Results Pertinent Lab Results: Laboratory Tests 09/01/22 07:54 Urine Test NEGATIVE Airway Mallampati Class: II TM Dist: >3cm Neck ROM: Full Heart: rrr Lungs: cta Assessment and Plan Assessment Anesthesia Assessment: Anesthesia Plan Discussed, Smoking Cess. Discussed and Chart Reviewed Final Anesthetic Review History of Problems with Anesthesia: No NPO: Yes ASA Class: III Final Preanesthetic Review: No Changes in Pt Med Stat, Meds/Allgs Chart Reviewed, Consent Obtained/Reviewed and Anes Risks/Benef Reviewed Patient Risk: Intermediate Procedure Risk: Intermediate Anesthetic Plan Anesthetic Plan: GA and Agree w/ Assess. and Plan Disposition: Standard PACU
--- NOTE | 2022-09-01 09:33 | MHC.SHP ---
Pre-Procedural Eval Section A Date of Service: 09/01/22 The patient is an INPATIENT: No Changes since office visit: No Cold of Flu in the past 2 weeks, No New Medical Problems, No Changes in Medication and No Patient answered all questions The History & Physical has been completed within 30 days and I have reviewed it.: Yes Section B Chief Complaint: Anal fissure, unspecified Allergies: Allergies Allergy/AdvReac Type Severity Reaction Status Date / Time oxycodone [From PERCOCET] Allergy Intermediate Itching Verified 08/31/22 08:59 Plan I have reviewed the history and physical and performed a pertinent physical examination on my patient. No changes have occurred unless specified. Time Spent With Patient Time: Total time managing care of this patient today ____ minutes.
--- NOTE | 2022-09-01 10:21 | W.PM.OPN ---
Operative Note Operative Note Date of Service: 09/01/22 Narrative: Preop diagnosis: Anal fissure Postop diagnosis: Anal fissure Procedure: Exam under anesthesia, left lateral internal sphincterotomy Surgeon: Rogelio Price MD The patient is a 47-year-old female who was sent to the office because of anal pain for a week. She describes excessive pain especially with passage of stools. She was very tender on the anal canal mostly in the posterior area and was unable to do any anoscopic exam in the office. overall clinical picture was consistent with an anal fissure. She wants proceed with sphincterotomy because of her severe pain and tenderness. Understood the technique of this procedure as well as the risks, benefits, and alternatives. She was brought to the operating room. She was placed in prone mariama-knife position under general anesthesia via endotracheal tube. The buttocks were retracted with wide tape laterally. The perianal area was prepped and draped in the usual sterile fashion. A surgical time-out was done. The patient received Cefotan 2 g IV preoperatively . I infiltrated the perianal area with lidocaine 1%. I retracted the buttocks to examine the anal verge. Immediately I noticed a large posterior anal fissure in the distal anoderm. I inserted a Ankur Garrido retractor. I examined the anal canal circumferentially. There were no other lesions. There was no signs of any abscess, induration, or any lesion. I palpated for the intersphincteric groove. I made an incision on this the anal verge using blade 15. I did blunt dissection with fine tip hemostat to isolate the internal sphincter. I positioned this hemostat in the intersphincteric plane to protect the external sphincter. I divided the fibers of the internal sphincter down to the level of the dentate line. I then closed the incision with a running chromic 3-0 stitch. I also cauterized the anal fissure as well because of some oozing. I infiltrated the perianal area with Marcaine 0.5% for postop analgesia. once hemostasis was confirmed, the procedure was completed The patient tolerated procedure well. There were no immediate complications. Initial and final counts of sponges and instruments were correct. Estimated blood loss about 5 cc. The patient was extubated without difficulty and transferred to the recovery room with stable vital signs.
[2022-09-01] MEDS: Acetaminophen 325 MG TABLET 650 MG PO (10:53)
[2022-09-01] MEDS: HYDROmorphone HCl 0.5 MG/0.5 ML SYRINGE 0.25 MG IVPUSH (10:54)
[2022-09-01] MEDS: oxyCODONE HCl Immed Release 5 MG TABLET PO (10:54)
== END 2022-09-01 11:50 | disposition home or self-care (01) ==
PROVIDERS: Anesthesiology; PCP Physician Assistant; Visit Provider Surgery
PROC: (CPT 46080; principal; 2022-09-01 09:40)
DX: K60.2 Anal fissure, unspecified (principal); K59.09 Other constipation; D50.9 Iron deficiency anemia, unspecified; K44.9 Diaphragmatic hernia without obstruction or gangrene; K22.70 Barrett's esophagus without dysplasia; E66.01 Morbid (severe) obesity due to excess calories; Z68.36 Body mass index [BMI] 36.0-36.9, adult; F32.A Depression, unspecified; Z79.899 Other long term (current) drug therapy; Z88.8 Allergy status to other drugs, medicaments and biological substances; Z98.84 Bariatric surgery status; Z90.49 Acquired absence of other specified parts of digestive tract; Z86.16 Personal history of COVID-19; Z87.891 Personal history of nicotine dependence
CPT/HCPCS: 46080; 81025; J1170; J2250; J2795; J3010

== ENCOUNTER → 2022-09-14 13:36 | Outpatient (BNVA) | payer BC, SELFPAY | PROVIDERS: PCP Physician Assistant; Visit Provider Surgery | DX: Z13.89 Encounter for screening for other disorder (principal) ==

== ENCOUNTER → 2022-09-25 09:43 | Outpatient (BNVA) | payer BC, SELFPAY | PROVIDERS: PCP Physician Assistant; Visit Provider Surgery | DX: Z13.89 Encounter for screening for other disorder (principal) ==

== ENCOUNTER → 2022-10-12 13:48 | Outpatient (BNVA) | payer BC, SELFPAY | PROVIDERS: PCP Physician Assistant; Visit Provider Dietitian, Registered | DX: E66.9 Obesity, unspecified (principal); Z68.34 Body mass index [BMI] 34.0-34.9, adult | CPT/HCPCS: 97803 ==

== ENCOUNTER → 2022-10-18 14:49 | Outpatient (BNVA) | payer BC, SELFPAY | PROVIDERS: PCP Physician Assistant; Visit Provider Surgery | DX: Z13.89 Encounter for screening for other disorder (principal) ==

== ENCOUNTER → 2022-10-25 09:37 | Outpatient (BNVA) | payer BC, SELFPAY | PROVIDERS: PCP Physician Assistant; Visit Provider Physician Assistant | DX: E66.9 Obesity, unspecified (principal); Z98.84 Bariatric surgery status; K76.0 Fatty (change of) liver, not elsewhere classified ==

== ENCOUNTER → 2022-11-08 14:49 | Outpatient (BNVA) | payer BC, SELFPAY | PROVIDERS: PCP Physician Assistant; Visit Provider Surgery ==

== ENCOUNTER 2022-11-24 07:32 | Outpatient (REF) | payer BC, SELFPAY ==
[2022-11-24 07:50] LABS: MANUAL DIFF FLAG NO
[2022-11-24 08:21] LABS: Basophils Percent Auto 0.4 % (0-2); Eosinophils Percent Auto 0.6 % (0-4); Hematocrit 37.5 % (37.0-47.0); Hemoglobin 12.1 g/dl (12.0-16.0); Imm Gran Abs Auto 0.01 X10*3/uL (0.00-0.03); Imm Gran Pct Auto 0.2 % (0.0-0.4); Lymphocytes Percent Auto 19.6 % (20-40); Mean Corpuscular HGB Conc 32.3 g/dl (31.0-35.0); Mean Corpuscular Hemoglobin 27.9 pg (27.0-33.0); Mean Corpuscular Volume 86.6 fL (80.0-98.0); Mean Platelet Volume 11.5 fL (9.4-12.3); Monocytes Absolute Auto 0.4 X10*3/uL (0.1-1.2); Neutrophils Absolute Auto 3.5 x10*3/uL (2.0-8.3); Neutrophils Percent Auto 71.2 % (45-73); Platelet Count 211 X10*3/uL (160-400); Red Blood Count 4.33 X10*6/uL (4.20-5.50); Red Cell Distribution Width 15.2 % (11.0-16.0); White Blood Count 4.9 X10*3/uL (4.8-10.8)
[2022-11-24 08:26] LABS: Estimated Average Glucose 91 mg/dL; Hemoglobin A1c % 4.8 %
[2022-11-24 08:54] LABS: Alanine Aminotransferase 10 U/L (0-31); Albumin Level 3.8 g/dL (3.5-5.0); Alkaline Phosphatase 49 U/L (39-117); Anion Gap 12 (12-20); Aspartate Amino Transferase 14 U/L (5-31); Bilirubin Total 1.1 mg/dL (0.0-1.0); Blood Urea Nitrogen 13 mg/dL (9-16); C Reactive Protein 0.44 mg/dL (< or = 0.50); Calcium 9.2 mg/dL (8.4-10.2); Carbon Dioxide 22 mmol/L (22-29); Chloride 108 mmol/L (96-108); Cholesterol 151 mg/dL; Estimated Glomerular Filt Rate > 60; Glucose Random 86 mg/dL (60-115); HDL Cholesterol 48 mg/dL; Iron 57 mcg/dL (30-160); LDL Cholesterol Calculated 92 mg/dl; Percent Iron Saturation 19 % (15-50); Potassium 4.2 mmol/L (3.3-5.1); Sodium 138 mmol/L (135-145); Total Iron Binding Capacity 305 mcg/dL (228-428); Total Protein 6.1 g/dL (6.5-8.0); Triglycerides 56 mg/dL; Unsaturated Iron Binding 248 ug/dL
[2022-11-24 09:26] LABS: Ferritin 11 ng/mL (10-250); Folate 13.5 ng/mL (> or = 4.0); Insulin 4 uU/mL (2-29); TSH reflex Free T4 2.04 uIU/mL (0.32-4.0); Vitamin B12 521 pg/mL (200-900); Vitamin D 25-OH Total 76.7 ng/mL (>30)
[2022-11-27 16:47] LABS: Calcium (PTHI) 9.1 mg/dL (8.6-10.2); PTHI 60 pg/mL (16-77)
[2022-11-29 17:03] LABS: Zinc 48 mcg/dL (60-130)
[2022-12-01 16:14] LABS: Vitamin A 28 mcg/dL (38-98)
[2022-12-07 05:39] LABS: Vitamin B1 25 nmol/L (8-30)
== END 2022-11-24 07:33 | disposition home or self-care (01) ==
LOC: HO.LAB 07:32
PROVIDERS: PCP Physician Assistant; Visit Provider Physician Assistant
DX: E66.9 Obesity, unspecified (principal); K76.0 Fatty (change of) liver, not elsewhere classified; Z98.84 Bariatric surgery status
CPT/HCPCS: 36415; 80053; 80061; 82306; 82607; 82728; 82746; 83036; 83525; 83540; 83970; 84425; 84443; 84590; 84630; 85025; 86140

== ENCOUNTER → 2022-12-06 14:44 | Outpatient (BNVA) | payer BC, SELFPAY | PROVIDERS: PCP Physician Assistant; Visit Provider Surgery ==

== ENCOUNTER → 2022-12-13 15:18 | Outpatient (BNVA) | payer BC, SELFPAY | PROVIDERS: PCP Physician Assistant; Visit Provider Physician Assistant | DX: E66.9 Obesity, unspecified (principal); Z98.84 Bariatric surgery status; K76.0 Fatty (change of) liver, not elsewhere classified ==

== ENCOUNTER 2023-01-23 06:21 | Day surgery (SDC) | payer BC, SELFPAY ==
[2023-01-19 11:30] VITALS: BMI 32.6
--- NOTE | 2023-01-22 10:06 | P.CONAN_ITS ---
Documented by User: Hermelinda Kim NP 01/22/23 10:08 HPI - Anesthesia Eval Consult details Narrative: 48yo F for Exam Under Anesthesia,poss fistulotomy,poss seton, PMFSH Active Problems Active Problems: All Active Problems (Updated 01/19/23 @ 11:24 by Ludy Rojas, NOHEMI) Migraines (Acute) Acid reflux (Acute) Generalized anxiety disorder (Acute) Hiatal hernia (Acute) Steatosis, liver (Acute) S/P laparoscopic sleeve gastrectomy (Acute) History of repair of hiatal hernia (Acute) Intra-abdominal adhesions (Acute) Diaphragmatic hernia (Acute) Anal fistula (Acute) Obesity (Acute) Anal fissure (Acute) Hx of gastric bypass (Acute) Past Medical History Medical History Anal fissure Anal fistula Annual physical exam Anxiety Atelectasis, right Atypical chest pain Barretts esophagus Biliary colic BMI 45.0-49.9, adult Cholelithiasis COVID-19 vaccine administered Depression Family history of adverse response to anesthesia in mother Foot pain, bilateral Generalized body aches Hiatal hernia History of insomnia Iron deficiency anemia Loss of transverse plantar arch of left foot Migraines Morbid obesity due to excess calories Obesity Personal history of COVID-19 Polyarthralgia Pre-op evaluation Preoperative examination Right flank pain Right low back pain RUQ abdominal pain Screening for diabetes mellitus (DM) Screening for hypercholesterolemia Screening for hypothyroidism Screening, anemia, deficiency, iron Shortness of breath Family History Family History Mother Diabetes Heart attack Father No problems noted. Brother No problems noted. Daughter No problems noted. Surgical History Surgical History History of bunionectomy History of esophagogastroduodenoscopy (EGD) History of rectal surgery History of sleeve gastrectomy History of tonsillectomy and adenoidectomy Hx of gastric bypass Hx of hernia repair S/P laparoscopic cholecystectomy (11/09/21) S/P panniculectomy History of Problems with Anesthesia: No Social History Social History Housing: House Are you a primary career technology teacher to a significant other at home: No Do you presently have visiting nurse or other home services: No Alcohol intake: former Patient Tobacco Use Status: Former Tobacco user Quit Date: 5 yrs ago Tobacco use type: Cigarette Years Smoked: 15 Second Hand Smoke Exposure: No Use of substances other than those prescribed or required for medical reasons: No Are you DNR?: No Advance Directives: No Advance Directives Information Provided: Yes service: No Current occupational status: employed 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 Cognitive needs: No Hearing needs: No Vision needs: Yes Meds Allergies Allergy/AdvReac Type Severity Reaction Status Date / Time oxycodone [From PERCOCET] Allergy Intermediate Itching Verified 01/23/23 06:46 Home Medications Medication Instructions Recorded Confirmed Last Taken Type citalopram 40 mg tablet 40 mg PO DAILY 09/20/20 01/23/23 06/05/22 07:00 History lorazepam 1 mg tablet 1 mg PO BEDTIME 11/22/20 01/23/23 06/05/22 20:00 History Exam Exam Date and Time: January 22, 2023 1006 Height,Weight and Vital Signs: Height 5 ft 4 in Weight 86.183 kg Pertinent Lab Results Pertinent Lab Results: Laboratory Tests 11/24/22 11/24/22 07:50 07:50 WBC 4.9 Hgb 12.1 Hct 37.5 Plt Count 211 Sodium 138 Potassium 4.2 Chloride 108 Carbon Dioxide 22 BUN 13 Creatinine 0.69 Narrative Narrative: EKG 05/2022 Vent. Rate : 065 BPM ? ? Atrial Rate : 065 BPM ?? P-R Int : 166 ms? QRS Dur : 086 ms ? ? QT Int : 416 ms ? ? ? P-R-T Axes : 011 -21 015 degrees ?? QTc Int : 432 ms ? Normal sinus rhythm RSR' or QR pattern in V1 suggests right ventricular conduction delay Left axis deviation Borderline ECG When compared with ECG of 24-NOV-2020 07:53, No significant change was found Assessment and Plan Assessment Anesthesia Assessment: Chart Reviewed Final Anesthetic Review History of Problems with Anesthesia: No Documented by User: Aaron Jackson MD 01/23/23 08:37 PMF Past Medical History Medical History Anal fissure Anal fistula Annual physical exam Anxiety Atelectasis, right Atypical chest pain Barretts esophagus Biliary colic BMI 45.0-49.9, adult Cholelithiasis COVID-19 vaccine administered Depression Family history of adverse response to anesthesia in mother Foot pain, bilateral Generalized body aches Hiatal hernia History of insomnia Iron deficiency anemia Loss of transverse plantar arch of left foot Migraines Morbid obesity due to excess calories Obesity Personal history of COVID-19 Polyarthralgia Pre-op evaluation Preoperative examination Right flank pain Right low back pain RUQ abdominal pain Screening for diabetes mellitus (DM) Screening for hypercholesterolemia Screening for hypothyroidism Screening, anemia, deficiency, iron Shortness of breath Family History Family History Mother Diabetes Heart attack Father No problems noted. Brother No problems noted. Daughter No problems noted. Family history of problems with anesthesia: No Surgical History Surgical History History of bunionectomy History of esophagogastroduodenoscopy (EGD) History of rectal surgery History of sleeve gastrectomy History of tonsillectomy and adenoidectomy Hx of gastric bypass Hx of hernia repair S/P laparoscopic cholecystectomy (11/09/21) S/P panniculectomy Social History Social History Housing: House Are you a primary career technology teacher to a significant other at home: No Do you presently have visiting nurse or other home services: No Alcohol intake: former Patient Tobacco Use Status: Former Tobacco user Quit Date: 5 yrs ago Tobacco use type: Cigarette Years Smoked: 15 Second Hand Smoke Exposure: No Use of substances other than those prescribed or required for medical reasons: No Are you DNR?: No Advance Directives: No Advance Directives Information Provided: Yes service: No 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 occupational status: employed 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 Cognitive needs: No Hearing needs: No Vision needs: Yes Meds Allergies Allergy/AdvReac Type Severity Reaction Status Date / Time oxycodone [From PERCOCET] Allergy Intermediate Itching Verified 01/23/23 06:46 Home Medications Medication Instructions Recorded Confirmed Last Taken Type citalopram 40 mg tablet 40 mg PO DAILY 09/20/20 01/23/23 06/05/22 07:00 History lorazepam 1 mg tablet 1 mg PO BEDTIME 11/22/20 01/23/23 06/05/22 20:00 History Exam Airway Mallampati Class: II TM Dist: >3cm Neck ROM: Full Heart: ok Lungs: ok Assessment and Plan Assessment Anesthesia Assessment: Anesthesia Plan Discussed Final Anesthetic Review Family History of Problems with Anesthesia: No NPO: Yes ASA Class: II Final Preanesthetic Review: No Changes in Pt Med Stat, Meds/Allgs Chart Reviewed, Consent Obtained/Reviewed and Anes Risks/Benef Reviewed Patient Risk: Low Procedure Risk: Intermediate Anesthetic Plan Anesthetic Plan: GA and Agree w/ Assess. and Plan Disposition: Standard PACU
[2023-01-23 06:48] VITALS: BMI 31.6
[2023-01-23 06:57] LABS: UPreg QC Valid YES; Urine Pregnancy NEGATIVE (NEGATIVE)
[2023-01-23 07:06] VITALS: BP 96/55; PULSE 55; RESP 15; TEMP 36.3; O2SAT 99
[2023-01-23] MEDS: Lactated Ringers 1,000 ML 100 ML IVCONT (07:19)
--- NOTE | 2023-01-23 08:41 | MHC.SHP ---
Pre-Procedural Eval Section A Date of Service: 01/23/23 Section B Chief Complaint: Anal fistula Details of Present Illness: has persistent perianal drainage, swelling Relevant Family History (Specify if Yes): No Relevant Social History: None Present Medications: see Short Stay Collaborative assessment Medical History: Significant History (migraine, reflux ds, hiatal hernia) History of Previous Operations: Relevant previous surgery/procedure and date(s) (hx of sphincterotomy) Allergies: Allergies Allergy/AdvReac Type Severity Reaction Status Date / Time oxycodone [From PERCOCET] Allergy Intermediate Itching Verified 01/23/23 06:46 Review of Systems Sugical H&P ROS: Negative: Constitution, Cardiovascular, Respiratory, Neurological, Psychiatric, Hem-Onc, Allergic/Immunologic, Gastrointestinal, Genitourinary, Musculoskeletal, Integumentary, Endocrine and Eyes/Ears/Nose/Throat Exam Surgical H&P Exam: Normal: HEENT, Normal: Heart, Normal: Lungs, Normal: Extremities, Normal: Abdomen, Normal: Skin and Normal: Neurological Plan Diagnosis/Plan: Unchanged I have reviewed the history and physical and performed a pertinent physical examination on my patient. No changes have occurred unless specified. Time Spent With Patient Time: Total time managing care of this patient today ____ minutes.
--- NOTE | 2023-01-23 09:04 | W.PM.OPN ---
Operative Note Operative Note Date of Service: 01/23/23 Narrative: Preop Diagnosis: Anal fistula Postop diagnosis: Anal fistula Procedure: Exam under anesthesia, fistulotomy Surgeon: Rogelio Price MD The patient is a 48 year female, with recurrent swelling and drainage from the left perianal area. She had a history of lateral internal sphincterotomy several months ago for an anal fissure Examination the office suggested an anal fistula on the left side. She understood the technique of exam under anesthesia, possible fistulotomy, possible seton placement. She was aware of the risks, benefits, and alternatives She was brought to the operating room. She was placed in prone mariama-knife position under general anesthesia via LMA. A surgical time-out was done. The patient received Cefotan 2 g IV preoperatively. The buttocks had been retracted with wide tape laterally. I infiltrated the perianal area with lidocaine 1%. Examination of the anal orifice revealed what appeared to be an external fistulous sinus on the left side, about 2.5 cm from the anal verge. I inserted the Ankur Garrido retractor and examined the anal canal circumferentially. Examination of the anal orifice did not reveal any lesions but there was note of an internal fistulous sinus at the dentate line just radial to the external fistulous opening. I passed a probe from the external fistulous opening and I was able to easily advance this all the way into the internal fistulous tract. This appeared to be superficial without involvement of the sphincter complex. Therefore proceeded to do fistulotomy by unroofing this area using electrocautery and opening up the entire fistulous tract. I cauterized the surface of the entire fistulous tract. There was no significant involvement of the sphincter complex. I re-examined the anal canal. There were no other lesions. There was no other internal sinus nor duration. I infiltrated the perianal area with Marcaine 0.5% for postop MADHURI. The procedure was then completed. The patient tolerated procedure well. There were no immediate complications. Initial and final counts of sponges and instruments were correct. Estimated blood loss was about 5 cc. The patient was extubated without difficulty and transferred to the recovery room with stable vital signs.
[2023-01-23 09:19] VITALS: BP 123/74; PULSE 51; RESP 14; TEMP 36.6; O2SAT 100
[2023-01-23 09:24] VITALS: BP 106/65; PULSE 65; RESP 14; O2SAT 99
[2023-01-23 09:29] VITALS: BP 103/57; PULSE 61; RESP 16; O2SAT 99
[2023-01-23 09:34] VITALS: BP 97/50; PULSE 53; RESP 16; O2SAT 99
[2023-01-23 09:47] VITALS: BP 99/53; PULSE 57; RESP 16; TEMP 36.2; O2SAT 99
== END 2023-01-23 10:18 | disposition home or self-care (01) ==
PROVIDERS: Nurse Practitioner; PCP Physician Assistant; Visit Provider Surgery
PROC: (CPT 46270; principal; 2023-01-23 08:40)
DX: K60.3 Anal fistula (principal); Z88.5 Allergy status to narcotic agent
CPT/HCPCS: 46270; 81025; J2795; J3010

== ENCOUNTER → 2023-01-23 06:21 | Outpatient (BNV) | payer BC, SELFPAY | PROVIDERS: PCP Physician Assistant; Visit Provider Surgery | DX: K60.3 Anal fistula (principal) | CPT/HCPCS: 46270 ==

== ENCOUNTER → 2023-02-07 12:49 | Outpatient (BNVA) | payer BC, SELFPAY | PROVIDERS: PCP Physician Assistant; Visit Provider Surgery ==

== ENCOUNTER 2023-02-08 08:56 | Outpatient (AMB) | payer BC, SELFPAY ==
--- NOTE | 2023-02-08 08:59 | A.OFFVIS_ITS ---
Intake Vital Signs 02/08/23 09:06 Weight 186 lb BP 111/67 Blood Pressure Location Rt brachial Position Sitting Pulse 58 Intake Visit Reasons: s/p EUA, seton Intake Note: This patient presents for a post-op assessment status post EUA, fistulotomy, possible seton. Patient denies complaints at this time. Stitch Separator Required: No Accompanied by: Self / Same As Patient Allergies oxycodone [From PERCOCET] Allergy (Intermediate, Verified 02/08/23 09:07) Itching HPI s/p EUA, seton HPI Details She had undergone fistulotomy in the operating room for an anal fistula last 01/23/2023. She tolerated procedure well. She currently denies significant complaints. She says she feels well overall and denies any drainage from the area. [facility] Medical History Anal fissure Anal fistula Annual physical exam Anxiety Atelectasis, right Atypical chest pain Barretts esophagus Biliary colic BMI 45.0-49.9, adult Cholelithiasis COVID-19 vaccine administered Depression Family history of adverse response to anesthesia in mother Foot pain, bilateral Generalized body aches Hiatal hernia History of insomnia Iron deficiency anemia Loss of transverse plantar arch of left foot Migraines Morbid obesity due to excess calories Obesity Personal history of COVID-19 Polyarthralgia Pre-op evaluation Preoperative examination Right flank pain Right low back pain RUQ abdominal pain Screening for diabetes mellitus (DM) Screening for hypercholesterolemia Screening for hypothyroidism Screening, anemia, deficiency, iron Shortness of breath Surgical History History of bunionectomy History of esophagogastroduodenoscopy (EGD) History of rectal surgery History of sleeve gastrectomy History of surgical procedure (~01/23/23) History of tonsillectomy and adenoidectomy Hx of gastric bypass Hx of hernia repair S/P laparoscopic cholecystectomy (11/09/21) S/P panniculectomy Family History Mother Diabetes Heart attack Father No problems noted. Brother No problems noted. Daughter No problems noted. 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 Cognitive needs: No Hearing needs: No Vision needs: Yes Review of Systems Const Denies chills and Denies fever(s) Card Denies chest pain at rest GI Denies abdominal pain Physical Exam Vital Signs: Last Vital Signs Pulse 58 02/08/23 09:06 BP 111/67 02/08/23 09:06 Const General: comfortable and no acute distress Resp Effort & Inspection: normal respiratory effort GI Other: Fistulotomy site is well healing, no evidence of any infection, no evidence of any recurrent induration or drainage at this time Assessment & Plan Assessment & Plan (1) Anal fistula: Code(s): K60.3 - Anal fistula Plan: Status post fistulotomy. She is doing very well. Her fistulotomy site is healing. There is no evidence of any recurrence or persistent induration or drainage. I advised her to continue doing hot Sitz baths. She can follow-up with us on a p.r.n. basis. Coding Level of Care Code Global (71685) Diagnoses Anal fistula K60.3
[2023-02-08 09:06] VITALS: BP 111/67; PULSE 58
== END 2023-02-08 09:16 | disposition home or self-care (01) ==
PROVIDERS: PCP Physician Assistant; Visit Provider Surgery
DX: K60.3 Anal fistula (principal)
CPT/HCPCS: 99024

== ENCOUNTER → 2023-02-08 08:56 | Outpatient (BNVA) | payer BC, SELFPAY | PROVIDERS: PCP Physician Assistant; Visit Provider Surgery ==

== ENCOUNTER 2023-02-22 14:48 | Outpatient (AMB) | payer BC, SELFPAY ==
--- NOTE | 2023-02-22 14:49 | A.OFFVIS_ITS ---
Intake VS Expanded 02/22/23 15:11 Height 5 ft 4 in Weight 181 lb 3.2 oz BMI 31.1 BP 112/70 Blood Pressure Location Rt brachial Blood Pressure Position Sitting Pulse 66 Pulse Source Pulse Oximeter Temp 97.6 F Temperature Source Temporal Artery Scan Pulse Oximetry 98 Oxygen Delivery Method Room Air Body Fat 71.2 Body Fat Percentage 39.3 Free Fat Mass 109.8 Muscle Mass 104.2 Visceral Mass 9.0 Water Mass 78.2 BMR 1,514 Intake Visit Reasons: (OV) PO LSG 06/06/22 Barrel Cap Setter Required: No Accompanied by: Self / Same As Patient Allergies oxycodone [From PERCOCET] Allergy (Intermediate, Verified 02/22/23 15:15) Itching Medication List - Last Reconciled 02/22/23 by Lisa Byrd PA-C bupropion HCl 150 mg PO QAM 90 days citalopram 40 mg PO DAILY docusate sodium (Colace) 100 mg PO BID inulin (Fiber Gummies) 2 grams PO BID lorazepam 1 mg PO BEDTIME sumatriptan succinate 100 mg PO BEDTIME PRN 30 days topiramate 50 mg PO BEDTIME 90 days zinc acetate (Galzin) 25 mg PO DAILY HPI HPI Comments History of Present Illness Details Pt is now 9 mos s/p LSG after GBP. 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 Pt has an anal fistulotomy last month and has been recovering form that. Has restarted Still 2 shakes and dinner meal - 2.5 -3 oz each of protein and vegetable. No fruit yet. Exercise - francia and exercise plans. Pt had started vitamin a and then had increase in her migraines, 3 days consecutively, stopped supplements and migraines stopped. [facility] Medical History Anal fissure Anal fistula Annual physical exam Anxiety Atelectasis, right Atypical chest pain Barretts esophagus Biliary colic BMI 45.0-49.9, adult Cholelithiasis COVID-19 vaccine administered Depression Family history of adverse response to anesthesia in mother Foot pain, bilateral Generalized body aches Hiatal hernia History of insomnia Iron deficiency anemia Loss of transverse plantar arch of left foot Migraines Morbid obesity due to excess calories Obesity Personal history of COVID-19 Polyarthralgia Pre-op evaluation Preoperative examination Right flank pain Right low back pain RUQ abdominal pain Screening for diabetes mellitus (DM) Screening for hypercholesterolemia Screening for hypothyroidism Screening, anemia, deficiency, iron Shortness of breath Surgical History History of bunionectomy History of esophagogastroduodenoscopy (EGD) History of rectal surgery History of sleeve gastrectomy History of surgical procedure (~01/23/23) History of tonsillectomy and adenoidectomy Hx of gastric bypass Hx of hernia repair S/P laparoscopic cholecystectomy (11/09/21) S/P panniculectomy Family History Mother Diabetes Heart attack Father No problems noted. Brother No problems noted. Daughter No problems noted. 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 Now exercising regularly again. No changes to meal plan other than addding 1-2 oz fruits per day fro regualr BM's and minerals Can not take vitamin A supplements - will increase her vitamin a through foods rich in vitamin a - and recheck with 12 month labs. Next appt at 12 months with labs, declined RD appt at this time. Asking about brachioplasty due to skin irritation bilaterally of upper arms. I spent 30 minutes in total with patient reviewing/updating records, examining the patient and counseling the patient on weight management as detailed above. Coding Level of Care Code Est Pt Level 4 (70161) Diagnoses
[2023-02-22 15:11] VITALS: BP 112/70; PULSE 66; TEMP 36.4; O2SAT 98; BMI 31.1
== END 2023-02-22 15:41 | disposition home or self-care (01) ==
PROVIDERS: PCP Physician Assistant; Visit Provider Physician Assistant
DX: E66.3 Overweight (principal); Z68.31 Body mass index [BMI] 31.0-31.9, adult; Z90.3 Acquired absence of stomach [part of]; Z98.84 Bariatric surgery status
CPT/HCPCS: 99214

== ENCOUNTER → 2023-02-22 14:48 | Outpatient (BNVA) | payer BC, SELFPAY | PROVIDERS: PCP Physician Assistant; Visit Provider Physician Assistant | DX: E66.9 Obesity, unspecified (principal); Z98.84 Bariatric surgery status; K76.0 Fatty (change of) liver, not elsewhere classified ==

== ENCOUNTER 2023-05-24 15:00 | Outpatient (AMB) | payer BC, SELFPAY ==
[2023-05-24 15:07] VITALS: BP 112/70; PULSE 65; O2SAT 100; BMI 33.0
--- NOTE | 2023-05-24 15:07 | MHC.PC.OV ---
Vital Signs 05/24/23 15:07 Height 5 ft 4 in Weight 192 lb BMI 33.0 BP 112/70 Blood Pressure Location Lt brachial Position Sitting Pulse 65 Pulse Source Pulse Oximeter Pulse Oximetry (%) 100 Oxygen Delivery Method Room Air Intake Visit Reasons: Pe Satellite Manager Required: No Accompanied by: Self / Same As Patient Allergies oxycodone [From PERCOCET] Allergy (Intermediate, Verified 05/24/23 15:19) Itching Medication List - Last Reconciled 05/24/23 by Abiel Verma PA-C bupropion HCl 150 mg PO QAM 90 days citalopram 40 mg PO DAILY docusate sodium (Colace) 100 mg PO BID inulin (Fiber Gummies) 2 grams PO BID lorazepam 1 mg PO BEDTIME sumatriptan succinate 100 mg PO BEDTIME PRN 30 days topiramate 50 mg PO BEDTIME 90 days zinc acetate (Galzin) 25 mg PO DAILY Tobacco use date assessed: 08/29/22 Dental Screening Dental Screen Date: 05/24/23 Did you have a dental visit in the last 12 months?: No Did you have a dental problem in the last 6 months where you did not have access to dental care?: No Was dental information given to patient?: Patient has dentist HPI Pe HPI Details Patient is a 48-year-old female here today for annual physical. Patient has a past medical history significant for obesity depression, migraines, anxiety, GERD. Major depressive disorder: Continues on mental health medications and feels she is stable with her depression. She does speak with a mental therapist and sees a psychiatrist. : Obesity: Has undergone periodic surgery. Has lost over 100 lb. Feeling much better. Continues to follow weight management program here in [place]. >. Rectal fissure: Was followed by general surgeon for rectal fissure that was repaired surgically. Her bowel movements have since been much better though recently has noted some mucus after she passes bowel. She has upcoming appointment with gastroenterology in anticipates a colonoscopy in near future. Vaccines: Up-to-date with tetanus vaccine, UTD with COVID . Declines COVID vaccine Mammogram: Done in March of 2023 BI-RADS 1, . Colon cancer screening: Has upcoming visit with GI next week. She is due for screening colonoscopy Hammer Smith: Has seen chemist at [facility]- recent Pap (2023) was negative Laboratory Tests 11/24/22 07:50 Creatinine 0.69 Cholesterol 151 TSH 2.04 [facility] Medical History (Updated 05/28/23 @ 08:06 by Abiel Verma PA-C) Annual physical exam Anal fistula Anal fissure Iron deficiency anemia Barretts esophagus Pre-op evaluation Right low back pain Polyarthralgia Atelectasis, right Right flank pain Personal history of COVID-19 Hiatal hernia Obesity Atypical chest pain Biliary colic Cholelithiasis Foot pain, bilateral Loss of transverse plantar arch of left foot RUQ abdominal pain Generalized body aches COVID-19 vaccine administered Family history of adverse response to anesthesia in mother History of insomnia Depression Anxiety BMI 45.0-49.9, adult Morbid obesity due to excess calories Preoperative examination Shortness of breath Screening, anemia, deficiency, iron Screening for hypercholesterolemia Screening for hypothyroidism Screening for diabetes mellitus (DM) Migraines Surgical History History of surgical procedure (~01/23/23) History of rectal surgery History of sleeve gastrectomy S/P laparoscopic cholecystectomy (11/09/21) History of esophagogastroduodenoscopy (EGD) History of tonsillectomy and adenoidectomy History of bunionectomy Hx of hernia repair S/P panniculectomy Hx of gastric bypass Family History Mother Diabetes Heart attack Father No problems noted. Brother No problems noted. Daughter No problems noted. 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 Santi Johns, Nanda Vanegas, Uriah Sterling and colleagues, with an educational suellen from [employer]. Review of Systems Const Denies body aches, Denies chills, Denies excessive sweating, Denies fatigue, Denies fever(s) and Denies headache(s) Eyes Denies blurry vision ENT Denies dysphagia, Denies vertigo, Denies dizziness, Denies headache(s), Denies hearing loss and Denies tinnitus Card Denies chest pain, Denies chest pain with activity, Denies syncope, Denies irregular heart rhythm and Denies dyspnea Resp Denies chest congestion, Denies cough, Denies hemoptysis, Denies dyspnea and Denies wheezing GI Denies abdominal pain, Denies melena, Denies hematochezia, Denies coffee ground emesis, Denies dysphagia, Denies diarrhea, Denies nausea and Denies vomiting Denies urinary frequency, Denies dysuria, Denies urinary hesitancy and Denies urinary urgency Musc Denies arthralgias, Denies limited range of motion, Denies muscle cramps and Denies muscle weakness Skin/Breast Denies rash and Denies skin ulcer Neuro Denies Abnormal speech present, Denies confusion, Denies vertigo, Denies dizziness, Denies syncope, Denies headache(s), Denies memory loss and Denies seizure-like activity Psych Denies anxiety, Denies confusion, Denies depression, Denies memory loss, Denies panic attacks and Denies paranoia Endo Denies excessive sweating, Denies fatigue, Denies flushing, Denies polydipsia and Denies polyuria Aller/Immun Denies wheezing Physical exam (Primary Care) Vital Signs: Last Vital Signs Pulse 65 05/24/23 15:07 BP 112/70 05/24/23 15:07 Pulse Ox 100 05/24/23 15:07 Oxygen Delivery Method Room Air 05/24/23 15:07 BMI result Body Mass Index 33.0 BMI Assessment/Plan discussion: High Tobacco/Smoking Status: Tobacco use Status Tobacco use date assessed 08/29/22 05/24/23 15:08 Patient Tobacco Use Status Former Tobacco user 05/24/23 15:28 Tobacco use type Cigarette 05/24/23 15:28 Thrive Assessment: Date of Thrive Assessment Date Thrive assessed 08/29/22 05/24/23 15:08 Const Other: Obese-though weight loss noted General: cooperative, comfortable, no acute distress, alert and awake; No confusion Orientation/consciousness: oriented to person, oriented to place, patient oriented x3 and No confusion HENMT Head: Yes normocephalic Ears: external ears normal and TM's normal bilaterally Face and sinus: No sinus tenderness Mouth: Normal oral and palatal mucosa present and tongue normal Teeth and gingiva: dentition normal and gingiva normal Throat: Yes posterior oropharynx normal, Yes tonsils normal and Yes uvula midline Eyes Conjunctivae: conjunctivae normal Sclerae: sclerae normal Pupils: Equal, round and reactive pupils present EOM: EOMs intact bilaterally Direct Ophthalmoscopy: No no photophobia Neck Neck: Yes no lymphadenopathy, No tender and Yes no JVD Thyroid: Thyroid normal Carotids: no bruits Chest Chest palpation & inspection: no tenderness Resp Effort & Inspection: normal respiratory effort, no audible wheezes, not labored and no stridor Auscultation: no crackles, no rales, no rhonchi and no wheezes Cardio Jugular venous distension: no JVD Rate: regular rate, not bradycardic and not tachycardic Rhythm: regular rhythm Bruits: no carotid bruits Peripheral pulses: Peripheral pulses 2+ throughout GI Inspection: Yes normal to inspection, No abdominal wall ecchymosis and No visible herniation Palpation (GI): Soft to palpation, nontender, no guarding, not rigid and No hepatosplenomegaly present Auscultation: normoactive bowel sounds General: Yes no CVA tenderness Back/Spine/Pelvis Back: no CVA tenderness and No back tenderness Cervical Spine: cervical ROM normal Thoracic/Lumbar Spine: thoracic and lumbar spine normal to inspection, straight leg raise negative bilaterally, No thoraco-lumbar ROM limited and No lumbar spinal tenderness Skin Lesions: no lesions Rashes: no rashes Wounds: no wounds Neuro General: oriented to person, oriented to place, patient oriented x3, CN's II-XI intact bilaterally and No confusion Cranial nerves: Yes Equal, round and reactive pupils present and Yes Normal accommodation reflex present Cognition (Neuro): normal cognition Speech: No Abnormal speech present Gait exam (Neuro): Normal gait present Motor exam (neuro): 5/5 motor strength present throughout Extrem Right upper extremity: full ROM; no cyanosis Left upper extremity: full ROM; no cyanosis Right lower extremity: no edema Left lower extremity: no edema Psych Appearance: grossly normal Mental Status: mental status grossly normal Affect: normal affect Attitude: cooperative Thought process: Normal thought process present Assessment and Plan Assessment & Plan (1) Annual physical exam: Code(s): Z00.00 - Encounter for general adult medical examination without abnormal findings (2) S/P laparoscopic sleeve gastrectomy: Comment: May 2022 Code(s): Z98.84 - Bariatric surgery status Plan: Continues to follow [place] weight management program. She has lost a significant amount of weight since her 2nd bariatric surgery. Has been following bariatric diet and exercising quite often. (3) Obesity: Code(s): E66.9 - Obesity, unspecified Qualifiers: Body mass index: BMI 33.0-33.9 Obesity classification: adult class 1 (BMI 30 - 34.9) Obesity type: due to excess calories Serious obesity comorbidity presence: without serious comorbidity Qualified Code(s): E66.09 - Other obesity due to excess calories; Z68.33 - Body mass index [BMI] 33.0-33.9, adult Plan: BMI at 33. Will continue working on her specialized bariatric diet and continue being physically active to lose more weight. (4) MDD (major depressive disorder), recurrent episode, moderate: Code(s): F33.1 - Major depressive disorder, recurrent, moderate Plan: Patient continues to follow a mental health therapist and a med provider. She feels her mental health is fairly stable on her current doses of mental health medication at this time. Coding Level of Care Code Est Pt Prev Care 40-64y(77435) Diagnoses Annual physical exam Z00.00 S/P laparoscopic sleeve gastrectomy Z98.84 Class 1 obesity due to excess calories without serious comorbidity with body mass index (BMI) of 33.0 to 33.9 in adult E66.09; Z68.33 Body mass index: BMI 33.0-33.9 Obesity classification: adult class 1 (BMI 30 - 34.9) Obesity type: due to excess calories Serious obesity comorbidity presence: without serious comorbidity MDD (major depressive disorder), recurrent episode, moderate F33.1
== END 2023-05-24 15:45 | disposition home or self-care (01) ==
PROVIDERS: PCP Physician Assistant; Visit Provider Physician Assistant
DX: Z00.00 Encounter for general adult medical examination without abnormal findings (principal); E66.09 Other obesity due to excess calories; F33.1 Major depressive disorder, recurrent, moderate; Z68.33 Body mass index [BMI] 33.0-33.9, adult; Z98.84 Bariatric surgery status
CPT/HCPCS: 99396

== ENCOUNTER 2023-06-19 08:24 | Outpatient (AMB) | payer BC, SELFPAY ==
--- NOTE | 2023-06-19 08:26 | MHC.OFFVIS ---
Intake Vital Signs 06/19/23 08:30 Height 5 ft 4 in Weight 198 lb 6.656 oz BMI 34.1 BP 116/70 Blood Pressure Location Lt brachial Position Sitting Pulse 60 Intake Visit Reasons: colonoscopy screening Intake Note: Colleen presents in the office as a colonoscopy screening. CC: She states that she was having surgeries for fistulas and fissures and she was having puss when she had a BM and she did have a physical with her PCP but they did not really examine her. Lay Out And Detail Drafter Required: No Allergies oxycodone [From PERCOCET] Allergy (Intermediate, Verified 06/19/23 08:31) Itching Medication List - Last Reconciled 06/19/23 by Ileana Barba PA-C bupropion HCl 150 mg PO QAM 90 days citalopram 40 mg PO DAILY docusate sodium (Colace) 100 mg PO BID inulin (Fiber Gummies) 2 grams PO BID lorazepam 1 mg PO BEDTIME sumatriptan succinate 100 mg PO BEDTIME PRN 30 days topiramate 50 mg PO BEDTIME 90 days zinc acetate (Galzin) 25 mg PO DAILY HPI HPI Comments History of Present Illness Details A 48 y/o female index screening Last year had a gastric by pass- revision [id number]/3083-[id number] shakes- Anal fissure/ [id number] well- she has a mucous like discharge- She has mucous like-intermittently with BM, no odor, no pain or blood-uses miralax as need- Appetite is good- she has had no issues, no heartburn no epigastric pain-she feels well Bowels normal with exception of occasional noted mucous-no other symptoms She states that she is not worried as when she had previous colon issues there were other symptoms to include pain bleeding etcetera, however she is not having any of these at this time No cardiac or respiratory No nausea, vomiting, hematemesis, hematochezia fever or chills [facility] Medical History (Updated 06/19/23 @ 10:32 by Ileana Barba PA-C) Annual physical exam Anal fistula Anal fissure Iron deficiency anemia Barretts esophagus Pre-op evaluation Right low back pain Polyarthralgia Atelectasis, right Right flank pain Personal history of COVID-19 Hiatal hernia Obesity Atypical chest pain Biliary colic Cholelithiasis Foot pain, bilateral Loss of transverse plantar arch of left foot RUQ abdominal pain Generalized body aches COVID-19 vaccine administered Family history of adverse response to anesthesia in mother History of insomnia Depression Anxiety BMI 45.0-49.9, adult Morbid obesity due to excess calories Preoperative examination Shortness of breath Screening, anemia, deficiency, iron Screening for hypercholesterolemia Screening for hypothyroidism Screening for diabetes mellitus (DM) Migraines Surgical History History of surgical procedure (~01/23/23) History of rectal surgery History of sleeve gastrectomy S/P laparoscopic cholecystectomy (11/09/21) History of esophagogastroduodenoscopy (EGD) History of tonsillectomy and adenoidectomy History of bunionectomy Hx of hernia repair S/P panniculectomy Hx of gastric bypass Family History Mother Diabetes Heart attack Father No problems noted. Brother No problems noted. Daughter No problems noted. 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 Cognitive needs: No Hearing needs: No Vision needs: Yes Review of Systems Const All systems reviewed & are unremarkable except as noted in HPI and below Card Denies chest pain and Denies dyspnea Resp Denies dyspnea Physical Exam Vital Signs: Last Vital Signs Pulse 60 06/19/23 08:30 BP 116/70 06/19/23 08:30 BMI result Body Mass Index 34.1 Const General: cooperative, healthy appearing, comfortable and no acute distress Orientation/consciousness: patient oriented x3 Limitations: no limitations Eyes Sclerae: sclerae normal Resp Effort & Inspection: normal respiratory effort and able to speak in complete sentences Auscultation: clear to auscultation bilaterally, no rhonchi and no wheezes Cardio Rate: regular rate Rhythm: regular rhythm Heart sounds: S1 normal heart sound present and S2 normal heart sound present GI Palpation (GI): Soft to palpation and nontender Auscultation: normal bowel sounds Skin General skin exam: no rashes or lesions noted Neuro General: patient oriented x3 Extrem General: Yes full ROM Psych Appearance: grossly normal and well kempt Mental Status: mental status grossly normal Speech and movement: Normal speech and movement present and Clear speech present Affect: normal affect Attitude: cooperative Thought process: Normal thought process present Thought content: Normal thought content present Insight: Good insight present (Psych) Judgement: Good judgement present (Psych) Assessment & Plan Assessment & Plan (1) Colon cancer screening: Code(s): Z12.11 - Encounter for screening for malignant neoplasm of colon Plan: index screening MG prep (2) Anal fistula: Comment: History, with Dr. Galarza Code(s): K60.3 - Anal fistula (3) Anal fissure: Comment: Reviewed symptoms, small amount of mucus noted intermittently in the stool no other symptoms- Can be normal, however she will continue to monitor any changes she will report Code(s): K60.2 - Anal fissure, unspecified Plan: Small amount of mucus is not worrisome, no other symptoms Plan index screening MG prep Orders: Orders Colonoscopy - GI Use Only Today K60.2 - Anal fissure, unspecified, Z12.11 - Encounter for screening for malignant neoplasm of colon Medications: New polyethylene glycol 3350 (Miralax) Take as directed by mouth the day before your procedure. 238 grams PO ONCE 1 day PRN 238 grams 0RF laxative effect bisacodyl (Dulcolax (bisacodyl)) Day before procedure, prep day Take 4 tablets by mouth upon awakening followed by large glass of water 20 mg (4 x 5 mg) PO ONCE 1 day 4 tabs 0RF colonoscopy prep Z12.11 - Encounter for screening for malignant neoplasm of colon Patient Instructions: Pleasant 48-year-old female history of gastric bypass, anal fissure and fistula referred for index screening She will report increase in symptoms return given her previous history She will be scheduled for screening colonoscopy discussed procedure, rare risk need for escorted due to anesthesia MG prep, reviewed literature Encouraged to call with any questions or concerns Appreciate the opportunity assist in the care this patient Coding Level of Care Code New Pt Level 3 (16657) Diagnoses Colon cancer screening Z12.11 Anal fistula K60.3 Anal fissure K60.2 Time Spent (min) 30
[2023-06-19 08:30] VITALS: BP 116/70; PULSE 60; BMI 34.1
== END 2023-06-19 09:24 | disposition home or self-care (01) ==
PROVIDERS: PCP Physician Assistant; Visit Provider Physician Assistant
DX: Z01.818 Encounter for other preprocedural examination (principal); Z12.11 Encounter for screening for malignant neoplasm of colon; K60.3 Anal fistula; K60.2 Anal fissure, unspecified
CPT/HCPCS: S0285

== ENCOUNTER → 2023-06-19 08:24 | Outpatient (BNVA) | payer BC, SELFPAY | PROVIDERS: PCP Physician Assistant; Visit Provider Physician Assistant ==

== ENCOUNTER 2023-07-20 09:00 | Outpatient (AMB) | payer BC, SELFPAY ==
--- NOTE | 2023-07-20 09:09 | MHC.OFFVISWM ---
Intake VS Expanded 07/20/23 09:20 Height 5 ft 4 in Weight 190 lb BMI 32.6 Intake Visit Reasons: TV 1YR PO LSG 06/06/22 Allergies oxycodone [From PERCOCET] Allergy (Intermediate, Verified 06/19/23 08:31) Itching Medication List - Last Reconciled 07/20/23 by Lisa Byrd PA-C bisacodyl (Dulcolax (bisacodyl)) 20 mg (4 x 5 mg) PO ONCE 1 day bupropion HCl 150 mg PO QAM 90 days citalopram 40 mg PO DAILY inulin (Fiber Gummies) 2 grams PO BID lorazepam 1 mg PO BEDTIME polyethylene glycol 3350 (Miralax) 238 grams PO ONCE PRN 1 day sumatriptan succinate 100 mg PO BEDTIME PRN 30 days topiramate 50 mg PO BEDTIME 90 days HPI HPI Comments History of Present Illness Details Pt is now 14 months s/p LSG revision. Training for [employer] now. Lots of stress at work. Exercise - 3-5 times per week. Treadmill but now Meal plan - 4:1 shakes 2 per day and dinner of 3-4 oz chicken and 3-4 oz vegetables. ocassional popcorn. Post op complications: none ALESSANDRA: never DM: never HTN: never Hyperlipidemia: never GERD: 0, Satisfaction with present condition - satisfied [facility] Medical History Annual physical exam Anal fistula Anal fissure Iron deficiency anemia Barretts esophagus Pre-op evaluation Right low back pain Polyarthralgia Atelectasis, right Right flank pain Personal history of COVID-19 Hiatal hernia Obesity Atypical chest pain Biliary colic Cholelithiasis Foot pain, bilateral Loss of transverse plantar arch of left foot RUQ abdominal pain Generalized body aches COVID-19 vaccine administered Family history of adverse response to anesthesia in mother History of insomnia Depression Anxiety BMI 45.0-49.9, adult Morbid obesity due to excess calories Preoperative examination Shortness of breath Screening, anemia, deficiency, iron Screening for hypercholesterolemia Screening for hypothyroidism Screening for diabetes mellitus (DM) Migraines Surgical History History of surgical procedure (~01/23/23) History of rectal surgery History of sleeve gastrectomy S/P laparoscopic cholecystectomy (11/09/21) History of esophagogastroduodenoscopy (EGD) History of tonsillectomy and adenoidectomy History of bunionectomy Hx of hernia repair S/P panniculectomy Hx of gastric bypass Family History Mother Diabetes Heart attack Father No problems noted. Brother No problems noted. Daughter No problems noted. 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 No significant weight loss since February. Excellent meal plan - will get post op labs done now. 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 Needs an increasing intenstiy plan of 5d/ week. Will try to exercise dawson at home before her stressful and long work day. Next appt with me in 6 weeks, encouraged weekly texts. Patient is still obese and is not considered stable at this time. I spent 30 minutes in total speaking with the patient via video conference counseling , reviewing records and charting in patients chart. . (2) Hx of gastric bypass: Comment: 2001-[facility] - OPEN Code(s): Z98.84 - Bariatric surgery status Plan: see above Orders: Orders Insulin Today Z98.84 - Bariatric surgery status Lipid Panel Today Z98.84 - Bariatric surgery status IRON PROFILE Today Z98.84 - Bariatric surgery status Vitamin B1 Today Z98.84 - Bariatric surgery status Vitamin A Today Z98.84 - Bariatric surgery status TSH reflex Free T4 Today Z98.84 - Bariatric surgery status Ferritin Today Z98.84 - Bariatric surgery status Vitamin D 25-OH Total Today Z98.84 - Bariatric surgery status Hemoglobin A1c Today Z98.84 - Bariatric surgery status Complete Blood Count Auto Diff Today Z98.84 - Bariatric surgery status Comprehensive Met. Panel Today Z.84 - Bariatric surgery status Vitamin B12 and Folate Today Z.84 - Bariatric surgery status Zinc Today Z98.84 - Bariatric surgery status C Reactive Protein Today Z98.84 - Bariatric surgery status Telehealth Telehealth Location of provider rendering services: practice address Location of patient: address on file Patient Identification confirmed using: Name, : Yes Telehealth method: video Patient verbally consented to treatment: Yes Patient verbally consented to billing insurance company: Yes Patient informed of any privacy concerns related to visit: Yes Coding Level of Care Code Tele Est Pt Level 4 (87385) Diagnoses S/P laparoscopic sleeve gastrectomy Z.84 Hx of gastric bypass Z84
[2023-07-20 09:20] VITALS: BMI 32.6
== END 2023-07-20 09:30 | disposition home or self-care (01) ==
LOC: HO.HBS 09:28
PROVIDERS: PCP Physician Assistant; Visit Provider Physician Assistant
DX: E66.9 Obesity, unspecified (principal); Z68.32 Body mass index [BMI] 32.0-32.9, adult; Z90.3 Acquired absence of stomach [part of]; Z98.84 Bariatric surgery status
CPT/HCPCS: 99214

== ENCOUNTER → 2023-07-20 09:00 | Outpatient (BNVA) | payer BC, SELFPAY | PROVIDERS: PCP Physician Assistant; Visit Provider Physician Assistant | DX: Z98.84 Bariatric surgery status (principal) ==

== ENCOUNTER 2023-09-10 09:57 | Outpatient (REF) | payer BC, SELFPAY ==
[2023-09-10 10:53] LABS: Hematocrit 37.3 % (37.0-47.0); Hemoglobin 11.6 g/dl (12.0-16.0); Mean Corpuscular HGB Conc 31.1 g/dl (31.0-35.0); Mean Corpuscular Hemoglobin 26.2 pg (27.0-33.0); Mean Corpuscular Volume 84.2 fL (80.0-98.0); Mean Platelet Volume 11.1 fL (9.4-12.3); Platelet Count 258 X10*3/uL (160-400); Red Blood Count 4.43 X10*6/uL (4.20-5.50); Red Cell Distribution Width 15.8 % (11.0-16.0); White Blood Count 4.7 X10*3/uL (4.8-10.8)
[2023-09-10 11:23] LABS: Alanine Aminotransferase 69 U/L (0-31); Albumin Level 4.1 g/dL (3.5-5.0); Alkaline Phosphatase 97 U/L (39-117); Anion Gap 12 (12-20); Aspartate Amino Transferase 38 U/L (5-31); Bilirubin Direct 0.3 mg/dL (0.0-0.5); Bilirubin Total 0.9 mg/dL (0.0-1.0); Blood Urea Nitrogen 9 mg/dL (9-16); Calcium 9.2 mg/dL (8.4-10.2); Carbon Dioxide 21 mmol/L (22-29); Chloride 112 mmol/L (96-108); Estimated Glomerular Filt Rate > 60; Glucose Random 146 mg/dL (60-115); Potassium 3.8 mmol/L (3.3-5.1); Sodium 141 mmol/L (135-145)
[2023-09-10 14:14] LABS: Leukocytes Stool Qualitative NEGATIVE (NEGATIVE)
== END 2023-09-10 09:58 | disposition home or self-care (01) ==
LOC: HO.LAB 09:57
PROVIDERS: PCP Physician Assistant; Visit Provider Physician Assistant
DX: R19.7 Diarrhea, unspecified (principal)
CPT/HCPCS: 36415; 80048; 80076; 85027; 87015; 87207; 87329; 89055

== ENCOUNTER 2023-09-13 10:30 | Outpatient (AMB) | payer BC, SELFPAY ==
--- NOTE | 2023-09-13 10:34 | A.OFFVIS_ITS ---
Intake VS Expanded 09/13/23 10:38 Height 5 ft 4 in Weight 197 lb BMI 33.8 Intake Visit Reasons: TV PO LSG 06/06/22 Allergies oxycodone [From PERCOCET] Allergy (Intermediate, Verified 06/19/23 08:31) Itching Medication List - Last Reconciled 09/13/23 by Lisa Byrd PA-C bupropion HCl 150 mg PO QAM 90 days citalopram 40 mg PO DAILY inulin (Fiber Gummies) 2 grams PO BID lorazepam 1 mg PO BEDTIME polyethylene glycol 3350 (Miralax) 238 grams PO ONCE PRN 1 day sumatriptan succinate 100 mg PO BEDTIME PRN 30 days topiramate 50 mg PO BEDTIME 90 days HPI HPI Comments History of Present Illness Details Pt is now 15 months s/p revision of LSG. Has been ill recently . Exercise - joined a [employer] to train for marathon. Now does treadmill, weights and stair stepper. Meal plan 9am 4:1 shakes with Fairlife 12pm- same shake 2pm - skinny pop 5pm - chicken 4 oz and veg 4 oz, skinny rice - konjac with tapioca PFSH Medical History Annual physical exam Anal fistula Anal fissure Iron deficiency anemia Barretts esophagus Pre-op evaluation Right low back pain Polyarthralgia Atelectasis, right Right flank pain Personal history of COVID-19 Hiatal hernia Obesity Atypical chest pain Biliary colic Cholelithiasis Foot pain, bilateral Loss of transverse plantar arch of left foot RUQ abdominal pain Generalized body aches COVID-19 vaccine administered Family history of adverse response to anesthesia in mother History of insomnia Depression Anxiety BMI 45.0-49.9, adult Morbid obesity due to excess calories Preoperative examination Shortness of breath Screening, anemia, deficiency, iron Screening for hypercholesterolemia Screening for hypothyroidism Screening for diabetes mellitus (DM) Migraines Surgical History History of surgical procedure (~01/23/23) History of rectal surgery History of sleeve gastrectomy S/P laparoscopic cholecystectomy (11/09/21) History of esophagogastroduodenoscopy (EGD) History of tonsillectomy and adenoidectomy History of bunionectomy Hx of hernia repair S/P panniculectomy Hx of gastric bypass Family History Mother Diabetes Heart attack Father No problems noted. Brother No problems noted. Daughter No problems noted. 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 Cognitive needs: No Hearing needs: No Vision needs: Yes Assessment & Plan Assessment & Plan (1) Obesity: Code(s): E66.9 - Obesity, unspecified Qualifiers: Obesity type: due to excess calories Obesity classification: adult class 1 (BMI 30 - 34.9) Serious obesity comorbidity presence: without serious comorbidity Body mass index: BMI 33.0-33.9 Qualified Code(s): E66.09 - Other obesity due to excess calories; Z68.33 - Body mass index [BMI] 33.0-33.9, adult Plan: Will stop Fairlife milk and have UAM with both shakes mid afternoon- snack to replace protein - protein bar or bariatric serving of Quest protein chips or 1 reduced fat cheese stick and raw vegetables. Continue with running training. Will get her post op done this week. Next aptp 3 months with PA. Patient is still obese and is not considered stable at this time. I spent 28 minutes in total speaking with the patient via video conference counseling , reviewing records and charting in patients chart. . (2) Hx of gastric bypass: Comment: 2001-[facility] - OPEN Code(s): Z98.84 - Bariatric surgery status Plan: revised May 2022 Telehealth Telehealth Location of provider rendering services: practice address Location of patient: address on file Patient Identification confirmed using: Name, : Yes Telehealth method: video Patient verbally consented to treatment: Yes Patient verbally consented to billing insurance company: Yes Patient informed of any privacy concerns related to visit: Yes Coding Level of Care Code Tele Est Pt Level 4 (95763) Diagnoses Class 1 obesity due to excess calories without serious comorbidity with body mass index (BMI) of 33.0 to 33.9 in adult E66.09; Z68.33 Obesity type: due to excess calories Obesity classification: adult class 1 (BMI 30 - 34.9) Serious obesity comorbidity presence: without serious comorbidity Body mass index: BMI 33.0-33.9 Hx of gastric bypass Z98.84
[2023-09-13 10:38] VITALS: BMI 33.8
== END 2023-09-13 10:54 | disposition home or self-care (01) ==
LOC: HO.HBS 10:45
PROVIDERS: PCP Physician Assistant; Visit Provider Physician Assistant
DX: E66.09 Other obesity due to excess calories (principal); Z68.33 Body mass index [BMI] 33.0-33.9, adult; Z90.3 Acquired absence of stomach [part of]; Z98.84 Bariatric surgery status
CPT/HCPCS: 99213

== ENCOUNTER → 2023-09-13 10:30 | Outpatient (BNVA) | payer BC, SELFPAY | PROVIDERS: PCP Physician Assistant; Visit Provider Physician Assistant | DX: Z98.84 Bariatric surgery status (principal) ==

== ENCOUNTER 2023-09-14 06:22 | Outpatient (REF) | payer BC, SELFPAY ==
[2023-09-14 07:30] LABS: Basophils Percent Auto 0.3 % (0-2); Eosinophils Absolute Auto 0.1 X10*3/uL (0.0-0.4); Eosinophils Percent Auto 1.3 % (0-4); Hematocrit 35.4 % (37.0-47.0); Hemoglobin 11.1 g/dl (12.0-16.0); Imm Gran Abs Auto 0.01 X10*3/uL (0.00-0.03); Imm Gran Pct Auto 0.3 % (0.0-0.4); Lymphocytes Percent Auto 25.3 % (20-40); MANUAL DIFF FLAG SCAN; Mean Corpuscular HGB Conc 31.4 g/dl (31.0-35.0); Mean Corpuscular Volume 82.9 fL (80.0-98.0); Mean Platelet Volume 10.8 fL (9.4-12.3); Monocytes Absolute Auto 0.4 X10*3/uL (0.1-1.2); Monocytes Percent Auto 10.5 % (2-11); Neutrophils Absolute Auto 2.5 x10*3/uL (2.0-8.3); Neutrophils Percent Auto 62.3 % (45-73); Platelet Count 245 X10*3/uL (160-400); Red Blood Count 4.27 X10*6/uL (4.20-5.50); Red Cell Distribution Width 15.6 % (11.0-16.0); SCAN SMEAR FLAG 1
[2023-09-14 07:42] LABS: Estimated Average Glucose 97 mg/dL
[2023-09-14 07:53] LABS: SLIDE REVIEW VERIFIED
[2023-09-14 08:06] LABS: Alanine Aminotransferase 38 U/L (0-31); Alkaline Phosphatase 71 U/L (39-117); Anion Gap 12 (12-20); Aspartate Amino Transferase 27 U/L (5-31); Bilirubin Total 0.5 mg/dL (0.0-1.0); Blood Urea Nitrogen 12 mg/dL (9-16); C Reactive Protein 1.26 mg/dL (< or = 0.50); Calcium 9.3 mg/dL (8.4-10.2); Carbon Dioxide 23 mmol/L (22-29); Chloride 110 mmol/L (96-108); Cholesterol 155 mg/dL (<200); Estimated Glomerular Filt Rate > 60; Glucose Random 89 mg/dL (60-115); HDL Cholesterol 72 mg/dL (>40); Iron 32 mcg/dL (30-160); LDL Cholesterol Calculated 70 mg/dL (<100); Percent Iron Saturation 8 % (15-50); Potassium 3.5 mmol/L (3.3-5.1); Sodium 141 mmol/L (135-145); Total Iron Binding Capacity 382 mcg/dL (228-428); Total Protein 6.9 g/dL (6.5-8.0); Triglycerides 69 mg/dL (<150); Unsaturated Iron Binding 350 ug/dL
[2023-09-14 08:26] LABS: Ferritin 9 ng/mL (10-250); Insulin 5 uU/mL (2-29); TSH reflex Free T4 2.32 uIU/mL (0.32-4.0); Vitamin D 25-OH Total 45.9 ng/mL (>30)
[2023-09-14 08:31] LABS: Folate 11.2 ng/mL (> or = 4.0); Vitamin B12 515 pg/mL (200-900)
[2023-09-18 00:23] LABS: Zinc 65 mcg/dL (60-130)
[2023-09-20 05:32] LABS: Vitamin A 36 mcg/dL (38-98)
[2023-09-21 06:17] LABS: Vitamin B1 16 nmol/L (8-30)
== END 2023-09-14 06:23 | disposition home or self-care (01) ==
LOC: HO.LAB 06:22
PROVIDERS: PCP Physician Assistant; Visit Provider Physician Assistant
DX: Z13.6 Encounter for screening for cardiovascular disorders (principal); Z98.84 Bariatric surgery status
CPT/HCPCS: 36415; 80053; 80061; 82306; 82607; 82728; 82746; 83036; 83525; 83540; 84425; 84443; 84590; 84630; 85025; 86140

== ENCOUNTER 2023-10-17 09:18 | Day surgery (SDC) | payer BC, SELFPAY ==
[2023-10-15 13:05] VITALS: BMI 33.8
--- NOTE | 2023-10-16 09:42 | HO.ANESPROP2 ---
Documented by User: Hermelinda Kim NP 10/16/23 09:43 HPI - Anesthesia Eval Consult details Narrative: 48yo F for Colonoscopy PMFSH Active Problems Active Problems: All Active Problems Diarrhea (Acute) MDD (major depressive disorder), recurrent episode, moderate (Acute) Colon cancer screening (Acute) Diaphragmatic hernia (Acute) Intra-abdominal adhesions (Acute) History of repair of hiatal hernia (Acute) S/P laparoscopic sleeve gastrectomy (Acute) Steatosis, liver (Acute) Hiatal hernia (Acute) Generalized anxiety disorder (Acute) Acid reflux (Acute) Migraines (Acute) Annual physical exam (Acute) Anal fistula (Acute) Obesity (Acute) Anal fissure (Acute) Hx of gastric bypass (Acute) Past Medical History Medical History Anal fistula Anal fissure Iron deficiency anemia Barretts esophagus Pre-op evaluation Right low back pain Polyarthralgia Atelectasis, right Right flank pain Personal history of COVID-19 Hiatal hernia Obesity Atypical chest pain Biliary colic Cholelithiasis Foot pain, bilateral Loss of transverse plantar arch of left foot RUQ abdominal pain Annual physical exam Generalized body aches Family history of adverse response to anesthesia in mother History of insomnia Depression Anxiety BMI 45.0-49.9, adult Morbid obesity due to excess calories Preoperative examination Shortness of breath Screening, anemia, deficiency, iron Screening for hypercholesterolemia Screening for hypothyroidism Screening for diabetes mellitus (DM) Migraines Family History Family History Mother Diabetes Heart attack Father No problems noted. Brother No problems noted. Daughter No problems noted. Family history of problems with anesthesia: No Surgical History Surgical History History of surgical procedure (~01/23/23) History of rectal surgery History of sleeve gastrectomy S/P laparoscopic cholecystectomy (11/09/21) History of esophagogastroduodenoscopy (EGD) History of tonsillectomy and adenoidectomy History of bunionectomy Hx of hernia repair S/P panniculectomy Hx of gastric bypass History of Problems with Anesthesia: No Social History Social History Housing: House Are you a primary director day care center to a significant other at home: No Do you presently have visiting nurse or other home services: No Alcohol intake: current Alcohol intake frequency: holidays/special occasions only Comment: Has dropped arches right now Patient Tobacco Use Status: Former Tobacco user Quit Date: 2017 Tobacco use type: Cigarette Years Smoked: 15 Second Hand Smoke Exposure: No service: No Current occupational status: employed 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 Cognitive needs: No Hearing needs: No Vision needs: Yes Meds Allergies Allergy/AdvReac Type Severity Reaction Status Date / Time oxycodone [From PERCOCET] Allergy Intermediate Itching Verified 06/19/23 08:31 Home Medications ?Medication ?Instructions ?Recorded ?Confirmed ?Last Taken ?Type citalopram 40 mg tablet 40 mg PO DAILY 09/20/20 10/15/23 06/05/22 07:00 History lorazepam 1 mg tablet 1 mg PO BEDTIME 11/22/20 10/15/23 06/05/22 20:00 History Exam Height,Weight and Vital Signs: Height 5 ft 4 in Weight 89.358 kg Pertinent Lab Results Pertinent Lab Results: Laboratory Tests 09/14/23 06:39 WBC 4.0 L Hgb 11.1 L Hct 35.4 L Plt Count 245 Sodium 141 Potassium 3.5 Chloride 110 H Carbon Dioxide 23 BUN 12 Creatinine 0.74 Assessment and Plan Assessment Anesthesia Assessment: Chart Reviewed Final Anesthetic Review Family History of Problems with Anesthesia: No History of Problems with Anesthesia: No Documented by User: Mark Garrido MD 10/17/23 09:47 [facility] Past Medical History Medical History Anal fistula Anal fissure Iron deficiency anemia Barretts esophagus Pre-op evaluation Right low back pain Polyarthralgia Atelectasis, right Right flank pain Personal history of COVID-19 Hiatal hernia Obesity Atypical chest pain Biliary colic Cholelithiasis Foot pain, bilateral Loss of transverse plantar arch of left foot RUQ abdominal pain Annual physical exam Generalized body aches Family history of adverse response to anesthesia in mother History of insomnia Depression Anxiety BMI 45.0-49.9, adult Morbid obesity due to excess calories Preoperative examination Shortness of breath Screening, anemia, deficiency, iron Screening for hypercholesterolemia Screening for hypothyroidism Screening for diabetes mellitus (DM) Migraines Family History Family History Mother Diabetes Heart attack Father No problems noted. Brother No problems noted. Daughter No problems noted. Surgical History Surgical History History of surgical procedure (~01/23/23) History of rectal surgery History of sleeve gastrectomy S/P laparoscopic cholecystectomy (11/09/21) History of esophagogastroduodenoscopy (EGD) History of tonsillectomy and adenoidectomy History of bunionectomy Hx of hernia repair S/P panniculectomy Hx of gastric bypass Social History Social History Housing: House Are you a primary director day care center to a significant other at home: No Do you presently have visiting nurse or other home services: No Alcohol intake: current Alcohol intake frequency: holidays/special occasions only Comment: Has dropped arches right now Patient Tobacco Use Status: Former Tobacco user Quit Date: 2017 Tobacco use type: Cigarette Years Smoked: 15 Second Hand Smoke Exposure: No service: No Current occupational status: employed 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 Cognitive needs: No Hearing needs: No Vision needs: Yes Meds Allergies Allergy/AdvReac Type Severity Reaction Status Date / Time oxycodone [From PERCOCET] Allergy Intermediate Itching Verified 06/19/23 08:31 Home Medications ?Medication ?Instructions ?Recorded ?Confirmed ?Last Taken ?Type citalopram 40 mg tablet 40 mg PO DAILY 09/20/20 10/15/23 06/05/22 07:00 History lorazepam 1 mg tablet 1 mg PO BEDTIME 11/22/20 10/15/23 06/05/22 20:00 History Exam Airway Mallampati Class: II TM Dist: >3cm Neck ROM: Full Loose/Missing/Broken Teeth: No Heart: rrr Lungs: cta b/l Assessment and Plan Assessment Anesthesia Assessment: Anesthesia Plan Discussed Final Anesthetic Review NPO: Yes ASA Class: II Final Preanesthetic Review: No Changes in Pt Med Stat, Meds/Allgs Chart Reviewed, Consent Obtained/Reviewed and Anes Risks/Benef Reviewed Patient Risk: Intermediate Procedure Risk: Intermediate Anesthetic Plan Anesthetic Plan: MAC: Disposition: Standard PACU
[2023-10-17 09:38] VITALS: BMI 34.6
[2023-10-17 09:52] VITALS: BP 107/67; PULSE 56; RESP 16; TEMP 36.4; O2SAT 100
[2023-10-17 10:03] LABS: UPreg QC Valid YES; Urine Pregnancy NEGATIVE (NEGATIVE)
[2023-10-17] MEDS: Lactated Ringers 1,000 ML 100 ML IVCONT (10:26)
--- NOTE | 2023-10-17 11:24 | MHC.SHP ---
Pre-Procedural Eval Section A - 24 Hr Update-Section A only Date of Service: 10/17/23 Section B - Complete if H&P > 30 days Chief Complaint: Encounter for screening for malignant neoplasm of Details of Present Illness: Annual physical exam Anal fistula Anal fissure Iron deficiency anemia Barretts esophagus Pre-op evaluation Right low back pain Polyarthralgia Atelectasis, right Right flank pain Personal history of COVID-19 Hiatal hernia Obesity Atypical chest pain Biliary colic Cholelithiasis Foot pain, bilateral Loss of transverse plantar arch of left foot RUQ abdominal pain Generalized body aches COVID-19 vaccine administered Family history of adverse response to anesthesia in mother History of insomnia Depression Anxiety BMI 45.0-49.9, adult Morbid obesity due to excess calories Preoperative examination Shortness of breath Screening, anemia, deficiency, iron Screening for hypercholesterolemia Screening for hypothyroidism Screening for diabetes mellitus (DM) Migraines Surgical History History of surgical procedure (~01/23/23) History of rectal surgery History of sleeve gastrectomy S/P laparoscopic cholecystectomy (11/09/21) History of esophagogastroduodenoscopy (EGD) History of tonsillectomy and adenoidectomy History of bunionectomy Hx of hernia repair S/P panniculectomy Hx of gastric bypass Allergies: Allergies Allergy/AdvReac Type Severity Reaction Status Date / Time oxycodone [From PERCOCET] Allergy Intermediate Itching Verified 06/19/23 08:31 Review of Systems Review of Systems Comment: Ten point ROS negative Exam Surgical H&P Exam: Normal: HEENT, Normal: Heart, Normal: Lungs, Normal: Extremities, Normal: Abdomen, Normal: Skin and Normal: Neurological Plan Diagnosis/Plan: Unchanged I have reviewed the history and physical and performed a pertinent physical examination on my patient. No changes have occurred unless specified. Time Spent With Patient Time: Total time managing care of this patient today ____ minutes.
--- NOTE | 2023-10-17 11:36 | P.OP_ITS ---
Operative Note Operative Note Date of Service: 10/17/23 Narrative: Procedure: Colonoscopy Indication: Screening Endoscopist: Aisha Sharp MD Anesthesia Provider: Lakisha Miranda CRNA Anesthesia type: MAC Instrument: Olympus [id number]-H190L Consent: Indication, risks vs benefits, and alternatives were discussed with the patient who gave written informed consent to proceed. EKG, pulse, pulse oximetry and blood pressure were monitored throughout the procedure. Please see anesthesia flowsheet. Procedure: The patient was brought to the procedure room and placed in the left lateral decubitus position. IV medications were administered by the anesthesia provider in attendance. A digital rectal exam was performed which was normal. The colonoscope was then inserted through the anus and advanced through the colon to the cecum at 75 cm,and terminal ileum. Appendiceal orifice and ileocecal valve were identified. Mucosa was carefully examined under high definition white light as the instrument was slowly withdrawn in a retrograde panoramic fashion. Retroflexion was performed in rectum. The procedure was not difficult. There were no immediate obvious complications. The quality of the prep was BBPS: 2+3+2 = adequate Withdrawal time 13 minutes. Limitations: No limitations. Findings: Mucosa: Normal to cecum and terminal ileum. Protruding lesions: * Medium internal hemorrhoids without stigmata of recent bleeding. Impression: 1. Normal colon and terminal ileum mucosa 2. Internal hemorrhoids Recommendations: -avoid straining and constipation -increase fiber intake -repeat colonoscopy for asymptomatic colorectal cancer screening in 10 years
[2023-10-17 12:07] VITALS: BP 88/49; PULSE 64; RESP 18; TEMP 36.1; O2SAT 100
[2023-10-17 12:28] VITALS: BP 111/57; PULSE 53; RESP 18; TEMP 36.1; O2SAT 100
== END 2023-10-17 12:48 | disposition home or self-care (01) ==
PROVIDERS: Nurse Practitioner; PCP Physician Assistant; Visit Provider Internal Medicine
PROC: 0DJD8ZZ Inspection of Lower Intestinal Tract, Via Natural or Artificial Opening Endoscopic (ICD-10-PCS; CPT 45378; principal; 2023-10-17 11:30)
DX: Z12.11 Encounter for screening for malignant neoplasm of colon (principal); K64.8 Other hemorrhoids; Z87.19 Personal history of other diseases of the digestive system; Z98.890 Other specified postprocedural states; Z98.84 Bariatric surgery status; Z79.899 Other long term (current) drug therapy; Z88.5 Allergy status to narcotic agent; Z87.891 Personal history of nicotine dependence
CPT/HCPCS: 45378; 81025; J2704

== ENCOUNTER → 2023-10-17 09:18 | Outpatient (BNV) | payer BC, SELFPAY | PROVIDERS: PCP Physician Assistant; Visit Provider Internal Medicine | DX: Z12.11 Encounter for screening for malignant neoplasm of colon (principal) | CPT/HCPCS: 45378 ==

== ENCOUNTER 2023-11-22 10:14 | Outpatient (AMB) | payer BC, SELFPAY ==
--- NOTE | 2023-11-22 10:12 | MHC.OFFVISWM ---
VS Expanded 11/22/23 10:28 Height 5 ft 4 in Intake Visit Reasons: TV PO LSG 06/06/22 Allergies oxycodone [From PERCOCET] Allergy (Intermediate, Verified 06/19/23 08:31) Itching Medication List - Last Reconciled 11/22/23 by RASHAAD Diaz bupropion HCl XL 150 mg PO QAM 90 days citalopram 40 mg PO DAILY inulin (Fiber Gummies) 2 grams PO BID iron,carbonyl-vitamin C 65 mg iron- 125 mg (Vitron-C) 1 tab PO BEDTIME lorazepam 1 mg PO BEDTIME polyethylene glycol 3350 (Miralax) 238 grams PO ONCE PRN 1 day sumatriptan succinate 100 mg PO BEDTIME PRN 30 days topiramate 50 mg PO BEDTIME 90 days vitamin A palmitate 3,000 mcg PO DAILY HPI Comments Details: This?is a?48?yo female who is s/p LSG 06/06/2022. Presents for 18 month post op visit. Weight at last visit on 09/13/2023 was 197 pounds with a BMI of 33.8, weight today is 202 pounds, representing a 5 pound weight gain with a BMI today of .? No complaints of nausea, emesis, abdominal pain or reflux, or constipation. Has a lot of job stress. Also taking 2 classes this semester which just finished. Exercise - joined a running club to train for marathon in [place] in July lately has been going to [facility] to walk on track due to less time Meal plan 9am 4:1 shake with U[facility]- but has still been doing Fairlife 12pm- same shake 2pm - protein bar or bariatric serving of [employer] protein chips or 1 reduced fat cheese stick and raw vegetables 5pm - chicken 4 oz and veg 4 oz, skinny rice - konjac with tapioca deviates sometimes on the weekends, eggs for breakfast PFSH Medical History Anal fistula Anal fissure Iron deficiency anemia Barretts esophagus Pre-op evaluation Right low back pain Polyarthralgia Atelectasis, right Right flank pain Personal history of COVID-19 Hiatal hernia Obesity Atypical chest pain Biliary colic Cholelithiasis Foot pain, bilateral Loss of transverse plantar arch of left foot RUQ abdominal pain Annual physical exam Generalized body aches Family history of adverse response to anesthesia in mother History of insomnia Depression Anxiety BMI 45.0-49.9, adult Morbid obesity due to excess calories Preoperative examination Shortness of breath Screening, anemia, deficiency, iron Screening for hypercholesterolemia Screening for hypothyroidism Screening for diabetes mellitus (DM) Migraines Surgical History History of surgical procedure (~01/23/23) History of rectal surgery History of sleeve gastrectomy S/P laparoscopic cholecystectomy (11/09/21) History of esophagogastroduodenoscopy (EGD) History of tonsillectomy and adenoidectomy History of bunionectomy Hx of hernia repair S/P panniculectomy Hx of gastric bypass Family History Mother Diabetes Heart attack Father No problems noted. Brother No problems noted. Daughter No problems noted. 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 Cognitive needs: No Hearing needs: No Vision needs: Yes Telehealth Telehealth Telehealth Platform: Telephone Location of provider rendering services: practice address Location of patient: address on file Patient Identification confirmed using: Name, : Yes Telehealth method: voice only Patient verbally consented to treatment: Yes Patient verbally consented to billing insurance company: Yes Patient informed of any privacy concerns related to visit: Yes Minutes spent on Phone/Video with Pt.: 15 Assessment & Plan Assessment & Plan (1) S/P laparoscopic sleeve gastrectomy: Comment: May 2022 Code(s): Z98.84 - Bariatric surgery status Category: Surgical (2) Obesity: Code(s): E66.9 - Obesity, unspecified Category: Medical Qualifiers: Obesity type: due to excess calories Obesity classification: adult class 1 (BMI 30 - 34.9) Serious obesity comorbidity presence: without serious comorbidity Body mass index: BMI 33.0-33.9 Qualified Code(s): E66.09 - Other obesity due to excess calories; Z68.33 - Body mass index [BMI] 33.0-33.9, adult Plan Pt knows she needs to get back on track with exercise, goal 2000 zaida/week. I encouraged her to reach out as she increased her running for race training if she felt she needed any meal plan adjustments to accomodate her level of activity. Recent labs reviewed, pt is taking prescribed supplements. RTC 3 months, provided pt with my cell phone # for any questions between appts. Patient is obese and is not considered stable at this time. I spent a total of 30 minutes reviewing/updating records, examining the patient and counseling the patient on weight management as detailed above.
== END 2023-11-22 10:32 | disposition home or self-care (01) ==
LOC: HO.HBS 10:14
PROVIDERS: PCP Physician Assistant; Referring Provider Physician Assistant; Visit Provider Physician Assistant Surgical
DX: E66.09 Other obesity due to excess calories (principal); Z68.33 Body mass index [BMI] 33.0-33.9, adult; Z90.3 Acquired absence of stomach [part of]; Z98.84 Bariatric surgery status
CPT/HCPCS: 99442

== ENCOUNTER → 2023-11-22 10:14 | Outpatient (BNVA) | payer BC, SELFPAY | PROVIDERS: PCP Physician Assistant; Visit Provider Physician Assistant Surgical | DX: Z98.84 Bariatric surgery status (principal); E66.09 Other obesity due to excess calories; Z68.33 Body mass index [BMI] 33.0-33.9, adult ==

== ENCOUNTER 2024-03-05 06:24 | Outpatient (REF) | payer BC, SELFPAY ==
[2024-03-05 07:41] LABS: Anion Gap 12 (12-20); Blood Urea Nitrogen 16 mg/dL (9-16); Calcium 9.8 mg/dL (8.4-10.2); Carbon Dioxide 24 mmol/L (22-29); Chloride 108 mmol/L (96-108); Estimated Glomerular Filt Rate > 60; Glucose Fasting 98 mg/dL (60-99); Magnesium 2.3 mg/dL (1.6-2.6); Potassium 4.1 mmol/L (3.3-5.1); Sodium 140 mmol/L (135-145)
[2024-03-06 16:04] LABS: Follicle Stimulating Hormone 40.1 mIU/mL
[2024-03-13 01:22] LABS: Estradiol Ultra Sensitive 32 pg/mL
== END 2024-03-05 06:25 | disposition home or self-care (01) ==
LOC: HO.LAB 06:24
PROVIDERS: Absent Provider Nurse Practitioner Women's Health; PCP Physician Assistant; Visit Provider Physician Assistant
DX: Z98.84 Bariatric surgery status (principal); M79.10 Myalgia, unspecified site; N95.1 Menopausal and female climacteric states
CPT/HCPCS: 36415; 80048; 82670; 83001; 83735

== ENCOUNTER 2024-03-18 09:55 | Outpatient (AMB) | payer BC, SELFPAY ==
--- NOTE | 2024-03-18 09:36 | MHC.OFFVISWM ---
Intake Visit Reasons: TELEPHONE PO LSG 06/06/22 Allergies oxycodone [From PERCOCET] Allergy (Intermediate, Verified 06/19/23 08:31) Itching Medication List - Last Reconciled 03/18/24 by RASHAAD Diaz bupropion HCl XL 150 mg PO QAM 90 days citalopram 40 mg PO DAILY inulin (Fiber Gummies) 2 grams PO BID iron,carbonyl-vitamin C 65 mg iron- 125 mg (Vitron-C) 1 tab PO BEDTIME lorazepam 1 mg PO BEDTIME polyethylene glycol 3350 (Miralax) 238 grams PO ONCE PRN 1 day scopolamine base 1 patch transdermal Q3D PRN 15 days sumatriptan succinate 100 mg PO BEDTIME PRN 30 days topiramate 50 mg PO BEDTIME 90 days vitamin A palmitate 3,000 mcg PO DAILY HPI Comments Details: This?is a?49?yo female who is s/p LSG 06/06/2022. Presents for 1 year 10 month post op visit. Weight at last visit on 11/22/2023 was 202 pounds, weight has increased since last visit but pt unsure how much, will weigh herself tmrw.? No complaints of nausea, emesis, abdominal pain or reflux, or constipation. Reports a lot of life stress/work stress, Present meal plan includes: Exercise - joined a running club to train for [place] in [place] in July goes to the gym 2x/week to do 2-3 miles, increasing running intervals long run on the weekends, last weekend did 9 miles planning to go to [employer] 1x/week Meal plan 9am 4:1 shake with UAM- but has still been doing Fairlife 12pm- same shake or low carb wrap with ham and cheese 2pm - protein bar or bariatric serving of Quest protein chips or 1 reduced fat cheese stick and raw vegetables 5pm - chicken 4 oz and veg 4 oz, skinny rice - konjac with tapioca deviates sometimes on the weekends, eggs for breakfast, almonds or popcorn for snack PFSH Medical History Anal fistula Anal fissure Iron deficiency anemia Barretts esophagus Pre-op evaluation Right low back pain Polyarthralgia Atelectasis, right Right flank pain Personal history of COVID-19 Hiatal hernia Obesity Atypical chest pain Biliary colic Cholelithiasis Foot pain, bilateral Loss of transverse plantar arch of left foot RUQ abdominal pain Annual physical exam Generalized body aches Family history of adverse response to anesthesia in mother History of insomnia Depression Anxiety BMI 45.0-49.9, adult Morbid obesity due to excess calories Preoperative examination Shortness of breath Screening, anemia, deficiency, iron Screening for hypercholesterolemia Screening for hypothyroidism Screening for diabetes mellitus (DM) Migraines Surgical History History of surgical procedure (~01/23/23) History of rectal surgery History of sleeve gastrectomy S/P laparoscopic cholecystectomy (11/09/21) History of esophagogastroduodenoscopy (EGD) History of tonsillectomy and adenoidectomy History of bunionectomy Hx of hernia repair S/P panniculectomy Hx of gastric bypass Family History Mother Diabetes Heart attack Father No problems noted. Brother No problems noted. Daughter No problems noted. 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 Cognitive needs: No Hearing needs: No Vision needs: Yes Telehealth Telehealth Telehealth Platform: Telephone Location of provider rendering services: other Location of patient: address on file Patient Identification confirmed using: Name, : Yes Telehealth method: voice only Patient verbally consented to treatment: Yes Patient verbally consented to billing insurance company: Yes Patient informed of any privacy concerns related to visit: Yes Minutes spent on Phone/Video with Pt.: 15 Assessment & Plan Assessment & Plan (1) S/P laparoscopic sleeve gastrectomy: Comment: May 2022 Code(s): Z98.84 - Bariatric surgery status Category: Medical (2) Obesity: Code(s): E66.9 - Obesity, unspecified Category: Medical Qualifiers: Obesity type: due to excess calories Obesity classification: adult class 1 (BMI 30 - 34.9) Serious obesity comorbidity presence: without serious comorbidity Body mass index: BMI 33.0-33.9 Qualified Code(s): E66.09 - Other obesity due to excess calories; Z68.33 - Body mass index [BMI] 33.0-33.9, adult Plan Pt to restart plan, will use 90g protein as goal since she believes she gained some weight recently and is training for a long race- 9am 4:1 shake 1 scoop with 8oz Fairlife 12pm- same shake or low carb wrap with ham and cheese- make sure wrap contains at least 3oz/20g protein 2pm - protein bar or bariatric serving of Quest protein chips or 1 reduced fat cheese stick and raw vegetables 5pm - chicken 4 oz and veg 4 oz, or can have 2oz/2oz healthy carb especially on days leading up to longer run Pt will check weight and text me weekly on Mondays to let me know how she is feeling, can adjust plan based on energy levels and weight loss. RTC 4-5 weeks for phone visit. I spent a total of 30 minutes reviewing/updating records, examining the patient and counseling the patient on weight management as detailed above.
== END 2024-03-18 10:01 | disposition home or self-care (01) ==
LOC: HO.HBS 09:55
PROVIDERS: PCP Physician Assistant; Visit Provider Physician Assistant Surgical
DX: E66.09 Other obesity due to excess calories (principal); Z68.33 Body mass index [BMI] 33.0-33.9, adult; Z90.3 Acquired absence of stomach [part of]; Z98.84 Bariatric surgery status
CPT/HCPCS: 98967

== ENCOUNTER → 2024-03-18 09:55 | Outpatient (BNVA) | payer BC, SELFPAY | PROVIDERS: PCP Physician Assistant; Visit Provider Physician Assistant Surgical ==

== ENCOUNTER → 2024-04-28 12:35 | Outpatient (BNVA) | payer BC, SELFPAY | PROVIDERS: PCP Physician Assistant; Visit Provider Physician Assistant Surgical ==

== ENCOUNTER 2024-05-26 15:34 | Outpatient (AMB) | payer BC, SELFPAY ==
[2024-05-26 15:59] VITALS: BP 130/92; PULSE 76; O2SAT 97; BMI 36.9
--- NOTE | 2024-05-26 15:59 | A.OFFPC_ITS ---
Vital Signs 05/26/24 15:59 Height 5 ft 4 in Weight 215 lb BMI 36.9 BP 130/92 H Blood Pressure Location Lt brachial Position Sitting Pulse 76 Pulse Source Pulse Oximeter Pulse Oximetry (%) 97 Oxygen Delivery Method Room Air Intake Visit Reasons: ANNUAL Intake Note: Patient is here today for a physical. 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 Accompanied by: Self / Same As Patient Allergies oxycodone [From PERCOCET] Allergy (Intermediate, Verified 05/26/24 16:06) Itching Medication List - Last Reconciled 05/26/24 by Abiel Verma PA-C bupropion HCl XL 150 mg PO QAM 90 days citalopram 40 mg PO DAILY inulin (Fiber Gummies) 2 grams PO BID iron,carbonyl-vitamin C 65 mg iron- 125 mg (Vitron-C) 1 tab PO BEDTIME lorazepam 1 mg PO BEDTIME polyethylene glycol 3350 (Miralax) 238 grams PO ONCE PRN 1 day scopolamine base 1 patch transdermal Q3D PRN 15 days semaglutide (weight loss) (Wegovy) 1 mg (0.5 mL) subcut Q7D 4 weeks sumatriptan succinate 100 mg PO BEDTIME PRN 30 days topiramate 50 mg PO BEDTIME 90 days vitamin A palmitate 3,000 mcg PO DAILY Tobacco use date assessed: 05/26/24 Dental Screening Dental Screen Date: 05/26/24 Did you have a dental visit in the last 12 months?: Yes Did you have a dental problem in the last 6 months where you did not have access to dental care?: No Was dental information given to patient?: Patient has dentist HPI ANNUAL HPI Details Patient is a 49-year-old female here today for annual physical. Patient has a past medical history significant for obesity depression, migraines, anxiety, GERD. Major depressive disorder: Continues on mental health medications and feels she is stable with her depression. She does speak with a mental therapist and sees a psychiatrist. : Obesity: Has undergone periodic surgery. Has lost over 100 lb. Feeling much better. Continues to follow weight management program here in [place]. .. Status post bariatric surgery: She has unfortunately plateaued on her weight loss and has been unable to lose much more weight . She has started GLP 1 though has not seen much weight loss. She has had an FSH blood test checked which did show she was in postmenopausal region. Vaccines: Up-to-date with tetanus vaccine, UTD with COVID . Declines COVID vaccine Mammogram: Done in March of 2024 BI-RADS 1- RALEIGHSRTATE, . Colon cancer screening: Colonoscopy done 2023, normal repeat 10 years [employer] Internship: Has seen wig comber at [facility]- recent Pap (2022) was negative. .. [facility] Medical History (Updated 05/27/24 @ 07:31 by Abiel Verma PA-C) Steatosis, liver Hiatal hernia Anal fistula Anal fissure Iron deficiency anemia Barretts esophagus Pre-op evaluation Right low back pain Polyarthralgia Atelectasis, right Right flank pain Personal history of COVID-19 Hiatal hernia Obesity Atypical chest pain Biliary colic Cholelithiasis Foot pain, bilateral Loss of transverse plantar arch of left foot RUQ abdominal pain Annual physical exam Generalized body aches Family history of adverse response to anesthesia in mother History of insomnia Depression Anxiety BMI 45.0-49.9, adult Morbid obesity due to excess calories Preoperative examination Shortness of breath Screening, anemia, deficiency, iron Screening for hypercholesterolemia Screening for hypothyroidism Screening for diabetes mellitus (DM) Migraines Surgical History History of surgical procedure (~01/23/23) History of rectal surgery History of sleeve gastrectomy S/P laparoscopic cholecystectomy (11/09/21) History of esophagogastroduodenoscopy (EGD) History of tonsillectomy and adenoidectomy History of bunionectomy Hx of hernia repair S/P panniculectomy Hx of gastric bypass Family History Mother Diabetes Heart attack Father No problems noted. Brother No problems noted. Daughter No problems noted. 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 1. Little interest or pleasure in doing things: not at all 2. Feeling down, depressed, or hopeless: not at all 3. Trouble falling or staying asleep, or sleeping too much: not at all 4. Feeling tired or having little energy: not at all 5. Poor appetite or overeating: not at all 6. Feeling bad about yourself - or that you are a failure or have let yourself or your family down: not at all 7. Trouble concentrating on things, such as reading the newspaper or watching television: not at all 8. Moving or speaking so slowly that other people could have noticed. Or the opposite - being so fidgety or restless that you have been moving around a lot more than usual: not at all 9. Thoughts that you would be better off or of hurting yourself in some way: not at all Total score: 0 Depression Screening Interpretation: Negative Depression Screening Done: Yes 19401 - PHQ-9 Billing: Yes Source: Developed by Drs. Santi Jhons, Nanda Vanegas, Uriah Sterling and colleagues, with an educational suellen from [employer] - [place]. Thrive Questionnaire Date Thrive assessed: 05/26/24 I am a: Patient What is your living situation today?: I have a steady place to live Within the past 12 months, did the food you bought not last and you didn't have the money to get more?: Never true Within the past 12 months, did you worry whether your food would run out before you got money to buy more?: Never true Do you have trouble paying for medicines?: No Do you have trouble getting transportation to medical appointments?: No Do you have trouble paying your heating and electricity bill?: No Do you have trouble taking care of your child, family member or friend?: No Do you have trouble with day-to-day activities such as bathing, preparing meals, shopping, managing finances, etc.?: No Are you currently unemployed and looking for a job?: No Are you interested in more education?: No Please select the resources that you would like help with: None Currently or been in a relationship where the following occur: No concerns reported THRIVE Score: 0 AUDIT C Alcohol Use Questionnaire (AUDIT-C) 1. How often do you have a drink containing alcohol?: 2-4 times a month 2. How many drinks containing alcohol do you have on a typical day when you are drinking?: 3 or 4 3. How often do you have six or more drinks on one occasion?: Less than monthly Total Score: 4 ANIL-7 AMB Questionnaire ANIL-7 Date ANIL - 7 assessed: 05/26/24 Feeling nervous, anxious, or on edge: 0 = Not at all Not being able to stop or control worryin = Several days Worrying too much about different things: 1 = Several days Trouble relaxin = Not at all Being so restless that it is hard to sit still: 0 = Not at all Becoming easily annoyed or irritable: 0 = Not at all Feeling afraid as if something awful might happen: 0 = Not at all Total ANIL-7 score (0-4 normal; 5-9 mild; 10-14 moderate; 15-21 severe): 2 Source: Developed by Drs. Santi Johns, Nanda Vanegas, Uriah Sterling and colleagues, with an educational suellen from [employer] - [place]. ANIL-7 Assessment Billing ANIL-7 Assessment Tool: ANIL-7 Assessment 11179 Review of Systems Const Denies body aches, Denies chills, Denies excessive sweating, Denies fatigue, Denies fever(s) and Denies headache(s) Eyes Denies blurry vision ENT Denies dysphagia, Denies vertigo, Denies dizziness, Denies headache(s), Denies hearing loss and Denies tinnitus Card Denies chest pain, Denies chest pain with activity, Denies syncope, Denies irregular heart rhythm and Denies dyspnea Resp Denies chest congestion, Denies cough, Denies hemoptysis, Denies dyspnea and Denies wheezing GI Denies abdominal pain, Denies melena, Denies hematochezia, Denies coffee ground emesis, Denies dysphagia, Denies diarrhea, Denies nausea and Denies vomiting Denies urinary frequency, Denies dysuria, Denies urinary hesitancy and Denies urinary urgency Musc Denies arthralgias, Denies limited range of motion, Denies muscle cramps and Denies muscle weakness Skin/Breast Denies rash and Denies skin ulcer Neuro Denies Abnormal speech present, Denies confusion, Denies vertigo, Denies dizziness, Denies syncope, Denies headache(s), Denies memory loss and Denies seizure-like activity Psych Denies anxiety, Denies confusion, Denies depression, Denies memory loss, Denies panic attacks and Denies paranoia Endo Denies excessive sweating, Denies fatigue, Denies flushing, Denies polydipsia and Denies polyuria Aller/Immun Denies wheezing Physical exam (Primary Care) Vital Signs: Last Vital Signs Pulse 76 05/26/24 15:59 BP 130/92 H 05/26/24 15:59 Pulse Ox 97 05/26/24 15:59 Oxygen Delivery Method Room Air 05/26/24 15:59 BMI result Body Mass Index 36.9 BMI Assessment/Plan discussion: High BMI High, discussed plan: lifestyle, weight reduction, dietary and physical activity Tobacco/Smoking Status: Tobacco use Status Tobacco use date assessed 05/26/24 05/26/24 16:09 Patient Tobacco Use Status Former Tobacco user 05/26/24 16:16 Tobacco use type Cigarette 05/26/24 16:16 e-Cigarette/Vaping Use Never Used 05/26/24 16:16 PHQ-9: PHQ-9 Score PHQ-9: Total score 0 05/26/24 16:12 Depression Screening Interpretation: Negative Thrive Assessment: Date of Thrive Assessment Date Thrive assessed 05/26/24 05/26/24 16:09 Currently or been in a relationship where the following occur: No concerns reported Const Other: Obesity General: cooperative, comfortable, no acute distress, alert and awake; No confusion Orientation/consciousness: oriented to person, oriented to place, patient oriented x3 and No confusion HENMT Head: Yes normocephalic Ears: external ears normal and TM's normal bilaterally Face and sinus: No sinus tenderness Mouth: Normal oral and palatal mucosa present and tongue normal Teeth and gingiva: dentition normal and gingiva normal Throat: Yes posterior oropharynx normal, Yes tonsils normal and Yes uvula midline Eyes Conjunctivae: conjunctivae normal Sclerae: sclerae normal Pupils: Equal, round and reactive pupils present EOM: EOMs intact bilaterally Direct Ophthalmoscopy: No no photophobia Neck Neck: Yes no lymphadenopathy, No tender and Yes no JVD Thyroid: Thyroid normal Carotids: no bruits Chest Chest palpation & inspection: no tenderness Resp Effort & Inspection: normal respiratory effort, no audible wheezes, not labored and no stridor Auscultation: no crackles, no rales, no rhonchi and no wheezes Cardio Jugular venous distension: no JVD Rate: regular rate, not bradycardic and not tachycardic Rhythm: regular rhythm Bruits: no carotid bruits Peripheral pulses: Peripheral pulses 2+ throughout GI Inspection: Yes normal to inspection, No abdominal wall ecchymosis and No visible herniation Palpation (GI): Soft to palpation, nontender, no guarding, not rigid and No hepatosplenomegaly present Auscultation: normoactive bowel sounds General: Yes no CVA tenderness Back/Spine/Pelvis Back: no CVA tenderness and No back tenderness Cervical Spine: cervical ROM normal Thoracic/Lumbar Spine: thoracic and lumbar spine normal to inspection, straight leg raise negative bilaterally, No thoraco-lumbar ROM limited and No lumbar spinal tenderness Skin Lesions: no lesions Rashes: no rashes Wounds: no wounds Neuro General: oriented to person, oriented to place, patient oriented x3, CN's II-XI intact bilaterally and No confusion Cranial nerves: Yes Equal, round and reactive pupils present and Yes Normal accommodation reflex present Cognition (Neuro): normal cognition Speech: No Abnormal speech present Gait exam (Neuro): Normal gait present Motor exam (neuro): 5/5 motor strength present throughout Extrem Right upper extremity: full ROM; no cyanosis Left upper extremity: full ROM; no cyanosis Right lower extremity: no edema Left lower extremity: no edema Psych Appearance: grossly normal Mental Status: mental status grossly normal Affect: normal affect Attitude: cooperative Thought process: Normal thought process present Coding Level of Care Code Est Pt Prev Care 40-64y(08676) Diagnoses Annual physical exam Z00.00 Class 2 obesity E66.812 MDD (major depressive disorder), recurrent episode, moderate F33.1 S/P laparoscopic sleeve gastrectomy Z98.84 Additional Codes ANIL-7 Assessment Billing - ANIL-7 Assessment Tool: ANIL-7 Assessment 44148 ([id number]) PHQ-9 - 10776 - PHQ-9 Billing: Yes ([id number]) Assessment & Plan Assessment & Plan (1) Annual physical exam: Code(s): Z00.00 - Encounter for general adult medical examination without abnormal findings Category: Medical Plan: As per HPI (2) Class 2 obesity: Code(s): E66.812 - Obesity, class 2 Category: Medical Plan: Patient does understand her BMI is over 35 and continue working on being more physically active and adapting to better eating habits to reduce her weight. She continues on up titrating doses of Wegovy and anticipate some weight loss. (3) MDD (major depressive disorder), recurrent episode, moderate: Code(s): F33.1 - Major depressive disorder, recurrent, moderate Category: Medical Plan: Patient's L[employer] has been fairly well stable with the current doses of her mental health medications. She feels he is in good spot at this moment. She does have job-related stress. (4) S/P laparoscopic sleeve gastrectomy: Comment: May 2022 Code(s): Z98.84 - Bariatric surgery status Category: Surgical Plan: As per HPI. Orders: Orders Vitamin B12 and Folate Today E53.8 - Deficiency of other specified B group vitamins, Z98.84 - Bariatric surgery status Complete Blood Count no Diff Today K21.9 - Gastro-esophageal reflux disease without esophagitis Vitamin D 25-OH Total Today Z98.84 - Bariatric surgery status Comprehensive [place]. Panel Fast Today Z98.84 - Bariatric surgery status
== END 2024-05-26 16:32 | disposition home or self-care (01) ==
PROVIDERS: PCP Physician Assistant; Visit Provider Physician Assistant
DX: Z00.00 Encounter for general adult medical examination without abnormal findings (principal); F33.1 Major depressive disorder, recurrent, moderate; E66.812 Obesity, class 2; Z68.36 Body mass index [BMI] 36.0-36.9, adult; Z98.84 Bariatric surgery status

== ENCOUNTER → 2024-05-26 15:34 | Outpatient (BNVA) | payer BC, SELFPAY | PROVIDERS: PCP Physician Assistant; Visit Provider Physician Assistant | DX: Z00.00 Encounter for general adult medical examination without abnormal findings (principal); E66.812 Obesity, class 2; Z68.36 Body mass index [BMI] 36.0-36.9, adult; F33.1 Major depressive disorder, recurrent, moderate; Z98.84 Bariatric surgery status | CPT/HCPCS: 96127 ==

== ENCOUNTER 2024-06-17 10:18 | Outpatient (AMB) | payer BC, SELFPAY ==
--- NOTE | 2024-06-17 10:04 | MHC.OFFVISWM ---
Intake Visit Reasons: TELEPHONE PO LSG 06/06/22 Allergies oxycodone [From PERCOCET] Allergy (Intermediate, Verified 05/26/24 16:06) Itching Medication List - Last Reconciled 06/17/24 by RASHAAD Diaz bupropion HCl XL 150 mg PO QAM 90 days citalopram 40 mg PO DAILY inulin (Fiber Gummies) 2 grams PO BID iron,carbonyl-vitamin C 65 mg iron- 125 mg (Vitron-C) 1 tab PO BEDTIME lorazepam 1 mg PO BEDTIME polyethylene glycol 3350 (Miralax) 238 grams PO ONCE PRN 1 day scopolamine base 1 patch transdermal Q3D PRN 15 days semaglutide (weight loss) (Wegovy) 1.7 mg (0.75 mL) subcut QWEEK 4 weeks sumatriptan succinate 100 mg PO BEDTIME PRN 30 days topiramate 50 mg PO BEDTIME 90 days vitamin A palmitate 3,000 mcg PO DAILY HPI Comments Details: This?is a?49?yo female who is s/p LSG 06/06/2022. Presents for 2 year post op visit. Weight at last visit on 04/28/2024 was 212 pounds with a BMI of 36.4, unsure of weight today.? No complaints of nausea, emesis, abdominal pain or reflux, or constipation. Pt reports she is no longer training for a marathon. 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 On Wegovy, tolerating well, weight loss was slow when she was still monitoring her weight regularly. Present meal plan includes: 9am 4:1 shake 1 scoop with 8oz Fairlife 12pm- same shake or low carb wrap with ham and cheese- make sure wrap contains at least 3oz/20g protein 2pm - protein bar or bariatric serving of [employer] protein chips or 1 reduced fat cheese stick and raw vegetables 5pm - chicken 4 oz and veg 4 oz, or can have 2oz/2oz healthy carb especially on days leading up to longer run taking MVI Exercise - joined a running club to train for marathon in [place] in July goes to the gym 2x/week to do 2-3 miles, increasing running intervals long run on the weekends, last weekend did 9 miles planning to go to [employer] 1x/week uses jelly mliler fuel during long runs has not been to the gym- has not had time [facility] Medical History (Updated 06/09/24 @ 09:44 by Abiel Verma PA-C) Steatosis, liver Hiatal hernia Anal fistula Anal fissure Iron deficiency anemia Barretts esophagus Pre-op evaluation Right low back pain Polyarthralgia Atelectasis, right Right flank pain Personal history of COVID-19 Hiatal hernia Obesity Atypical chest pain Biliary colic Cholelithiasis Foot pain, bilateral Loss of transverse plantar arch of left foot RUQ abdominal pain Annual physical exam Generalized body aches Family history of adverse response to anesthesia in mother History of insomnia Depression Anxiety BMI 45.0-49.9, adult Morbid obesity due to excess calories Preoperative examination Shortness of breath Screening, anemia, deficiency, iron Screening for hypercholesterolemia Screening for hypothyroidism Screening for diabetes mellitus (DM) Migraines Surgical History History of surgical procedure (~01/23/23) History of rectal surgery History of sleeve gastrectomy S/P laparoscopic cholecystectomy (11/09/21) History of esophagogastroduodenoscopy (EGD) History of tonsillectomy and adenoidectomy History of bunionectomy Hx of hernia repair S/P panniculectomy Hx of gastric bypass Family History Mother Diabetes Heart attack Father No problems noted. Brother No problems noted. Daughter No problems noted. 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 Cognitive needs: No Hearing needs: No Vision needs: Yes Telehealth Telehealth Telehealth Platform: Telephone Location of provider rendering services: practice address Location of patient: address on file Patient Identification confirmed using: Name, : Yes Telehealth method: voice only Patient verbally consented to treatment: Yes Patient verbally consented to billing insurance company: Yes Patient informed of any privacy concerns related to visit: Yes Minutes spent on Phone/Video with Pt.: 16 Assessment & Plan Assessment & Plan (1) Class 2 obesity: Code(s): E66.812 - Obesity, class 2 Category: Medical (2) S/P laparoscopic sleeve gastrectomy: Comment: May 2022 Code(s): Z98.84 - Bariatric surgery status Category: Surgical Plan Discussed getting adequate protein even when traveling. She wants to meet again after she travels to [place] to visit a friend in July. She plans to recommit to the gym as well. If she decides to undertake another long distance endurance event, discussed consulting with a sports equipment supervisor. Due for labs in September. RTC 2 months. I spent a total of 30 minutes reviewing/updating records, examining the patient and counseling the patient on weight management as detailed above.
== END 2024-06-17 10:35 | disposition home or self-care (01) ==
LOC: HO.HBS 10:18
PROVIDERS: PCP Physician Assistant; Visit Provider Physician Assistant Surgical
DX: E66.812 Obesity, class 2 (principal); Z68.36 Body mass index [BMI] 36.0-36.9, adult; Z90.3 Acquired absence of stomach [part of]; Z98.84 Bariatric surgery status
CPT/HCPCS: 98967

== ENCOUNTER → 2024-06-17 10:18 | Outpatient (BNVA) | payer BC, SELFPAY | PROVIDERS: PCP Physician Assistant; Visit Provider Physician Assistant Surgical ==

== ENCOUNTER 2024-12-08 12:19 | Outpatient (AMB) | payer BC, SELFPAY ==
--- NOTE | 2024-12-08 11:09 | MHC.OFFVISWM ---
Intake Visit Reasons: TELEPHONE PO LSG 06/06/22 Allergies oxycodone [From PERCOCET] Allergy (Intermediate, Verified 05/26/24 16:06) Itching Medication List - Last Reconciled 12/08/24 by RASHAAD Diaz bupropion HCl XL 150 mg PO QAM 90 days citalopram 40 mg PO DAILY inulin (Fiber Gummies) 2 grams PO BID iron,carbonyl-vitamin C 65 mg iron- 125 mg (Vitron-C) 1 tab PO BEDTIME lorazepam 1 mg PO BEDTIME polyethylene glycol 3350 (Miralax) 238 grams PO ONCE PRN 1 day scopolamine base 1 patch transdermal Q3D PRN 15 days semaglutide (weight loss) (Wegovy) 2.4 mg (0.75 mL) subcut QWEEK 4 weeks semaglutide (weight loss) (Wegovy) 2.4 mg subcut QWEEK semaglutide (weight loss) (Wegovy) 0.25 mg (0.5 mL) subcut QWEEK 4 weeks sumatriptan succinate 100 mg PO BEDTIME PRN 30 days topiramate 50 mg PO BEDTIME 90 days vitamin A palmitate 3,000 mcg PO DAILY HPI Comments Details: This?is a?49?yo female who is s/p LSG 06/06/2022. Pt was unsure of her weight at last visit and is unsure of her weight today, I almost don't want to know .? No complaints of nausea, emesis, abdominal pain or reflux, or constipation. 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 Does have a new job offer. Pt continues on Wegov[employer]. Present meal plan includes: 9am 4:1 shake 1 scoop with 8oz Fairlife 12pm- same shake or low carb wrap with ham and cheese- make sure wrap contains at least 3oz/20g protein 2pm - protein bar or bariatric serving of Quest protein chips or 1 reduced fat cheese stick and raw vegetables 5pm - chicken 4 oz and veg 4 oz, or can have 2oz/2oz healthy carb especially on days leading up to longer run taking MVI pt reports she has not been following much of a meal plan due to recent life stressors, but still trying to get enough protein and take shakes Exercise - has not been able to go to gym consistently, plans to walk more now that weather is improved did start golfing [facility] Medical History (Updated 06/09/24 @ 09:44 by Abiel Verma PA-C) Steatosis, liver Hiatal hernia Anal fistula Anal fissure Iron deficiency anemia Barretts esophagus Pre-op evaluation Right low back pain Polyarthralgia Atelectasis, right Right flank pain Personal history of COVID-19 Hiatal hernia Obesity Atypical chest pain Biliary colic Cholelithiasis Foot pain, bilateral Loss of transverse plantar arch of left foot RUQ abdominal pain Annual physical exam Generalized body aches Family history of adverse response to anesthesia in mother History of insomnia Depression Anxiety BMI 45.0-49.9, adult Morbid obesity due to excess calories Preoperative examination Shortness of breath Screening, anemia, deficiency, iron Screening for hypercholesterolemia Screening for hypothyroidism Screening for diabetes mellitus (DM) Migraines Surgical History History of surgical procedure (~01/23/23) History of rectal surgery History of sleeve gastrectomy S/P laparoscopic cholecystectomy (11/09/21) History of esophagogastroduodenoscopy (EGD) History of tonsillectomy and adenoidectomy History of bunionectomy Hx of hernia repair S/P panniculectomy Hx of gastric bypass Family History Mother Diabetes Heart attack Father No problems noted. Brother No problems noted. Daughter No problems noted. 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 Cognitive needs: No Hearing needs: No Vision needs: Yes Telehealth Telehealth Telehealth Platform: Telephone Location of provider rendering services: practice address Location of patient: address on file Patient Identification confirmed using: Name, : Yes Telehealth method: voice only Patient verbally consented to treatment: Yes Patient verbally consented to billing insurance company: Yes Patient informed of any privacy concerns related to visit: Yes Minutes spent on Phone/Video with Pt.: 16 Assessment & Plan Assessment & Plan (1) S/P laparoscopic sleeve gastrectomy: Comment: May 2022 Code(s): Z98.84 - Bariatric surgery status Category: Medical (2) Obesity: Code(s): E66.9 - Obesity, unspecified Category: Medical Qualifiers: Obesity type: due to excess calories Obesity classification: adult class 1 (BMI 30 - 34.9) Serious obesity comorbidity presence: without serious comorbidity Body mass index: BMI 33.0-33.9 Qualified Code(s): E66.09 - Other obesity due to excess calories; Z68.33 - Body mass index [BMI] 33.0-33.9, adult Plan Pt knows she needs to get labs done, did not get done after last visit. She plans to restart more high protein meal plan, brought shakes to work today. Will have labs done in the next few weeks. Having issues getting Wegovy restarted; I told her she could reach out to us if her insurance requirements have changed and she needs it prescribed by a weight mgmt practice. RTC in May for annual.
== END 2024-12-08 12:19 | disposition home or self-care (01) ==
LOC: HO.HBS 12:19
PROVIDERS: PCP Physician Assistant; Visit Provider Physician Assistant Surgical
DX: E66.09 Other obesity due to excess calories (principal); Z68.33 Body mass index [BMI] 33.0-33.9, adult; Z90.3 Acquired absence of stomach [part of]; Z98.84 Bariatric surgery status
CPT/HCPCS: 98967

== ENCOUNTER → 2024-12-08 12:19 | Outpatient (BNVA) | payer BC, SELFPAY | PROVIDERS: PCP Physician Assistant; Visit Provider Physician Assistant Surgical | DX: E66.811 Obesity, class 1 (principal); E66.09 Other obesity due to excess calories; Z68.33 Body mass index [BMI] 33.0-33.9, adult; Z90.3 Acquired absence of stomach [part of]; Z98.84 Bariatric surgery status | CPT/HCPCS: 98967 ==

== ENCOUNTER 2024-12-23 09:43 | Outpatient (REF) | payer BC, SELFPAY ==
--- NOTE | ~2024-12-23 | XR_ITS ---
CLINICAL HISTORY: M77.8 - Other enthesopathies, not elsewhere classified 4 view right shoulder Comparison: None provided Findings: Bones intact. No dislocations. Moderate degenerative disease of AC joint with joint space narrowing and osteophytosis. No erosions. No radiopaque foreign body. IMPRESSION: 1. No acute findings. Moderate DJD of the AC joint. This document has been electronically signed by: Nirmala Resendiz MD on 12/23/2024 23:01:14
[2024-12-23 10:16] LABS: MANUAL DIFF FLAG NO
[2024-12-23 10:42] LABS: Basophils Percent Auto 0.7 % (0-2); Eosinophils Absolute Auto 0.1 X10*3/uL (0.0-0.4); Hematocrit 40.8 % (37.0-47.0); Hemoglobin 12.6 g/dl (12.0-16.0); Imm Gran Abs Auto 0.01 X10*3/uL (0.00-0.03); Imm Gran Pct Auto 0.2 % (0.0-0.4); Lymphocytes Absolute Auto 1.1 X10*3/uL (1.2-4.9); Lymphocytes Percent Auto 24.1 % (20-40); Mean Corpuscular HGB Conc 30.9 g/dl (31.0-35.0); Mean Corpuscular Hemoglobin 27.6 pg (27.0-33.0); Mean Corpuscular Volume 89.3 fL (80.0-98.0); Mean Platelet Volume 10.8 fL (9.4-12.3); Monocytes Absolute Auto 0.4 X10*3/uL (0.1-1.2); Monocytes Percent Auto 8.9 % (2-11); Neutrophils Absolute Auto 2.9 x10*3/uL (2.0-8.3); Neutrophils Percent Auto 64.1 % (45-73); Platelet Count 177 X10*3/uL (160-400); Red Blood Count 4.57 X10*6/uL (4.20-5.50); Red Cell Distribution Width 15.2 % (11.0-16.0); White Blood Count 4.5 X10*3/uL (4.8-10.8)
[2024-12-23 10:52] LABS: Estimated Average Glucose 100 mg/dL; Hemoglobin A1c % 5.1 % (<6.0)
[2024-12-23 11:36] LABS: Alanine Aminotransferase 14 U/L (0-31); Albumin Level 4.3 g/dL (3.5-5.0); Alkaline Phosphatase 44 U/L (39-117); Anion Gap 8 (12-20); Aspartate Amino Transferase 24 U/L (5-31); Bilirubin Total 0.8 mg/dL (0.0-1.0); Blood Urea Nitrogen 22 mg/dL (9-16); C Reactive Protein 0.21 mg/dL (< or = 0.50); Calcium 9.4 mg/dL (8.4-10.2); Carbon Dioxide 26 mmol/L (22-29); Chloride 110 mmol/L (96-108); Cholesterol 214 mg/dL (<200); Estimated Glomerular Filt Rate > 60; Glucose Fasting 68 mg/dL (60-99); Glucose Random 68 mg/dL (60-115); HDL Cholesterol 101 mg/dL (>40); Iron 177 mcg/dL (30-160); LDL Cholesterol Calculated 97 mg/dL (<100); Percent Iron Saturation 39 % (15-50); Potassium 4.3 mmol/L (3.3-5.1); Sodium 140 mmol/L (135-145); Total Iron Binding Capacity 457 mcg/dL (228-428); Total Protein 6.8 g/dL (6.5-8.0); Triglycerides 82 mg/dL (<150); Unsaturated Iron Binding 280 ug/dL
[2024-12-23 11:40] LABS: Ferritin 8 ng/mL (10-250); Insulin 11 uU/mL (2-29)
[2024-12-23 11:51] LABS: Vitamin D 25-OH Total 29.2 ng/mL (>30)
[2024-12-23 11:55] LABS: Folate > 20.0 ng/mL (> or = 4.0); Vitamin B12 192 pg/mL (200-900)
[2024-12-24 12:02] LABS: Follicle Stimulating Hormone 61.8 mIU/mL
[2024-12-25 23:19] LABS: Zinc 81 mcg/dL (60-130)
[2024-12-26 20:03] LABS: Vitamin A 82 mcg/dL (38-98)
[2024-12-27 08:13] LABS: Vitamin B1 42 nmol/L (8-30)
== END 2024-12-23 09:44 | disposition home or self-care (01) ==
LOC: HO.XRAY 09:43
PROVIDERS: Absent Provider Physician Assistant; PCP Physician Assistant; Visit Provider Physician Assistant Surgical
DX: M77.8 Other enthesopathies, not elsewhere classified (principal)
CPT/HCPCS: 36415; 73030; 80053; 80061; 82306; 82607; 82728; 82746; 83001; 83036; 83525; 83540; 84425; 84443; 84590; 84630; 85025; 86140

== ENCOUNTER → 2024-12-23 09:49 | Outpatient (BNV) | payer BC, SELFPAY | PROVIDERS: Absent Provider Physician Assistant; PCP Physician Assistant; Visit Provider Student in an Organized Health Care Education/Training Program | DX: M19.011 Primary osteoarthritis, right shoulder (principal) | CPT/HCPCS: 73030 ==

== ENCOUNTER 2025-01-30 10:10 | Outpatient (REF) | payer OTHER, SELFPAY | END 2025-01-30 10:11 | disposition home or self-care (01) | LOC: HO.LAB 10:10 | PROVIDERS: PCP Physician Assistant; Visit Provider Physician Assistant | DX: E66.09 Other obesity due to excess calories (principal); Z68.33 Body mass index [BMI] 33.0-33.9, adult; Z98.84 Bariatric surgery status | CPT/HCPCS: 36415; 82533 ==

== ENCOUNTER 2025-02-17 12:00 | Outpatient (REF) | payer OTHER, SELFPAY ==
--- NOTE | ~2025-02-17 | XR_ITS ---
EXAMINATION: XR BILATERAL HIPS WITH AP PELVIS CLINICAL INFORMATION: M25.551 - Pain in right hip COMPARISON: None available. TECHNIQUE: AP and oblique views of both hips. AP view pelvis. FINDINGS: No acute cortical disruption or gross malalignment in either hip. 4 mm calcification adjacent to the greater trochanter of the left femur. The bony pelvis intact. There is a T-shaped radiopaque contraceptive device overlapping the right hemipelvis. XR/XR hips DAKOTAH min 3V IMPRESSION: No acute fracture or dislocation. No gross degenerative changes. Calcific bursitis, greater trochanter left femur cannot be excluded. Electronically signed by: Ventura Michael MD 02/17/2025 01:51 PM EDT RP
== END 2025-02-17 12:01 | disposition home or self-care (01) ==
LOC: HO.HMGCX 12:00
PROVIDERS: PCP Physician Assistant; Visit Provider Physician Assistant Medical
DX: M25.551 Pain in right hip (principal); M25.552 Pain in left hip
CPT/HCPCS: 73522

== ENCOUNTER 2025-02-17 12:00 | Outpatient (AMB) | payer OTHER, SELFPAY ==
[2025-02-17 12:13] VITALS: BP 116/78; PULSE 80; TEMP 36.4; O2SAT 97; BMI 40.2
--- NOTE | 2025-02-17 12:13 | MHC.OFFWIV ---
Intake Vital Signs 02/17/25 12:13 Height 5 ft 4 in Weight 234 lb BMI 40.2 BP 116/78 Blood Pressure Location Rt brachial Position Sitting Pulse 80 Pulse Source Pulse Oximeter Temp 97.5 F Temp Source Oral Pulse Oximetry (%) 97 Oxygen Delivery Method Room Air Intake Visit Reasons: EP Bad pain in hips/legs, trouble with stairs Patient Tobacco Use Status: Former Tobacco user [employer] Assistant Navigator Required: No Is last menstrual period known: No Post menopausal: No Patient : No Allergies oxycodone (From PERCOCET) Allergy (Intermediate, Verified 02/17/25 12:18) Itching Do you need a note to return to daycare/school/sports/work: Yes HPI HPI Comments History of Present Illness Details History of Present Illness - The patient is a 50-year-old female presenting with bilateral hip and leg pain. - The pain began approximately one month ago without any known injury. - It is described as excruciating, particularly affecting her ability to climb stairs and get into bed. - The right side is more affected, with pain worsening during weight-bearing activities. - She has been having restless legs. - No prior imaging or interventions have been conducted for this issue. - The patient is overweight, a condition she has dealt with for a long time. - Previous stomach surgery limits her use of NSAIDs for pain relief. - She has no trauma or falls. - She denies CP, SOB, abd pain, back pain, saddle anesthesia, numbness or tingling. Physical Exam General: Cooperative, healthy appearing, comfortable, no acute distress and well developed Orientation: Patient oriented x3 Respiratory: Normal respiratory effort and able to speak in complete sentences. Clear to auscultation bilaterally Cardiovascular: Regular rate and rhythm. Normal S1 and S2 GI: Normal to inspection. Soft to palpation and nontender Skin: No rashes or lesions noted Neuro: Sensation intact on the LE. Extremities: FROM of the hips bilaterally. Adduction and abduction is intact bilaterally. No click noted. TTP of the pelvic brim noted bilaterally. No SI joint tenderness noted. FROM of the knees and ankles. Strength is 5/5 on the LE bilaterally. Ambulates with a limp. Patient was informed and verbally consented to the use of an ambient scribe for clinic note documentation during this visit. [facility] Medical History (Updated 12/24/24 @ 11:18 by Abiel Verma PA-C) Steatosis, liver Hiatal hernia Anal fistula Anal fissure Iron deficiency anemia Barretts esophagus Pre-op evaluation Right low back pain Polyarthralgia Atelectasis, right Right flank pain Personal history of COVID-19 Hiatal hernia Obesity Atypical chest pain Biliary colic Cholelithiasis Foot pain, bilateral Loss of transverse plantar arch of left foot RUQ abdominal pain Annual physical exam Generalized body aches Family history of adverse response to anesthesia in mother History of insomnia Depression Anxiety BMI 45.0-49.9, adult Morbid obesity due to excess calories Preoperative examination Shortness of breath Screening, anemia, deficiency, iron Screening for hypercholesterolemia Screening for hypothyroidism Screening for diabetes mellitus (DM) Migraines Surgical History History of surgical procedure (~01/23/23) History of rectal surgery History of sleeve gastrectomy S/P laparoscopic cholecystectomy (11/09/21) History of esophagogastroduodenoscopy (EGD) History of tonsillectomy and adenoidectomy History of bunionectomy Hx of hernia repair S/P panniculectomy Hx of gastric bypass Family History Mother Diabetes Heart attack Father No problems noted. Brother No problems noted. Daughter No problems noted. 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551 - Pain in right hip; M25.552 - Pain in left hip Plan Most likely arthritis vs bursitis vs tendoniits Plan - Initiate x-ray imaging to evaluate the hip and pelvic region for any structural abnormalities. - Recommend physical therapy as a non-invasive intervention to manage pain and improve mobility. - Consider a combination of medications to manage pain, taking into account the patient's history of stomach surgery. - Follow up with primary care physician for further evaluation and management. Orders: Orders XR hips DAKOTAH min 3V Today M25.551 - Pain in right hip, M25.552 - Pain in left hip Medications: New diclofenac sodium 3% 1 appl topical BID PRN 100 grams 0RF hip pain 7 days prednisone 40 mg (2 x 20 mg) PO DAILY 10 tabs 0RF cyclobenzaprine 10 mg (2 x 5 mg) PO Q8H PRN 20 tabs 0RF Muscle Spasm Coding Level of Care Code Est Pt Level 4 (53241) Diagnoses Bilateral hip pain M25.551; M25.552 Laterality: bilateral
== END 2025-02-17 12:38 | disposition home or self-care (01) ==
PROVIDERS: PCP Physician Assistant; Visit Provider Physician Assistant Medical
DX: M25.551 Pain in right hip (principal); M25.552 Pain in left hip

== ENCOUNTER → 2025-02-17 13:16 | Outpatient (BNV) | payer OTHER, SELFPAY | PROVIDERS: PCP Physician Assistant; Visit Provider Radiology Diagnostic Radiology | DX: M25.552 Pain in left hip (principal) | CPT/HCPCS: 73522 ==

== ENCOUNTER 2025-03-14 10:44 | Outpatient (REF) | payer OTHER, SELFPAY ==
--- NOTE | ~2025-03-14 | MR_ITS ---
CLINICAL HISTORY: M25.552 - Pain in left hip --- Additional Notes or Special Instructions: Patient with a 4 weeks progressively worsening bilateral hip pain, x-ray MR left hip without gadolinium Comparison: CR/SR - XR HIP 2 OR MORE VIEWS BILATERAL - 02/17/25 13:29 EDT Findings: No fractures. No pathologic bone lesions. No joint effusion. No labral tear noticed on this non arthrogram study. Articular cartilage appears normal. There is edema within the tendon and muscular tendon junction of the gluteus medius overlying the left hip. There is a fluid-filled cleft within the center portion of the tendon which may be a small intra tendinous tear. No full-thickness tear. Intrapelvic structures are unremarkable. Incidentally noted nabothian cysts in the cervix. IMPRESSION: Left glute medius tendinitis with small intra tendinous tear. This document has been electronically signed by: Henry Packer MD on 03/17/2025 03:05:05
== END 2025-03-14 10:45 | disposition home or self-care (01) ==
LOC: HO.MRI 10:44
PROVIDERS: PCP Physician Assistant; Visit Provider Physician Assistant
DX: M25.552 Pain in left hip (principal)
CPT/HCPCS: 73721

== ENCOUNTER → 2025-03-14 11:04 | Outpatient (BNV) | payer OTHER, SELFPAY | PROVIDERS: PCP Physician Assistant; Visit Provider Radiology Diagnostic Radiology | DX: M76.02 Gluteal tendinitis, left hip (principal); S76.012A Strain of muscle, fascia and tendon of left hip, initial encounter | CPT/HCPCS: 73721 ==

== ENCOUNTER 2025-05-15 06:42 | Outpatient (REF) | payer OTHER, SELFPAY ==
--- NOTE | ~2025-05-15 | XR_ITS ---
EXAMINATION: XR LUMBAR SPINE 2-3 VIEWS HISTORY: M54.16 - Radiculopathy, lumbar region COMPARISON: There are no prior studies for comparison. FINDINGS: AP, lateral, and coned down views of the lumbar spine are submitted. Osseous mineralization is normal. Five nonrib-bearing lumbar vertebral bodies are identified, maintaining normal height and alignment without evidence of fracture or spondylolisthesis. The intervertebral disc spaces are preserved. The posterior elements are intact. An IUD is noted in the midline of the pelvis. XR/XR lumbar spine 2-3V IMPRESSION: Unremarkable examination of the lumbar spine. Electronically signed by: Santi Blair MD 05/15/2025 07:18 AM [facility]
== END 2025-05-15 06:43 | disposition home or self-care (01) ==
LOC: HO.XRAY 06:42
PROVIDERS: PCP Physician Assistant; Visit Provider Physician Assistant
DX: M54.16 Radiculopathy, lumbar region (principal); M25.552 Pain in left hip; M25.551 Pain in right hip; Z98.84 Bariatric surgery status
CPT/HCPCS: 72100

== ENCOUNTER → 2025-05-15 06:49 | Outpatient (BNV) | payer OTHER, SELFPAY | PROVIDERS: PCP Physician Assistant; Visit Provider Radiology Diagnostic Radiology | DX: M54.16 Radiculopathy, lumbar region (principal) | CPT/HCPCS: 72100 ==

== ENCOUNTER 2025-05-19 10:42 | Outpatient (AMB) | payer OTHER, SELFPAY ==
[2025-05-19 10:44] VITALS: BP 120/82; PULSE 79; TEMP 36.6; O2SAT 97; BMI 41.2
--- NOTE | 2025-05-19 10:44 | AM.OFFWIN_ITS ---
Intake Vital Signs 05/19/25 10:44 Height 5 ft 4 in Weight 240 lb BMI 41.2 BP 120/82 Blood Pressure Location Rt brachial Position Sitting Pulse 79 Pulse Source Pulse Oximeter Temp 98 F Temp Source Oral Pulse Oximetry (%) 97 Oxygen Delivery Method Room Air Intake Visit Reasons: ep cold symptoms Intake Note: Patient presents with c/o sore throat, body aches, cough, nasal congestion x3 days. Patient Tobacco Use Status: Former Tobacco user Allergies oxycodone (From PERCOCET) Allergy (Intermediate, Verified 05/19/25 10:47) Itching Do you need a note to return to daycare/school/sports/work: Yes HPI HPI Comments History of Present Illness Details History - The patient is a 50-year-old female pr esenting with symptoms of a upper respiratory infection. - Symptoms began 3 days ago with night s weats, chills, and body aches. - Reports head congestion, nasal congest ion, cough, and sore throat with difficulty swallowing. - Symptoms have persisted for three days without improvement. - Took [place] and tea for throat r elief. - No history of asthma or COPD. Review of Systems - General: Reports night sweats and chil ls. - Respiratory: Reports cough and sore th roat. Denies shortness of breath or wheezing. - Gastrointestinal: Denies nausea, vomit ing, or diarrhea. - Neurological: Denies headache or dizzi ness. All systems reviewed and are unremarkable except as noted in HPI Physical Exam General: Cooperative, healthy appearing, comfortable and no acute distress Orientation/consciousness: Patient oriented x3 Limitations: No limitations Head: Normal to inspection Ears: Hearing grossly normal bilaterally, external ears normal, EAC's normal bilaterally and TM's normal bilaterally Nose: Normal external nose present, Normal nares present and No nasal discharge present Face and sinus: Normal facial exam and sinuses nontender Mouth: Normal oral and palatal mucosa present and moist mucous membranes Throat: Tonsils normal, no exudates, uvula midline, posterior oropharynx erythema Eyes: Appearance normal, both eyes and all related structures Neck: Normal visual inspection, full ROM Respiratory: Clear to auscultation bilaterally. Normal respiratory effort, able to speak in complete sentences, not actively coughing, no respiratory distress, not tachypneic, no tripod positioning and no use of accessory muscles Cardiovascular: Regular rate and rhythm. Normal S1 and S2 Skin: No rashes or lesions noted Neuro: Patient oriented x3 Extremities: Normal to inspection and Yes no clubbing, cyanosis or edema [facility] Medical History Steatosis, liver Hiatal hernia Anal fistula Anal fissure Iron deficiency anemia Barretts esophagus Pre-op evaluation Right low back pain Polyarthralgia Atelectasis, right Right flank pain Personal history of COVID-19 Hiatal hernia Obesity Atypical chest pain Biliary colic Cholelithiasis Foot pain, bilateral Loss of transverse plantar arch of left foot RUQ abdominal pain Annual physical exam Generalized body aches Family history of adverse response to anesthesia in mother History of insomnia Depression Anxiety BMI 45.0-49.9, adult Morbid obesity due to excess calories Preoperative examination Shortness of breath Screening, anemia, deficiency, iron Screening for hypercholesterolemia Screening for hypothyroidism Screening for diabetes mellitus (DM) Migraines Surgical History History of surgical procedure (~01/23/23) History of rectal surgery History of sleeve gastrectomy S/P laparoscopic cholecystectomy (11/09/21) History of esophagogastroduodenoscopy (EGD) History of tonsillectomy and adenoidectomy History of bunionectomy Hx of hernia repair S/P panniculectomy Hx of gastric bypass Family History Mother Diabetes Heart attack Father No problems noted. Brother No problems noted. Daughter No problems noted. 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 Cognitive needs: No Hearing needs: No Vision needs: Yes Physical Exam Vital Signs: Last Vital Signs Temp 98 F 05/19/25 10:44 Pulse 79 05/19/25 10:44 BP 120/82 05/19/25 10:44 Pulse Ox 97 05/19/25 10:44 Oxygen Delivery Method Room Air 05/19/25 10:44 BMI result Body Mass Index 41.2 Results AMB Rapid Strep AMB Rapid Strep Negative Last Edit by Shameka Hathaway CMA on 05/19/25 11: 08 Assessment & Plan Assessment & Plan (1) URI, acute: Code(s): J06.9 - Acute upper respiratory infection, unspecified Plan: Patient was informed and verbally consented to the use of an ambient scribe for clinic note documentation during this visit. Viral Upper Respiratory Infection - VSS, pt well appearing and PE unremarkable. - Rapid strep is negative. - COVID-19, influenza, and RSV testing ordered to rule out other infections. - Recommended supportive care including rest, fluids, and [id number] medications such as decongestants and antihistamines. - Advised to return if symptoms worsen or if there is difficulty breathing. Orders: Orders SARS-CoV2/FLU/RSV Today R09.89 - Other specified symptoms and signs involving the circulatory and respiratory systems AMB Rapid Strep Screen Today Z13.9 - Encounter for screening, unspecified Coding Level of Care Code Est Pt Level 3 (48517) Diagnoses URI, acute J06.9
== END 2025-05-19 11:25 | disposition home or self-care (01) ==
PROVIDERS: PCP Physician Assistant; Visit Provider Physician Assistant
DX: Z13.9 Encounter for screening, unspecified (principal); J06.9 Acute upper respiratory infection, unspecified

== ENCOUNTER 2025-05-19 10:42 | Outpatient (REF) | payer OTHER, SELFPAY ==
[2025-05-19 14:24] LABS: Resp Syncy Virus RNA Qual PCR NEGATIVE (Negative); SARS COV2 PCR INHOUSE NEGATIVE (Negative)
== END 2025-05-19 10:43 | disposition home or self-care (01) ==
LOC: HO.LAB 10:42
PROVIDERS: PCP Physician Assistant; Visit Provider Physician Assistant
DX: J06.9 Acute upper respiratory infection, unspecified (principal); Z87.891 Personal history of nicotine dependence
CPT/HCPCS: 87637; 87880

== ENCOUNTER 2025-05-27 07:59 | Outpatient (REF) | payer OTHER, SELFPAY ==
[2025-05-27 08:39] LABS: Hematocrit 38.3 % (37.0-47.0); Hemoglobin 12.2 g/dl (12.0-16.0); Mean Corpuscular HGB Conc 31.9 g/dl (31.0-35.0); Mean Corpuscular Hemoglobin 29.0 pg (27.0-33.0); Mean Corpuscular Volume 91.0 fL (80.0-98.0); NRBC Abs Auto 0.000 X10*3/uL (0.0-0.012); NRBC Pct Auto 0.0 /100WBC (0.0-0.2); Platelet Count 210 X10*3/uL (160-400); Red Blood Count 4.21 X10*6/uL (4.20-5.50); White Blood Count 4.3 X10*3/uL (4.8-10.8)
[2025-05-27 09:07] LABS: Cholesterol 186 mg/dL (<200); HDL Cholesterol 91 mg/dL (>40); Triglycerides 114 mg/dL (<150); Uric Acid 5.2 mg/dL (2.4-5.7)
[2025-05-27 09:19] LABS: Erythrocyte Sedimentation Rate 18 MM/HR (0-20)
[2025-05-27 09:50] LABS: Folate 14.0 ng/mL (> or = 4.0); Vitamin B12 713 pg/mL (200-900)
[2025-05-28 07:03] LABS: Lyme Abs Screen <0.90 index
[2025-05-28 13:34] LABS: Anti Nuclear Antibody Screen NEGATIVE (NEGATIVE)
== END 2025-05-27 08:00 | disposition home or self-care (01) ==
LOC: HO.LAB 07:59
PROVIDERS: Physician Assistant Surgical; PCP Physician Assistant; Visit Provider Physician Assistant
DX: Z00.00 Encounter for general adult medical examination without abnormal findings (principal); N95.1 Menopausal and female climacteric states; E66.813 Obesity, class 3; F33.1 Major depressive disorder, recurrent, moderate; M67.951 Unspecified disorder of synovium and tendon, right thigh; E78.9 Disorder of lipoprotein metabolism, unspecified; M25.552 Pain in left hip; M25.551 Pain in right hip; Z13.31 Encounter for screening for depression; Z13.39 Encounter for screening examination for other mental health and behavioral disorders; Z98.84 Bariatric surgery status
CPT/HCPCS: 36415; 80061; 82306; 82550; 82607; 82746; 84550; 85027; 85652; 86038; 86200; 86431; 86617; 86618; 96127

== ENCOUNTER 2025-05-27 08:22 | Outpatient (AMB) | payer OTHER, SELFPAY ==
--- NOTE | 2025-05-27 08:35 | MHC.PC.OV ---
Vital Signs 05/27/25 08:36 Height 5 ft 4 in Weight 240 lb 4 oz BMI 41.2 BP 128/86 Blood Pressure Location Lt brachial Position Sitting Pulse 76 Pulse Source Pulse Oximeter Temp 97.1 F Temp Source Temporal Artery Scan Pulse Oximetry (%) 98 Oxygen Delivery Method Room Air Intake Visit Reasons: Annual exam Allergies oxycodone (From PERCOCET) Allergy (Intermediate, Verified 05/27/25 08:41) Itching Medication List - Last Reconciled 05/27/25 by Abiel Verma PA-C bupropion HCl XL 150 mg PO QAM 90 days cholecalciferol (vitamin D3) 25 mcg PO DAILY citalopram 40 mg PO DAILY cyanocobalamin (vitamin B-12) 1,000 mcg PO DAILY diclofenac sodium 3% 1 appl topical BID PRN 7 days inulin (Fiber Gummies) 2 grams PO BID lorazepam 1 mg PO BEDTIME polyethylene glycol 3350 (Miralax) 238 grams PO ONCE PRN 1 day sumatriptan succinate 100 mg PO BEDTIME PRN 30 days tizanidine 2 mg PO Q8H PRN 7 days topiramate 50 mg PO BEDTIME 90 days tramadol 50 mg PO BID PRN 7 days trazodone 25 - 50 mg PO BEDTIME PRN vitamin A palmitate 3,000 mcg PO DAILY Tobacco use date assessed: 05/27/25 Dental Screening Dental Screen Date: 05/27/25 Did you have a dental visit in the last 12 months?: Yes Did you have a dental problem in the last 6 months where you did not have access to dental care?: No Was dental information given to patient?: Patient has dentist HPI Annual exam HPI Details Patient is a 50-year-old female here today for annual physical. Patient has a past medical history significant for obesity depression, migraines, anxiety, GERD. Chronic pelvic pain/ hip pain--> Her primary complaint is bilateral hip pain that radiates down both legs, which has been ongoing for approximately six months. The pain is worse in the mornings and at night, exacerbated by rising from a chair and walking upstairs, and it disrupts her sleep as she is a side-sleeper. The patient believes the hip pain may have started after she began training for a race, possibly due to improper running form, although symptoms did not appear immediately. She has researched her symptoms and suspects gluteal tendinopathy, potentially related to menopause. Previous interventions included physical therapy, which was not helpful, and pain medications. Major depressive disorder: Continues on mental health medications and feels she is stable with her depression. She does speak with a mental therapist and sees a psychiatrist. .. Class 3 Obesity: Has a unfortunately gained weight back since her bariatric surgery as she has not been able to be has physically active secondary to her hip and thigh pain. Unfortunately GLP 1 therapy has not been covered through insurance Continues to follow weight management program here in [place]. .. Status post bariatric surgery: She has unfortunately plateaued on her weight loss and has been unable to lose much more weight . She has started GLP 1 though has not seen much weight loss. She has had an FSH blood test checked which did show she was in postmenopausal region. Vaccines: Up-to-date with tetanus vaccine, UTD with COVID . Declines COVID vaccine Mammogram: Done in March of 2025 BI-RADS 1- [facility], . 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 [facility] Medical History Steatosis, liver Hiatal hernia Anal fistula Anal fissure Iron deficiency anemia Barretts esophagus Pre-op evaluation Right low back pain Polyarthralgia Atelectasis, right Right flank pain Personal history of COVID-19 Hiatal hernia Obesity Atypical chest pain Biliary colic Cholelithiasis Foot pain, bilateral Loss of transverse plantar arch of left foot RUQ abdominal pain Annual physical exam Generalized body aches Family history of adverse response to anesthesia in mother History of insomnia Depression Anxiety BMI 45.0-49.9, adult Morbid obesity due to excess calories Preoperative examination Shortness of breath Screening, anemia, deficiency, iron Screening for hypercholesterolemia Screening for hypothyroidism Screening for diabetes mellitus (DM) Migraines Surgical History History of surgical procedure (~01/23/23) History of rectal surgery History of sleeve gastrectomy S/P laparoscopic cholecystectomy (11/09/21) History of esophagogastroduodenoscopy (EGD) History of tonsillectomy and adenoidectomy History of bunionectomy Hx of hernia repair S/P panniculectomy Hx of gastric bypass Family History Mother Diabetes Heart attack Father No problems noted. Brother No problems noted. Daughter No problems noted. 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 1. Little interest or pleasure in doing things: not at all 2. Feeling down, depressed, or hopeless: nearly every day 3. Trouble falling or staying asleep, or sleeping too much: more than half the days 4. Feeling tired or having little energy: more than half the days 5. Poor appetite or overeating: several days 6. Feeling bad about yourself - or that you are a failure or have let yourself or your family down: more than half the days 7. Trouble concentrating on things, such as reading the newspaper or watching television: several days 8. Moving or speaking so slowly that other people could have noticed. Or the opposite - being so fidgety or restless that you have been moving around a lot more than usual: not at all 9. Thoughts that you would be better off or of hurting yourself in some way: not at all Total score: 11 Depression Screening Interpretation: Positive Depression Screening Follow-up: Existing condition and Declines treatment Depression Screening Done: Yes 75861 - PHQ-9 Billing: Yes Source: Developed by Drs. Santi Johns, Nanda Vanegas, Uriah Sterling and colleagues, with an educational suellen from [employer] Thrive Questionnaire Date Thrive assessed: 05/27/25 I am a: Patient What is your living situation today?: I have a steady place to live Within the past 12 months, did the food you bought not last and you didn't have the money to get more?: Never true Within the past 12 months, did you worry whether your food would run out before you got money to buy more?: Never true Do you have trouble paying for medicines?: No Do you have trouble getting transportation to medical appointments?: No Do you have trouble paying your heating and electricity bill?: No Do you have trouble taking care of your child, family member or friend?: No Do you have trouble with day-to-day activities such as bathing, preparing meals, shopping, managing finances, etc.?: No Are you currently unemployed and looking for a job?: No Are you interested in more education?: No Please select the resources that you would like help with: None Currently or been in a relationship where the following occur: No concerns reported THRIVE Score: 0 AUDIT C Alcohol Use Questionnaire (AUDIT-C) 1. How often do you have a drink containing alcohol?: 2-3 times a week 2. How many drinks containing alcohol do you have on a typical day when you are drinking?: 3 or 4 3. How often do you have six or more drinks on one occasion?: Monthly Total Score: 6 ANIL-7 AMB Questionnaire ANIL-7 Date ANIL - 7 assessed: 05/27/25 Feeling nervous, anxious, or on edge: 1 = Several days Not being able to stop or control worryin = Several days Worrying too much about different things: 1 = Several days Trouble relaxin = Several days Being so restless that it is hard to sit still: 1 = Several days Becoming easily annoyed or irritable: 1 = Several days Feeling afraid as if something awful might happen: 0 = Not at all Total ANIL-7 score (0-4 normal; 5-9 mild; 10-14 moderate; 15-21 severe): 6 Source: Developed by Drs. Santi Johns, Nanda Vanegas, Uriah Sterling and colleagues, with an educational suellen from [employer] ANIL-7 Assessment Billing ANIL-7 Assessment Tool: ANIL-7 Assessment 40820 Review of Systems Const Denies body aches, Denies chills, Denies excessive sweating, Denies fatigue, Denies fever(s) and Denies headache(s) Eyes Denies blurry vision ENT Denies dysphagia, Denies vertigo, Denies dizziness, Denies headache(s), Denies hearing loss and Denies tinnitus Card Denies chest pain, Denies chest pain with activity, Denies syncope, Denies irregular heart rhythm and Denies dyspnea Resp Denies chest congestion, Denies cough, Denies hemoptysis, Denies dyspnea and Denies wheezing GI Denies abdominal pain, Denies melena, Denies hematochezia, Denies coffee ground emesis, Denies dysphagia, Denies diarrhea, Denies nausea and Denies vomiting Denies urinary frequency, Denies dysuria, Denies urinary hesitancy and Denies urinary urgency Musc Details: Bilateral hip and thigh pain Reports back pain, Denies arthralgias, Denies limited range of motion, Denies muscle cramps and Denies muscle weakness Skin/Breast Denies rash and Denies skin ulcer Neuro Denies Abnormal speech present, Denies confusion, Denies vertigo, Denies dizziness, Denies syncope, Denies headache(s), Denies memory loss and Denies seizure-like activity Psych Denies anxiety, Denies confusion, Denies depression, Denies memory loss, Denies panic attacks and Denies paranoia Endo Denies excessive sweating, Denies fatigue, Denies flushing, Denies polydipsia and Denies polyuria Aller/Immun Denies wheezing Physical exam (Primary Care) Vital Signs: Last Vital Signs Temp 97.1 F 05/27/25 08:36 Pulse 76 05/27/25 08:36 BP 128/86 05/27/25 08:36 Pulse Ox 98 05/27/25 08:36 Oxygen Delivery Method Room Air 05/27/25 08:36 BMI result Body Mass Index 41.2 Tobacco/Smoking Status: Tobacco use Status Tobacco use date assessed 05/27/25 05/27/25 08:39 Patient Tobacco Use Status Former Tobacco user 05/27/25 08:48 Tobacco use type Cigarette 05/27/25 08:48 e-Cigarette/Vaping Use Never Used 05/27/25 08:48 PHQ-9: PHQ-9 Score PHQ-9: Total score 11 05/27/25 08:44 Depression Screening Interpretation: Positive Depression Screening Follow-up: Existing condition and Declines treatment Thrive Assessment: Date of Thrive Assessment Date Thrive assessed 05/27/25 05/27/25 08:39 Currently or been in a relationship where the following occur: No concerns reported Const General: cooperative, comfortable, no acute distress, alert and awake; No confusion Orientation/consciousness: oriented to person, oriented to place, patient oriented x3 and No confusion HENMT Head: Yes normocephalic Ears: external ears normal and TM's normal bilaterally Face and sinus: No sinus tenderness Mouth: Normal oral and palatal mucosa present and tongue normal Teeth and gingiva: dentition normal and gingiva normal Throat: Yes posterior oropharynx normal, Yes tonsils normal and Yes uvula midline Eyes Conjunctivae: conjunctivae normal Sclerae: sclerae normal Pupils: Equal, round and reactive pupils present EOM: EOMs intact bilaterally Direct Ophthalmoscopy: No no photophobia Neck Neck: Yes no lymphadenopathy, No tender and Yes no JVD Thyroid: Thyroid normal Carotids: no bruits Chest Chest palpation & inspection: no tenderness Resp Effort & Inspection: normal respiratory effort, no audible wheezes, not labored and no stridor Auscultation: no crackles, no rales, no rhonchi and no wheezes Cardio Jugular venous distension: no JVD Rate: regular rate, not bradycardic and not tachycardic Rhythm: regular rhythm Bruits: no carotid bruits Peripheral pulses: Peripheral pulses 2+ throughout GI Inspection: Yes normal to inspection, No abdominal wall ecchymosis and No visible herniation Palpation (GI): Soft to palpation, nontender, no guarding, not rigid and No hepatosplenomegaly present Auscultation: normoactive bowel sounds General: Yes no CVA tenderness Back/Spine/Pelvis Back: no CVA tenderness and No back tenderness Cervical Spine: cervical ROM normal Thoracic/Lumbar Spine: thoracic and lumbar spine normal to inspection, straight leg raise negative bilaterally, No thoraco-lumbar ROM limited and No lumbar spinal tenderness Skin Lesions: no lesions Rashes: no rashes Wounds: no wounds Neuro General: oriented to person, oriented to place, patient oriented x3, CN's II-XI intact bilaterally and No confusion Cranial nerves: Yes Equal, round and reactive pupils present and Yes Normal accommodation reflex present Cognition (Neuro): normal cognition Speech: No Abnormal speech present Gait exam (Neuro): Normal gait present Motor exam (neuro): 5/5 motor strength present throughout Extrem Right upper extremity: full ROM; no cyanosis Left upper extremity: full ROM; no cyanosis Right lower extremity: no edema Left lower extremity: no edema Psych Appearance: grossly normal Mental Status: mental status grossly normal Affect: normal affect Attitude: cooperative Thought process: Normal thought process present Coding Level of Care Code Est Pt Prev Care 40-64y(14811) Diagnoses Annual physical exam Z00.00 Menopausal symptoms N95.1 Class 3 obesity E66.813 MDD (major depressive disorder), recurrent episode, moderate F33.1 Tendinopathy of right gluteus medius M67.951 Borderline high cholesterol E78.9 Additional Codes ANIL-7 Assessment Billing - ANIL-7 Assessment Tool: ANIL-7 Assessment 52622 ([id number]) PHQ-9 - 72882 - PHQ-9 Billing: Yes ([id number]) Assessment & Plan Assessment & Plan (1) Annual physical exam: Code(s): Z00.00 - Encounter for general adult medical examination without abnormal findings Category: Medical Plan: As per HPI (2) Menopausal symptoms: Code(s): N95.1 - Menopausal and female climacteric states Category: Medical Plan: Patient's follicle stimulating hormone done in December was in postmenopausal range. She does have typical vasomotor symptoms of irritability and help flashes. Regarding menopausal symptoms, the patient will discuss management, including the possibility of estrogen therapy, with her coal trammer at her upcoming appointment on June 19. The risks of hormone therapy, including blood clots and breast cancer, were discussed. (3) Class 3 obesity: Code(s): E66.813 - Obesity, class 3 Category: Medical Plan: Patient does understand her BMI is over 40, he is status post bariatric surgery though unfortunately gained weight back. Has been having a lot hip and thigh pain that has left her unable to be more physically active. (4) MDD (major depressive disorder), recurrent episode, moderate: Code(s): F33.1 - Major depressive disorder, recurrent, moderate Category: Medical Plan: Patient's PHQ-9 score positive for depression which has been an existing condition for her. She has been going to a divorce and has moved out of her home. She is not interested in mental health therapy at this time. (5) Tendinopathy of right gluteus medius: Code(s): M67.951 - Unspecified disorder of synovium and tendon, right thigh Category: Medical Plan: For the bilateral hip pain, which is consistent with gluteal tendinopathy as seen on MRI, a consultation with a assistant shift supervisor in the orthopedics department will be sought for a second opinion and treatment recommendations. The case will be presented with its 6-8-month duration, menopausal context, and lack of response to physical therapy. Thus far workup has been unrevealing. A refill of tramadol will be sent to the pharmacy to manage her pain and reduce her use of ibuprofen, given her surgical history. The patient will cancel her upcoming pain management appointment, as it is unlikely to be beneficial. (6) Borderline high cholesterol: Code(s): E78.9 - Disorder of lipoprotein metabolism, unspecified Category: Medical Plan: Recent cholesterol panel showing good control over total cholesterol and LDL. Medications: Refilled tramadol 50 mg PO BID PRN 14 tabs 0RF pain 7 days M67.951 - Unspecified disorder of synovium and tendon, right thigh
[2025-05-27 08:36] VITALS: BP 128/86; PULSE 76; TEMP 36.2; O2SAT 98; BMI 41.2
== END 2025-05-27 09:19 | disposition home or self-care (01) ==
LOC: HO.HMCH 08:23
PROVIDERS: PCP Physician Assistant; Visit Provider Physician Assistant
DX: Z00.00 Encounter for general adult medical examination without abnormal findings (principal); N95.1 Menopausal and female climacteric states; E66.813 Obesity, class 3; F33.1 Major depressive disorder, recurrent, moderate; M67.951 Unspecified disorder of synovium and tendon, right thigh; Z68.41 Body mass index [BMI] 40.0-44.9, adult; E78.9 Disorder of lipoprotein metabolism, unspecified